=== PATIENT | female | born 1945 | race African-American/Black ===

== ENCOUNTER 2017-05-07 10:12 | Inpatient (IN) | payer OTHER, BC ==
--- NOTE | 2017-05-07 10:25 | PDOC ---
History of Present Illness - General History Source: Patient Exam Limitations: No Limitations - History of Present Illness Initial Comments: 05/07/17 12:23 72 y/o F with a PMHx of diabetes, ESRD (on dialysis T--), HTN, hypercholesterolemia, BKA of RLE, left toe amputation, left foot wounds, presents to the ED with generalized weakness, nausea, vomiting x1 since last night. She also reports diarrhea since Saturday. She complains of hotness on urination, but denies dysuria. Patient recently moved here from [place]. She was receiving dialysis and wound care in [place]. She recently saw her PCP who told her she needs to be dialyzed.She denies chest pain, SOB. Denies headache, dizziness. Denies fever, chills. PCP: Dr. Deep Melgoza Vascular Surgeon: Dr. Michi Metz Automatic Clipper And Stripper: Dr. Patricia Mcfarlane <Sharmin Michelle - Last Filed: 05/07/17 12:23> <Sravani Ventura - Last Filed: 05/07/17 13:12> - General Stated Complaint: NAUSEA Time Seen by Provider: 05/07/17 10:24 Past History <Sharmin Michelle - Last Filed: 05/07/17 12:23> - Past Medical History Diabetes: Yes Dialysis: Yes HTN: Yes Hypercholesterolemia: Yes - Surgical History Cholecystectomy: Yes - Suicide/Smoking/Psychosocial Hx Smoking Status: No Smoking History: Former smoker Years of Tobacco Use: 30 Have you smoked in the past 12 months: No Number of Cigarettes Smoked Daily: 0 If you are a former smoker, when did you quit?: 30 yrs ago Hx Alcohol Use: No Drug/Substance Use Hx: No <Sraavni Ventura - Last Filed: 05/07/17 13:12> - Past Medical History Allergies/Adverse Reactions: Allergies Allergy/AdvReac Type Severity Reaction Status Date / Time adhesive tape Allergy Intermediate Itching Verified 05/07/17 10:36 levofloxacin [From Levaquin] Allergy Unknown Verified 05/07/17 10:36 Home Medications: Ambulatory Orders Amino Acids/Protein Hydrolys [Prostat Sugar-Free Packet -] 30 ml PO TID #0 packet 08/26/12 Atorvastatin Ca [Lipitor] 10 mg PO HS #0 tablet 08/26/12 Furosemide [Lasix -] 40 mg PO BID #0 tablet 08/26/12 Insulin (Novolog) [Novolog Flexpen -] 0 units SQ ACHS #0 pen 08/26/12 Lactulose (Oral Use) [Cephulac -] 20 gm PO DAILY #0 ud 08/26/12 Multivitamins Ther W-Minerals [Theragran-M -] 1 each PO DAILY #0 tablet Sevelamer Carbonate [Renvela -] 1,600 mg PO TIDCM #0 tab 08/26/12 Valsartan [Diovan] 80 mg PO DAILY #0 tablet 08/26/12 Aspirin [ASA -] 81 mg PO DAILY #0 tab.chew 03/27/13 Bactrim DS - 1 tab PO BID 12/08/13 Lantus Solostar PEN - 20 units SCJ 0700 12/08/13 Carvedilol [Coreg -] 6.25 mg PO BID 05/07/17 Hydralazine HCl [Apresoline -] 25 mg PO QID 05/07/17 Isosorbide Mononitrate [Ismo -] 10 mg PO TID 05/07/17 Review of Systems - Review of Systems Able to Perform ROS?: Yes Comments:: 05/07/17 12:23 GENERAL/CONSTITUTIONAL: (+) weakness. No fever or chills. HEAD, EYES, EARS, NOSE AND THROAT: No change in vision. No ear pain or discharge. No sore throat. CARDIOVASCULAR: No chest pain or shortness of breath. RESPIRATORY: No cough, wheezing, or hemoptysis. GASTROINTESTINAL: (+) nausea, vomiting, diarrhea. No constipation. GENITOURINARY: (+) hotness on urination. No dysuria, frequency. MUSCULOSKELETAL: No joint or muscle swelling or pain. No neck or back pain. SKIN: No rash NEUROLOGIC: No headache, vertigo, loss of consciousness, or change in strength/ sensation. ENDOCRINE: No increased thirst. No abnormal weight change. HEMATOLOGIC/LYMPHATIC: No anemia, easy bleeding, or history of blood clots. ALLERGIC/IMMUNOLOGIC: No hives or skin allergy. <Sharmin Michelle - Last Filed: 05/07/17 12:23> *Physical Exam - Vital Signs Last Vital Signs Temp Pulse Resp BP Pulse Ox 97.9 F 79 18 174/81 100 09/26/17 10:31 05/07/17 10:31 05/07/17 10:31 05/07/17 10:31 05/07/17 10:31 - Physical Exam Comments: 05/07/17 12:24 GENERAL: Awake, alert, and fully oriented, in no acute distress HEAD: No signs of trauma EYES: PERRLA, EOMI, sclera anicteric, conjunctiva clear ENT: Auricles normal inspection, hearing grossly normal, nares patent, oropharynx clear without exudates. Moist mucosa NECK: Normal ROM, supple, no lymphadenopathy, JVD, or masses LUNGS: Breath sounds equal, clear to auscultation bilaterally. No wheezes, and no crackles HEART: Regular rate and rhythm, normal S1 and S2, no murmurs, rubs or gallops ABDOMEN: Soft, nontender, normoactive bowel sounds. No guarding, no rebound. No masses EXTREMITIES: RUE fistula with bruits and thrill. BKA with prosthetic of right leg. Left foot brace, left toe amputation. Normal range of motion, no edema. No clubbing or cyanosis. No cords, erythema, or tenderness NEUROLOGICAL: Cranial nerves II through XII grossly intact. Normal speech, normal gait SKIN: Warm, Dry, normal turgor, no rashes or lesions noted. <Sharmin Michelle - Last Filed: 05/07/17 12:23> ED Treatment Course - LABORATORY CBC & Chemistry Diagram: 05/07/17 11:18 05/07/17 11:18 - ADDITIONAL ORDERS Additional order review: Laboratory Results 05/07/17 05/07/17 05/07/17 11:18 11:18 11:15 PT with INR 11.40 INR 1.04 PTT (Actin FS) 32.1 VBG pH 7.34 POC VBG pCO2 38.7 POC VBG pO2 74.9 H Mixed VBG HCO3 20.4 05/07/17 11:18 RBC 3.56 L MCV 87.3 MCHC 31.7 L RDW 15.5 D MPV 9.1 Neutrophils % 61.6 Lymphocytes % 23.8 Monocytes % 9.2 Eosinophils % 4.4 Basophils % 1.0 - Medications Given in the ED: ED Medications Discontinued Medications Generic Name Dose Route Start Last Admin Trade Name Freq PRN Reason Stop Dose Admin Ondansetron HCl 4 mg 05/07/17 10:38 05/07/17 11:17 Zofran Injection IVPUSH 05/07/17 10:39 4 mg ONCE ONE Administration <Sharmin Michelle - Last Filed: 05/07/17 12:23> - LABORATORY CBC & Chemistry Diagram: 05/07/17 11:18 05/07/17 11:18 <Sravani Ventura - Last Filed: 05/07/17 13:12> Medical Decision Making - Critical Care Time Total Critical Care Time (minutes): 30 Critical Care Statement: The care of this patient involved high complexity decision making to prevent further life threatening deterioration of the patient 's condition and/or to evaluate & treat vital organ system(s) failure or risk of failure. - Medical Decision Making 05/07/17 12:57 a/p: 72yo female with missed dialysis since returning from [place]. now with n/v -labs -potassium -Cr -monitor -ekg -cxr -will need hd today 05/07/17 12:[address] Mcfarlane who will do HD today. 05/07/17 13:08 case discussed with SASKIA Gilliland for Dr. Snow. Accepts pt to service <Sravani Ventura - Last Filed: 05/07/17 13:12> *DC/Admit/Observation/Transfer - Attestations Scribe Attestion: 05/07/17 12:25 Documentation prepared by Sharmin Michelle, acting as nuclear medicine medical director for Sravani Ventura DO. <Sharmin Michelle - Last Filed: 05/07/17 12:23> - Discharge Dispostion Admit: Yes - Attestations Physician Attestion: 05/07/17 13:09 I, Dr. Sravani Ventura DO, attest that this document has been prepared under my direction and personally reviewed by me in its entirety. I further attest, that it accurately reflects all work, treatment, procedures and medical decision -making performed by me. <Sravani Ventura - Last Filed: 05/07/17 13:12> Diagnosis at time of Disposition: Hyperkalemia, ESRD (end stage renal disease) on dialysis - Discharge Dispostion Condition at time of disposition: Guarded
[2017-05-07] MEDS ORDERED: ONDANSETRON 4 MG/2 ML VIAL IVPUSH ONE (10:38)
[2017-05-07] MEDS ORDERED: ONDANSETRON 4 MG/2 ML VIAL ONE (10:42)
--- NOTE | 2017-05-07 11:18 | EKG ---
Test Reason : Blood Pressure : / mmHG Vent. Rate : 076 BPM Atrial Rate : 076 BPM P-R Int : 160 ms QRS Dur : 078 ms QT Int : 402 ms P-R-T Axes : 053 -27 029 degrees QTc Int : 452 ms NORMAL SINUS RHYTHM CANNOT RULE OUT ANTEROSEPTAL INFARCT , AGE UNDETERMINED ABNORMAL ECG WHEN COMPARED WITH ECG OF 24-MAR-2013 01:26, MINIMAL CRITERIA FOR ANTEROSEPTAL INFARCT ARE NOW PRESENT QUESTIONABLE CHANGE IN INITIAL FORCES OF LATERAL LEADS NONSPECIFIC T WAVE ABNORMALITY NO LONGER EVIDENT IN LATERAL LEADS CLINICAL CORRELATION IS RECOMMENDED Confirmed by MARGO CASTRO MD ([id number]) on 05/07/2017 11:18:01 AM Referred By: Confirmed By:MARGO CASTRO MD
[2017-05-07 11:23] LABS: EOSINOPHIL 4.4 % (0-4.5); MCH 27.7 pg (25.7-33.7); MCHC 31.7 g/dl (32.0-36.0); MEAN CELL VOLUME 87.3 fl (80-96); MEAN PLT VOLUME 9.1 fl (7.5-11.1); NEUTROPHILS 61.6 % (42.8-82.8); PLATELET COUNT 170 K/MM3 (134-434); RDW 15.5 % (11.6-15.6); WHITE BLOOD COUNT 7.4 K/mm3 (4.0-10.0)
[2017-05-07 11:39] LABS: INR 1.04 (0.82-1.09); PROTHROMBIN TIME (PATIENT) 11.4 SEC (9.98-11.88)
[2017-05-07 11:40] LABS: VENOUS BLOOD GAS HCO3 20.4 meq/L (19-25)
[2017-05-07 11:41] LABS: VENOUS PH 7.34 (7.32-7.42)
[2017-05-07 12:36] LABS: ANION GAP 14 (8-16); CALCIUM 8.6 mg/dL (8.5-10.1); CO2 21 mmol/L (21-32); GLUCOSE,RANDOM 142 mg/dL (74-106); MAGNESIUM 2.4 mg/dL (1.8-2.4); SGOT/AST 12 U/L (15-37)
[2017-05-07 12:44] LABS: ALK PHOS 361 U/L (45-117); BILIRUBIN,TOTAL 0.6 mg/dL (0.2-1.0); CPK 67 IU/L (26-192); SGPT/ALT 19 U/L (12-78); TOT PROT 6.6 g/dl (6.4-8.2); TROPONIN I < 0.01 ng/ml (0.00-0.05)
[2017-05-07 12:46] LABS: CREATININE 13.7 mg/dL (0.55-1.02)
[2017-05-07] MEDS ORDERED: FAMOTIDINE 20 MG/50 ML IVPB 50 ML IVPB ONE ×2 (12:54→13:06)
[2017-05-07] MEDS ORDERED: hydrALAZINE HCL 25 MG TABLET (FP) PO SCH (14:00)
[2017-05-07] MEDS ORDERED: ISOSORBIDE MONONITRATE 10 MG TABLET PO SCH (14:00)
[2017-05-07] MEDS ORDERED: AMINO ACIDS PO SCH (14:00)
[2017-05-07] MEDS ORDERED: PROTEIN HYDROLYS PO SCH (14:00)
[2017-05-07] MEDS ORDERED: [UNRECOGNIZED DRUG - OTHER] PO SCH (14:00)
[2017-05-07 16:38] VITALS: BMI 29.0
--- NOTE | 2017-05-07 17:00 | CON.NEP ---
Consult Consult Specialty:: Nephrology Reason for Consultation:: ESRD - History of Present Illness Chief Complaint: MOVED TO CT AFTER 3 YEARS HAS NO HD UNIT - History Source History Provided By: Patient - Past Medical History APPLICATION INTERNSHIP: Yes: Peripheral Neuropathy Renal/: Yes: Hemodialysis - Past Surgical History Past Surgical History: Yes: AV Fistula/Graft (RT RT BKA AND LEFT TMA) - Alcohol/Substance Use Hx Alcohol Use: No - Smoking History Smoking history: Former smoker Have you smoked in the past 12 months: No Aproximately how many cigarettes per day: 0 If you are a former smoker, when did you quit?: 30 yrs ago - Social History Usual Living Arrangement: Other (WILL LIVE NOW IN [place] WITH SON) Home Medications - Allergies Allergies/Adverse Reactions: Allergies Allergy/AdvReac Type Severity Reaction Status Date / Time adhesive tape Allergy Intermediate Itching Verified 05/07/17 10:36 levofloxacin [From Levaquin] Allergy Unknown Verified 05/07/17 10:36 - Home Medications Home Medications: Ambulatory Orders Atorvastatin Ca [Lipitor] 10 mg PO HS #0 tablet 08/26/12 Furosemide [Lasix -] 40 mg PO BID #0 tablet 08/26/12 Insulin (Novolog) [Novolog Flexpen -] 0 units SQ ACHS #0 pen 08/26/12 Multivitamins Ther W-Minerals [Theragran-M -] 1 each PO DAILY #0 tablet Aspirin [ASA -] 81 mg PO DAILY #0 tab.chew 03/27/13 Acetaminophen [Tylenol] 325 mg PO ASDIR 05/07/17 Amlodipine Besylate [Norvasc -] 5 mg PO DAILY 05/07/17 Carvedilol [Coreg -] 6.25 mg PO BID 05/07/17 Docusate Sodium [Dulcolax Stool Softener] 100 mg PO ASDIR 05/07/17 Hydralazine HCl [Apresoline -] 25 mg PO QID 05/07/17 Insulin Glargine,Hum.rec.anlog [Lantus Solostar PEN (NF)] 5 units SQ HS Isosorbide Mononitrate [Ismo -] 10 mg PO TID 05/07/17 Ondansetron HCl [Zofran] 8 mg PO ASDIR 05/07/17 Pantoprazole Sodium [Protonix] 40 mg PO BID 05/07/17 Sevelamer Carbonate [Renvela] 2,400 mg PO CM 05/07/17 Family Disease History - Family Disease History Family Disease History: Diabetes: Mother Review of Systems Unable to obtain ROS, reason: FEELS OK Nephrology Consult - Height Height: 5 ft 3 in - Weight Weight: 164 lb - BMI Body Mass Index (BMI): 29.0 - Lab Results Anion Gap: Anion Gap Anion Gap 14 (8-16) 05/07/17 11:18 - Imaging Chest X-ray: Report Reviewed - Physical Examination Vital Signs: Vital Signs Temperature 97.9 F 05/07/17 10:31 Pulse Rate 68 05/07/17 15:50 Respiratory Rate 18 05/07/17 15:50 Blood Pressure 131/64 05/07/17 15:50 O2 Sat by Pulse Oximetry (%) 98 05/07/17 14:10 Constitutional: Yes: No Distress Cardiovascular: Yes: Regular Rate and Rhythm Gastrointestinal: Yes: Normal Bowel Sounds Access for Hemodialysis: AV Fistula Extremities: Yes: Amputation (RT AND LEFT TMA) Edema: No Assessment/Plan 72 YEAR OLD WITH LONG STANDING DM ESRD ON HD FOR OVER 3 YEARS PVD POST RT BKA IN [place] AND LEFT TMA NOW BACK IN [place] NEEDS PT EVAL NEED TO DECIDE ABOUT STR VS HOME OUT PT ARRANGEMENTS SHOULD BE AT [facility] [id number] OR IF NEEDS REHAB WITH INHOUSE HD THEN [facility] IN [place] FOR HTN LEAVE ON COREG AND DIOVAN STOP HYDRALAZINE AND ISOSORBIDE LASIX PO4 KEEP ON RENVELA 2 TID WITH MEALS SEEN AT HD HIPS 20 NR 3.15 K2 [employer] 2 KG EPO 10K REPEAT HD SENDY PLEASE CALL ME FOR QUESTIONS [phone]
[2017-05-07] MEDS ORDERED: EPOETIN ALFA 10,000 UNIT/1 ML VIAL IVPUSH ONE (17:45)
[2017-05-07] MEDS ORDERED: ISOSORBIDE DINITRATE 10 MG TABLET (FP) PO SCH (18:00)
[2017-05-07] MEDS: SEVELAMER CARBONATE 800 MG TAB (FP) PO SCH (19:46)
[2017-05-07] MEDS: INSULIN SLIDING SCALE (NOVOLOG) 1 VIAL SQ SCH ×2 (19:47→22:43)
[2017-05-07] MEDS: VALSARTAN 80 MG TABLET (UD) PO SCH (22:16)
[2017-05-07] MEDS: CARVEDILOL 12.5 MG TABLET (FP) PO SCH (22:16)
[2017-05-07] MEDS: ATORVASTATIN CA 10 MG TABLET (FP) PO SCH (22:16)
[2017-05-07] MEDS: HEPARIN NA (PORCINE) 5,000 UNITS/ML 1ML VIAL SQ SCH (22:17)
[2017-05-07] MEDS: BANATROL PLUS POWDER PACKET PO SCH (23:25)
[2017-05-08] MEDS ORDERED: PT OWN MED DRAWER 7, Y5N ONE ×4 (00:38→20:36)
[2017-05-08] MEDS: BANATROL PLUS POWDER PACKET PO SCH ×3 (07:10→21:58)
[2017-05-08] MEDS: INSULIN SLIDING SCALE (NOVOLOG) 1 VIAL SQ SCH ×4 (07:17→22:05)
[2017-05-08 08:41] LABS: BASOPHIL 0.8 % (0-2.0); EOSINOPHIL 4.2 % (0-4.5); MCH 27.6 pg (25.7-33.7); MCHC 31.8 g/dl (32.0-36.0); MEAN CELL VOLUME 86.8 fl (80-96); MEAN PLT VOLUME 8.3 fl (7.5-11.1); PLATELET COUNT 166 K/MM3 (134-434); RDW 15.2 % (11.6-15.6); WHITE BLOOD COUNT 5.3 K/mm3 (4.0-10.0)
[2017-05-08 09:19] LABS: ALBUMIN 2.9 g/dl (3.4-5.0); ANION GAP 9 (8-16); BILIRUBIN,TOTAL 0.4 mg/dL (0.2-1.0); CALCIUM 9.2 mg/dL (8.5-10.1); CO2 31 mmol/L (21-32); CREATININE 7.1 mg/dL (0.55-1.02); GLUCOSE,RANDOM 127 mg/dL (74-106); MAGNESIUM 2.2 mg/dL (1.8-2.4); PHOSPHOROUS 5.5 mg/dL (2.5-4.9); SGOT/AST 10 U/L (15-37); SGPT/ALT 16 U/L (12-78); TOT PROT 6.4 g/dl (6.4-8.2)
[2017-05-08 09:20] LABS: ALK PHOS 353 U/L (45-117)
[2017-05-08] MEDS ORDERED: VALSARTAN 80 MG TABLET (UD) PO SCH (10:00)
[2017-05-08] MEDS ORDERED: LACTULOSE 20 GM/30 ML UDC (FOR ORAL USE ONLY) PO SCH (10:00)
--- NOTE | 2017-05-08 10:58 | CONSULT ---
Consult Consult Specialty:: endocrine Referred by:: darcy payton NP Reason for Consultation:: diabetes mellitus/esrd - History of Present Illness Chief Complaint: diabetic foot infection wound History of Present Illness: 72 y/o F with a PMHx of diabetes, ESRD (on dialysis T--), HTN, hypercholesterolemia, BKA of RLE, left toe amputation, left foot wounds, presents to the ED with generalized weakness, nausea, vomiting x1 since last night. She also reports diarrhea since Saturday. 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: Yes: Peripheral Neuropathy Renal/: Yes: Hemodialysis - Past Surgical History Past Surgical History: Yes: AV Fistula/Graft (RT RT BKA AND LEFT TMA) - Alcohol/Substance Use Hx Alcohol Use: No - Smoking History Smoking history: Former smoker Have you smoked in the past 12 months: No Aproximately how many cigarettes per day: 0 If you are a former smoker, when did you quit?: 30 yrs ago - Social History Usual Living Arrangement: Other (WILL LIVE NOW IN [place] WITH SON) Home Medications - Allergies Allergies/Adverse Reactions: Allergies Allergy/AdvReac Type Severity Reaction Status Date / Time adhesive tape Allergy Intermediate Itching Verified 05/07/17 10:36 levofloxacin [From Levaquin] Allergy Unknown Verified 05/07/17 10:36 - Home Medications Home Medications: Ambulatory Orders Atorvastatin Ca [Lipitor] 10 mg PO HS #0 tablet 08/26/12 Furosemide [Lasix -] 40 mg PO BID #0 tablet 08/26/12 Insulin (Novolog) [Novolog Flexpen -] 0 units SQ ACHS #0 pen 08/26/12 Multivitamins Ther W-Minerals [Theragran-M -] 1 each PO DAILY #0 tablet Aspirin [ASA -] 81 mg PO DAILY #0 tab.chew 03/27/13 Acetaminophen [Tylenol] 325 mg PO ASDIR 05/07/17 Amlodipine Besylate [Norvasc -] 5 mg PO DAILY 05/07/17 Carvedilol [Coreg -] 6.25 mg PO BID 05/07/17 Docusate Sodium [Dulcolax Stool Softener] 100 mg PO ASDIR 05/07/17 Hydralazine HCl [Apresoline -] 25 mg PO QID 05/07/17 Insulin Glargine,Hum.rec.anlog [Lantus Solostar PEN (NF)] 5 units SQ HS Isosorbide Mononitrate [Ismo -] 10 mg PO TID 05/07/17 Ondansetron HCl [Zofran] 8 mg PO ASDIR 05/07/17 Pantoprazole Sodium [Protonix] 40 mg PO BID 05/07/17 Sevelamer Carbonate [Renvela] 2,400 mg PO CM 05/07/17 Family Disease History - Family Disease History Family Disease History: Diabetes: Mother Review of Systems - Review of Systems Constitutional: reports: Lethargy, Weakness Eyes: reports: Blurred Vision HENT: reports: No Symptoms Neck: reports: No Symptoms Cardiovascular: reports: Shortness of Breath Respiratory: reports: Exercise Intolerance, SOB on Exertion Gastrointestinal: reports: Bloating Genitourinary: reports: Burning Breasts: reports: No Symptoms Reported Musculoskeletal: reports: Muscle Pain, Muscle Cramps, Muscle Weakness Neurological: reports: Numbness, Unsteady Gait, Weakness Endocrine: reports: Unexplained Weight Loss Physical Exam Vital Signs: Vital Signs Temperature 98.2 F 05/08/17 08:30 Pulse Rate 73 05/08/17 10:25 Respiratory Rate 18 05/08/17 10:25 Blood Pressure 140/59 05/08/17 10:25 O2 Sat by Pulse Oximetry (%) 98 05/07/17 21:00 Constitutional: Yes: Anxious Eyes: Yes: EOM Intact HENT: Yes: Normocephalic Neck: Yes: Trachea Midline Cardiovascular: Yes: Regular Rate and Rhythm Respiratory: Yes: CTA Bilaterally Gastrointestinal: Yes: Normal Bowel Sounds ...Rectal Exam: Yes: Deferred Breast(s): Yes: WNL Musculoskeletal: Yes: Muscle Weakness Labs: CBC, BMP 05/08/17 07:10 05/08/17 07:10 Problem List - Problems (1) ESRD (end stage renal disease) on dialysis Code(s): N18.6 - END STAGE RENAL DISEASE Z99.2 - DEPENDENCE ON RENAL DIALYSIS (2) Hyperkalemia Code(s): E87.5 - HYPERKALEMIA (3) Type 2 diabetes mellitus with retinopathy without macular edema Code(s): E11.319 - TYPE 2 DIABETES W UNSP DIABETIC RTNOP W/O MACULAR EDEMA Assessment/Plan Current Active Problems ESRD (end stage renal disease) on dialysis (Acute) Hyperkalemia (Acute) iddm esrd htn diabetic foot infection sp amputation rt bka Abnormal Lab Results 05/07/17 05/07/17 05/07/17 11:15 11:18 11:18 RBC 3.56 L Hgb 9.9 L Hct 31.1 L MCHC 31.7 L Monocytes % POC VBG pO2 74.9 H Potassium 5.7 H D BUN 95 H D Creatinine 13.7 H* D Random Glucose 142 H Hemoglobin A1c % Phosphorus Ferritin AST 12 L D Alkaline Phosphatase 361 H D Albumin 3.0 L 05/07/17 05/08/17 05/08/17 11:18 07:10 07:10 RBC Hgb 10.4 L Hct MCHC 31.8 L Monocytes % 11.4 H POC VBG pO2 Potassium BUN 41 H D Creatinine 7.1 H D Random Glucose 127 H Hemoglobin A1c % Phosphorus 6.0 H D 5.5 H Ferritin AST 10 L Alkaline Phosphatase 353 H Albumin 2.9 L 05/08/17 05/08/17 07:10 07:10 RBC Hgb Hct MCHC Monocytes % POC VBG pO2 Potassium BUN Creatinine Random Glucose Hemoglobin A1c % 8.0 H D Phosphorus Ferritin 1310.494 H AST Alkaline Phosphatase Albumin Laboratory Results - last 24 hr 05/07/17 05/07/17 05/07/17 11:15 11:18 11:18 WBC RBC Hgb Hct MCV MCH MCHC RDW Plt Count MPV Neutrophils % Lymphocytes % Monocytes % Eosinophils % Basophils % PT with INR INR PTT (Actin FS) 32.1 VBG pH 7.34 POC VBG pCO2 38.7 POC VBG pO2 74.9 H Mixed VBG HCO3 20.4 Sodium 138 Potassium 5.7 H D Chloride 103 Carbon Dioxide 21 D Anion Gap 14 BUN 95 H D Creatinine 13.7 H* D Creat Clearance w eGFR 2.67 POC Glucometer Random Glucose 142 H Hemoglobin A1c % Calcium 8.6 Phosphorus Magnesium 2.4 D Ferritin Total Bilirubin 0.6 D AST 12 L D ALT 19 D Alkaline Phosphatase 361 H D Creatine Kinase 67 Troponin I < 0.01 Total Protein 6.6 Albumin 3.0 L Lipase 298 05/07/17 05/07/17 05/07/17 11:18 11:18 11:18 WBC 7.4 RBC 3.56 L Hgb 9.9 L Hct 31.1 L MCV 87.3 MCH 27.7 D MCHC 31.7 L RDW 15.5 D Plt Count 170 D MPV 9.1 Neutrophils % 61.6 Lymphocytes % 23.8 Monocytes % 9.2 Eosinophils % 4.4 Basophils % 1.0 PT with INR 11.40 INR 1.04 PTT (Actin FS) VBG pH POC VBG pCO2 POC VBG pO2 Mixed VBG HCO3 Sodium Potassium Chloride Carbon Dioxide Anion Gap BUN Creatinine Creat Clearance w eGFR POC Glucometer Random Glucose Hemoglobin A1c % Calcium Phosphorus 6.0 H D Magnesium Ferritin Total Bilirubin AST ALT Alkaline Phosphatase Creatine Kinase Troponin I Total Protein Albumin Lipase 05/07/17 05/07/17 05/08/17 16:35 22:42 07:10 WBC 5.3 RBC 3.75 Hgb 10.4 L Hct 32.5 MCV 86.8 MCH 27.6 MCHC 31.8 L RDW 15.2 Plt Count 166 MPV 8.3 Neutrophils % 57.0 Lymphocytes % 26.6 Monocytes % 11.4 H Eosinophils % 4.2 Basophils % 0.8 PT with INR INR PTT (Actin FS) VBG pH POC VBG pCO2 POC VBG pO2 Mixed VBG HCO3 Sodium Potassium Chloride Carbon Dioxide Anion Gap BUN Creatinine Creat Clearance w eGFR POC Glucometer 231 129 Random Glucose Hemoglobin A1c % Calcium Phosphorus Magnesium Ferritin Total Bilirubin AST ALT Alkaline Phosphatase Creatine Kinase Troponin I Total Protein Albumin Lipase 05/08/17 05/08/17 05/08/17 07:10 07:10 07:10 WBC RBC Hgb Hct MCV MCH MCHC RDW Plt Count MPV Neutrophils % Lymphocytes % Monocytes % Eosinophils % Basophils % PT with INR INR PTT (Actin FS) VBG pH POC VBG pCO2 POC VBG pO2 Mixed VBG HCO3 Sodium 141 Potassium 4.2 D Chloride 101 Carbon Dioxide 31 D Anion Gap 9 BUN 41 H D Creatinine 7.1 H D Creat Clearance w eGFR 5.71 POC Glucometer Random Glucose 127 H Hemoglobin A1c % 8.0 H D Calcium 9.2 Phosphorus 5.5 H Magnesium 2.2 Ferritin 1310.494 H Total Bilirubin 0.4 D AST 10 L ALT 16 Alkaline Phosphatase 353 H Creatine Kinase Troponin I Total Protein 6.4 Albumin 2.9 L Lipase 05/08/17 07:13 WBC RBC Hgb Hct MCV MCH MCHC RDW Plt Count MPV Neutrophils % Lymphocytes % Monocytes % Eosinophils % Basophils % PT with INR INR PTT (Actin FS) VBG pH POC VBG pCO2 POC VBG pO2 Mixed VBG HCO3 Sodium Potassium Chloride Carbon Dioxide Anion Gap BUN Creatinine Creat Clearance w eGFR POC Glucometer 128 Random Glucose Hemoglobin A1c % Calcium Phosphorus Magnesium Ferritin Total Bilirubin AST ALT Alkaline Phosphatase Creatine Kinase Troponin I Total Protein Albumin Lipase plan: bgm qid novolog scale levemir 15 units am ck hba1c wound care lle hd to start
--- NOTE | 2017-05-08 11:14 | PN ---
Progress Note (short form) - Note Progress Note: Vascular Surgery Pt seen and examined. Doing well. Seen in HD Right lower ext stump clean. No open wounds Left foot -- S/P amputation. Healed. There is callus and dry skin. Moisterize Left foot. That should help to soften up the callus. Gato Feliz DO
[2017-05-08] MEDS: ASPIRIN 81 MG CHEWABLE TABLETS PO SCH (14:02)
[2017-05-08] MEDS: MULTIVITAMINS THER W-MINERALS COMBO TABLET (FP) PO SCH (14:03)
[2017-05-08] MEDS: CARVEDILOL 12.5 MG TABLET (FP) PO SCH ×2 (14:03→22:01)
[2017-05-08] MEDS: SEVELAMER CARBONATE 800 MG TAB (FP) PO SCH ×3 (14:04→17:39)
[2017-05-08] MEDS: HEPARIN NA (PORCINE) 5,000 UNITS/ML 1ML VIAL SQ SCH ×2 (14:05→22:03)
--- NOTE | 2017-05-08 15:09 | HP ---
Admitting History and Physical - Primary Care Physician PCP: Deep Melgoza (Quang Zaldivar) - Admission Chief Complaint: Acute on chronic renal failure History of Present Illness: Ms. Cruz is a pleasant 72 year old female that came in through [facility] after being seen by her primary care provider for acute on chronic renal failure. As per her statement, she went to visit [place] 3 years ago, got an infection of her RLE, had amputation and was at [facility] in [place], [place]. Then she went to her sister's house. While she was doing her PT after RLE amputation, her Left foot got infected and she got all toes amputated, after which she went to [facility] in [place], [place]. She was in [place] for 3 years. She has ESRD was being dialyzed 3 days/week in [place]. She recently moved back to [place] with her son 1 week ago with no prior arrangements for dialysis. 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 Renal/: Yes: Hemodialysis - Past Surgical History Past Surgical History: Yes: AV Fistula/Graft (RT RT BKA AND LEFT TMA) - Smoking History Smoking history: Former smoker Have you smoked in the past 12 months: No Aproximately how many cigarettes per day: 0 If you are a former smoker, when did you quit?: 30 yrs ago - Alcohol/Substance Use Hx Alcohol Use: No Home Medications - Allergies Allergies/Adverse Reactions: Allergies Allergy/AdvReac Type Severity Reaction Status Date / Time adhesive tape Allergy Intermediate Itching Verified 05/07/17 10:36 levofloxacin [From Levaquin] Allergy Unknown Verified 05/07/17 10:36 - Home Medications Home Medications: Ambulatory Orders Atorvastatin Ca [Lipitor] 10 mg PO HS #0 tablet 08/26/12 Furosemide [Lasix -] 40 mg PO BID #0 tablet 08/26/12 Insulin (Novolog) [Novolog Flexpen -] 0 units SQ ACHS #0 pen 08/26/12 Multivitamins Ther W-Minerals [Theragran-M -] 1 each PO DAILY #0 tablet Aspirin [ASA -] 81 mg PO DAILY #0 tab.chew 03/27/13 Acetaminophen [Tylenol] 325 mg PO ASDIR 05/07/17 Amlodipine Besylate [Norvasc -] 5 mg PO DAILY 05/07/17 Carvedilol [Coreg -] 6.25 mg PO BID 05/07/17 Docusate Sodium [Dulcolax Stool Softener] 100 mg PO ASDIR 05/07/17 Hydralazine HCl [Apresoline -] 25 mg PO QID 05/07/17 Insulin Glargine,Hum.rec.anlog [Lantus Solostar PEN (NF)] 5 units SQ HS Isosorbide Mononitrate [Ismo -] 10 mg PO TID 05/07/17 Ondansetron HCl [Zofran] 8 mg PO ASDIR 05/07/17 Pantoprazole Sodium [Protonix] 40 mg PO BID 05/07/17 Sevelamer Carbonate [Renvela] 2,400 mg PO CM 05/07/17 Family Disease History - Family Disease History Family Disease History: Diabetes: Mother Review of Systems - Review of Systems Constitutional: reports: Weakness Eyes: reports: No Symptoms HENT: reports: No Symptoms Neck: reports: No Symptoms Cardiovascular: reports: No Symptoms Respiratory: reports: No Symptoms Gastrointestinal: reports: No Symptoms Genitourinary: reports: No Symptoms Breasts: reports: No Symptoms Reported Musculoskeletal: reports: No Symptoms Integumentary: reports: No Symptoms Neurological: reports: No Symptoms Endocrine: reports: No Symptoms Hematology/Lymphatic: reports: No Symptoms Psychiatric: reports: No Symptoms Pain Intensity: 0 Physical Examination Vital Signs: Vital Signs Temperature 98.2 F 05/08/17 08:30 Pulse Rate 73 05/08/17 12:40 Respiratory Rate 18 05/08/17 12:40 Blood Pressure 141/68 05/08/17 12:40 O2 Sat by Pulse Oximetry (%) 98 05/07/17 21:00 Constitutional: Yes: Well Nourished, No Distress, Calm Cardiovascular: Yes: Regular Rate and Rhythm Respiratory: Yes: Regular Gastrointestinal: Yes: Normal Bowel Sounds Extremities: Yes: Amputation (RLE BKA-stump LLE toes ampution-stump) Edema: No Labs: CBC, BMP 05/08/17 07:10 05/08/17 07:10 Imaging - Results Chest X-ray: Report Reviewed Problem List - Problems (1) ESRD (end stage renal disease) on dialysis Assessment/Plan: -Received dialysis yesterday and today -renal on board -creatinine improved -repeat lab in AM -dialyze as per millinery salesperson instructions Code(s): N18.6 - END STAGE RENAL DISEASE Z99.2 - DEPENDENCE ON RENAL DIALYSIS (2) Hyperkalemia Assessment/Plan: -resolved Code(s): E87.5 - HYPERKALEMIA (3) Type 2 diabetes mellitus with retinopathy without macular edema Assessment/Plan: -uncontrolled, A1C at 8.0 -seen by endocrinology -on insulin sliding scale and long acting Code(s): E11.319 - TYPE 2 DIABETES W UNSP DIABETIC RTNOP W/O MACULAR EDEMA (4) Amputation of both lower extremities Assessment/Plan: RLE BKA LLE toes -Physical therapy for gait training, has her own prosthesis and shoes. Code(s): S88.911A - COMPLETE TRAUMATIC AMPUTATION OF R LOW LEG, LEVEL UNSP, INIT S88.912A - COMPLETE TRAUMATIC AMPUTATION OF L LOW LEG, LEVEL UNSP, INIT Assessment/Plan see problem list
[2017-05-08] MEDS ORDERED: INSULIN (NOVOLOG) ASPART 100 UNITS/ML 10ML VIAL ONE (20:35)
[2017-05-08] MEDS: VALSARTAN 80 MG TABLET (UD) PO SCH (22:03)
[2017-05-08] MEDS: ATORVASTATIN CA 10 MG TABLET (FP) PO SCH (22:05)
[2017-05-09] MEDS: BANATROL PLUS POWDER PACKET PO SCH ×4 (06:00→21:30)
[2017-05-09 06:07] LABS: SERUM IRON 103 ug/dL (27-139); TOTAL IRON BINDING CAPACITY 133 ug/dL (250-450); UIBC 30 ug/dL (118-369)
[2017-05-09] MEDS: INSULIN DETEMIR 100 UNITS/ML MDV SQ SCH (06:27)
[2017-05-09] MEDS: INSULIN SLIDING SCALE (NOVOLOG) 1 VIAL SQ SCH ×4 (06:27→21:35)
[2017-05-09] MEDS ORDERED: INSULIN (NOVOLOG) ASPART 100 UNITS/ML 10ML VIAL ONE ×3 (06:46→20:38)
[2017-05-09] MEDS ORDERED: INSULIN DETEMIR 100 UNITS/ML MDV SQ ONE (06:46)
[2017-05-09] MEDS: SEVELAMER CARBONATE 800 MG TAB (FP) PO SCH ×3 (08:25→17:34)
[2017-05-09] MEDS: MULTIVITAMINS THER W-MINERALS COMBO TABLET (FP) PO SCH (10:09)
[2017-05-09] MEDS: HEPARIN NA (PORCINE) 5,000 UNITS/ML 1ML VIAL SQ SCH ×2 (10:09→21:33)
[2017-05-09] MEDS: ASPIRIN 81 MG CHEWABLE TABLETS PO SCH (10:09)
[2017-05-09] MEDS: CARVEDILOL 12.5 MG TABLET (FP) PO SCH ×2 (10:09→21:31)
--- NOTE | 2017-05-09 10:33 | PN ---
Progress Note, Physician Chief Complaint: awake alert today no complaints - Current Medication List Current Medications: Active Medications Aspirin (Asa -) 81 mg PO DAILY [facility] Last Admin: 05/09/17 10:09 Dose: 81 mg Atorvastatin Calcium (Lipitor -) 10 mg PO HS [facility] Last Admin: 05/08/17 22:05 Dose: 10 mg Carvedilol (Coreg -) 6.25 mg PO BID [facility] Last Admin: 05/09/17 10:09 Dose: 6.25 mg Heparin Sodium (Porcine) (Heparin -) 5,000 unit SQ BID [facility] Last Admin: 05/09/17 10:09 Dose: 5,000 unit Insulin Aspart (Novolog Vial Sliding Scale -) 1 vial SQ ACHS [facility] PRN Reason: Protocol Last Admin: 05/09/17 06:27 Dose: Not Given Insulin Detemir (Levemir Vial) 15 units SQ AM [facility] Last Admin: 05/09/17 06:27 Dose: 15 units Multivitamins/Minerals (Theragran-M) 1 each PO DAILY [facility] Last Admin: 05/09/17 10:09 Dose: 1 each Sevelamer Carbonate (Renvela -) 1,600 mg PO TIDCM [facility] Last Admin: 05/09/17 08:25 Dose: 1,600 mg Valsartan (Diovan -) 80 mg PO HS [facility] Last Admin: 05/08/17 22:03 Dose: 80 mg - Objective Vital Signs: Vital Signs Temperature 98.0 F 05/09/17 05:54 Pulse Rate 68 05/09/17 05:54 Respiratory Rate 18 05/09/17 05:54 Blood Pressure 134/47 05/09/17 05:54 O2 Sat by Pulse Oximetry (%) 97 05/08/17 21:00 Constitutional: Yes: Calm Neck: Yes: Trachea Midline Cardiovascular: Yes: Regular Rate and Rhythm, S1, S2 Respiratory: Yes: CTA Bilaterally Gastrointestinal: Yes: Normal Bowel Sounds, Soft Extremities: Yes: Other (R BKA left TMA) Neurological: Yes: Alert, Oriented Labs: CBC, BMP 05/08/17 07:10 05/08/17 07:10 INR, PTT INR 1.04 (0.82-1.09) 05/07/17 11:18 Problem List - Problems (1) Amputation of both lower extremities Assessment/Plan: PT eval Code(s): S88.911A - COMPLETE TRAUMATIC AMPUTATION OF R LOW LEG, LEVEL UNSP, INIT S88.912A - COMPLETE TRAUMATIC AMPUTATION OF L LOW LEG, LEVEL UNSP, INIT (2) ESRD (end stage renal disease) on dialysis Assessment/Plan: HD per renal on renvela on procrit Code(s): N18.6 - END STAGE RENAL DISEASE Z99.2 - DEPENDENCE ON RENAL DIALYSIS (3) Hyperkalemia Assessment/Plan: improved Code(s): E87.5 - HYPERKALEMIA (4) HTN (hypertension) Assessment/Plan: coreg stop hydralazine,isosorbide nad lasix Code(s): I10 - ESSENTIAL (PRIMARY) HYPERTENSION (5) Type 2 diabetes mellitus with retinopathy without macular edema Assessment/Plan: uncontrolled levemir 15 units in AM Code(s): E11.319 - TYPE 2 DIABETES W UNSP DIABETIC RTNOP W/O MACULAR EDEMA Assessment/Plan to arrange for possible STR and then HD at the facility
--- NOTE | 2017-05-09 14:27 | PN ---
Progress Note (short form) - Note Progress Note: RENAL DIALYZED YESTERDAY FEELS OK SOME ABD PAIN FEELS SHE CAN STAND UP WITH HELP SON WITH HER WANTS TO GO HOME AND GET HOME THERAPY BP GOOD BG GOOD A1C 8 CHEST CLEAR CVS S1 S2 ABD SOFT RT ARM AVF EXT RT BKA LEFT TMA HEALED LABS NOTED 72 WITH ESRD HTN DM PVD NEEDS PT HD IN AM OUT PT ARRANGEMENTS TO BE MADE CASE D/W RESEARCH STUDY ASSISTANT
[2017-05-09] MEDS ORDERED: PT OWN MED DRAWER 7, Y5N ONE ×2 (15:42→20:39)
[2017-05-09] MEDS: VALSARTAN 80 MG TABLET (UD) PO SCH (21:33)
[2017-05-09] MEDS: ATORVASTATIN CA 10 MG TABLET (FP) PO SCH (21:34)
[2017-05-09 22:37] LABS: URINE APPEARANCE TURBID; URINE BILIRUBIN NEGATIVE (NEGATIVE); URINE BLOOD 1+ (NEGATIVE); URINE COLOR AMBER; URINE GLUCOSE (UA) NEGATIVE (NEGATIVE); URINE KETONE NEGATIVE (NEGATIVE); URINE LEUK ESTERASE 3+ (NEGATIVE); URINE NITRITE NEGATIVE (NEGATIVE); URINE PROTEIN 3+ (NEGATIVE); URINE UROBILINOGEN NEGATIVE mg/dL (0.2-1.0)
[2017-05-09 22:41] LABS: URINE BACTERIA MANY /hpf (NONE SEEN); URINE RBC 11 /hpf (0-3); URINE WBC 426 /hpf (3-5)
[2017-05-10 00:07] LABS: HEP B SURFACE AB Reactive (.)
[2017-05-10] MEDS: BANATROL PLUS POWDER PACKET PO SCH ×2 (06:15→13:09)
[2017-05-10] MEDS: INSULIN DETEMIR 100 UNITS/ML MDV SQ SCH (06:23)
[2017-05-10] MEDS: INSULIN SLIDING SCALE (NOVOLOG) 1 VIAL SQ SCH ×3 (06:28→16:29)
[2017-05-10] MEDS ORDERED: INSULIN (NOVOLOG) ASPART 100 UNITS/ML 10ML VIAL ONE (06:43)
[2017-05-10] MEDS ORDERED: INSULIN DETEMIR 100 UNITS/ML MDV SQ ONE (06:43)
[2017-05-10] MEDS ORDERED: PT OWN MED DRAWER 7, Y5N ONE (06:44)
[2017-05-10] MEDS: SEVELAMER CARBONATE 800 MG TAB (FP) PO SCH ×2 (09:13→12:59)
--- NOTE | 2017-05-10 10:05 | PN ---
Progress Note, Physician Chief Complaint: patient seen in HD today History of Present Illness: has not had BM in a few days - Current Medication List Current Medications: Active Medications Aspirin (Asa -) 81 mg PO DAILY [facility] Last Admin: 05/09/17 10:09 Dose: 81 mg Atorvastatin Calcium (Lipitor -) 10 mg PO HS [facility] Last Admin: 05/09/17 21:34 Dose: 10 mg Carvedilol (Coreg -) 6.25 mg PO BID [facility] Last Admin: 05/09/17 21:31 Dose: 6.25 mg Epoetin Willis (Epogen -) 10,000 units IVPUSH ONCE ONE Stop: 05/10/17 14:30 Heparin Sodium (Porcine) (Heparin -) 5,000 unit SQ BID [facility] Last Admin: 05/09/17 21:33 Dose: 5,000 unit Insulin Aspart (Novolog Vial Sliding Scale -) 1 vial SQ ACHS [facility] PRN Reason: Protocol Last Admin: 05/10/17 06:28 Dose: Not Given Insulin Detemir (Levemir Vial) 15 units SQ AM [facility] Last Admin: 05/10/17 06:23 Dose: 15 units Multivitamins/Minerals (Theragran-M) 1 each PO DAILY [facility] Last Admin: 05/09/17 10:09 Dose: 1 each Sevelamer Carbonate (Renvela -) 1,600 mg PO TIDCM [facility] Last Admin: 05/10/17 09:13 Dose: 1,600 mg Valsartan (Diovan -) 80 mg PO HS [facility] Last Admin: 05/09/17 21:33 Dose: 80 mg - Objective Vital Signs: Vital Signs Temperature 98.4 F 05/10/17 06:00 Pulse Rate 71 05/10/17 06:00 Respiratory Rate 18 05/10/17 06:00 Blood Pressure 146/63 05/10/17 06:00 O2 Sat by Pulse Oximetry (%) 98 05/09/17 21:00 Constitutional: Yes: Calm Neck: Yes: Trachea Midline Cardiovascular: Yes: Regular Rate and Rhythm, S1, S2 Respiratory: Yes: CTA Bilaterally Gastrointestinal: Yes: Normal Bowel Sounds, Soft Extremities: Yes: Other (R bka L TMA RUE AVF) Edema: No Neurological: Yes: Alert, Oriented Labs: CBC, BMP 05/08/17 07:10 05/08/17 07:10 INR, PTT INR 1.04 (0.82-1.09) 05/07/17 11:18 Problem List - Problems (1) ESRD (end stage renal disease) on dialysis Assessment/Plan: HD per renal on renvela on procrit Code(s): N18.6 - END STAGE RENAL DISEASE Z99.2 - DEPENDENCE ON RENAL DIALYSIS (2) Amputation of both lower extremities Assessment/Plan: Patient wants home service will try to talk to her about going to STR Code(s): S88.911A - COMPLETE TRAUMATIC AMPUTATION OF R LOW LEG, LEVEL UNSP, INIT S88.912A - COMPLETE TRAUMATIC AMPUTATION OF L LOW LEG, LEVEL UNSP, INIT (3) Hyperkalemia Assessment/Plan: improved Code(s): E87.5 - HYPERKALEMIA (4) HTN (hypertension) Assessment/Plan: coreg stop hydralazine,isosorbide nad lasix Code(s): I10 - ESSENTIAL (PRIMARY) HYPERTENSION (5) Type 2 diabetes mellitus with retinopathy without macular edema Assessment/Plan: hga1c 8 seen by matthew rosa 15 units in AM Code(s): E11.319 - TYPE 2 DIABETES W UNSP DIABETIC RTNOP W/O MACULAR EDEMA Assessment/Plan family wants her to go to STR patient agreeing to STR with HD center next to it SW aware to d/w daughter as well dc today once bed available after HD
[2017-05-10] MEDS: CARVEDILOL 12.5 MG TABLET (FP) PO SCH (10:08)
[2017-05-10] MEDS: HEPARIN NA (PORCINE) 5,000 UNITS/ML 1ML VIAL SQ SCH (10:09)
[2017-05-10] MEDS ORDERED: EPOETIN ALFA 10,000 UNIT/1 ML VIAL IVPUSH ONE (11:00)
[2017-05-10] MEDS ORDERED: BISACODYL 5 MG TABLET.DR (FP) PO ONE (11:15)
[2017-05-10] MEDS ORDERED: POLYETHYLENE GLYCOL 3350 119 GM BTL PO ONE (11:15)
[2017-05-10] MEDS: ASPIRIN 81 MG CHEWABLE TABLETS PO SCH (12:59)
[2017-05-10] MEDS: MULTIVITAMINS THER W-MINERALS COMBO TABLET (FP) PO SCH (12:59)
[2017-05-10 15:14] VITALS: BP 143/70; PULSE 72; TEMP 97.9
[2017-05-10] MEDS ORDERED: CARVEDILOL 6.25 MG TABLET (FP) PO SCH (15:56)
--- NOTE | 2017-05-10 16:31 | PN ---
Progress Note (short form) - Note Progress Note: RENAL 72 WITH ESRD HTN DM PVD SEEN AT THE END OF HD HIPS20 3 HR K2 CA2.5 [facility] 2 KG BP STABLE GOING HOME TODAY OUT PT SPOT AT [facility] WILL NEED TO TRANSFER OUT PT TO [facility]
== END 2017-05-10 17:09 | disposition home or self-care (01) | DRG 640 ==
LOC: JER 10:12 → JERBED 13:09 → J5S 15:40
PROVIDERS: ADMIT Family Medicine; ATTEND Family Medicine
PROC: 5A1D60Z (ICD-10-PCS; principal; 2017-05-10)
DX: E87.5 Hyperkalemia (principal); N18.6 End stage renal disease; I12.0 Hypertensive chronic kidney disease with stage 5 chronic kidney disease or end stage renal disease; Z99.2 Dependence on renal dialysis; E11.22 Type 2 diabetes mellitus with diabetic chronic kidney disease; E11.65 Type 2 diabetes mellitus with hyperglycemia; Z79.4 Long term (current) use of insulin; E11.319 Type 2 diabetes mellitus with unspecified diabetic retinopathy without macular edema; Z87.891 Personal history of nicotine dependence
CPT/HCPCS: 36415; 71010-TC; 80053; 81003; 81015; 82728; 82803; 83036; 83540; 83550; 83690; 83735; 84100; 84484; 85025; 85610; 85730; 86704; 86706; 86708; 86803; 87340; 93005; 93010; 97116-GP; 97161-GP; 99282-25; J0885; J1644

== ENCOUNTER 2017-05-29 12:53 | Observation (INO) | payer OTHER, BC ==
[2017-05-29 13:16] VITALS: BMI 28.3
[2017-05-29 15:25] LABS: EOSINOPHIL 2.7 % (0-4.5); MCH 28.7 pg (25.7-33.7); MCHC 32.2 g/dl (32.0-36.0); MEAN CELL VOLUME 89.1 fl (80-96); MEAN PLT VOLUME 9.2 fl (7.5-11.1); NEUTROPHILS 60.2 % (42.8-82.8); PLATELET COUNT 250 K/MM3 (134-434); RDW 17.5 % (11.6-15.6); WHITE BLOOD COUNT 7.1 K/mm3 (4.0-10.0)
[2017-05-29 15:48] LABS: ALBUMIN 3.2 g/dl (3.4-5.0); ANION GAP 10 (8-16); CALCIUM 8.7 mg/dL (8.5-10.1); CO2 26 mmol/L (21-32); GLUCOSE,RANDOM 115 mg/dL (74-106); SGPT/ALT 26 U/L (12-78)
[2017-05-29 15:53] LABS: INR 1.04 (0.82-1.09); PROTHROMBIN TIME (PATIENT) 11.7 SEC (9.98-11.88)
--- NOTE | 2017-05-29 15:53 | PDOC ---
History of Present Illness - History of Present Illness Initial Comments: 05/29/17 15:51 "The patient is a 72 year old female, with a significant past medical history of ESRD(on dialysis ,,S), diabetes, hypertension, hyperlipidemia, BKA of right lower extremity, left toe amputations, who presents to the emergency department sent by Dr. Weldon, for evaluation of clot in right arm fistula. Pt states that she was unable to get HD on Saturday due to difficulty accessing her AVF. Pt was told by Dr. Weldon that she may have a partial occlusion in the shunt in her right arm. The patient reports her last dialysis was 05/25/17. She denies any chest pain, shortness of breath, diaphoresis, palpitations, numbness, or tingling. She denies any recent fever or chills. She denies any abdominal pain, nausea, or vomiting. Allergies: Levofloxacin Past Surgical History: Right arm fistula, BKA RLE Social History: Former smoker PCP: Dr. Melgoza Vascular Surgeon: Dr. Weldon Corrugated Fastener Driver: Dr. Patricia Mcfarlane " <Bradly Sofia - Last Filed: 05/29/17 17:59> <Lucien Longoria - Last Filed: 05/29/17 18:14> - General Chief Complaint: Dialysis Shunt Problem Stated Complaint: STENT MALFUNCTION Time Seen by Provider: 05/29/17 13:59 Past History - Past Medical History Diabetes: Yes Dialysis: Yes ( SAT) HTN: Yes Hypercholesterolemia: Yes - Surgical History Cholecystectomy: Yes - Suicide/Smoking/Psychosocial Hx Smoking Status: No Smoking History: Never smoked Years of Tobacco Use: 30 Have you smoked in the past 12 months: No Number of Cigarettes Smoked Daily: 0 If you are a former smoker, when did you quit?: 30 yrs ago Hx Alcohol Use: No Drug/Substance Use Hx: No Substance Use Type: None <Bradly Sofia - Last Filed: 05/29/17 17:59> <Lucien Longoria - Last Filed: 05/29/17 18:14> - Past Medical History Allergies/Adverse Reactions: Allergies Allergy/AdvReac Type Severity Reaction Status Date / Time adhesive tape Allergy Intermediate Itching Verified 05/29/17 17:41 levofloxacin [From Levaquin] Allergy Unknown Verified 05/29/17 17:41 Home Medications: Ambulatory Orders Atorvastatin Ca [Lipitor] 10 mg PO HS #0 tablet 08/26/12 Multivitamins Ther W-Minerals [Theragran-M -] 1 each PO DAILY #0 tablet Aspirin [ASA -] 81 mg PO DAILY #0 tab.chew 03/27/13 Acetaminophen [Tylenol] 325 mg PO ASDIR 05/07/17 Amlodipine Besylate [Norvasc -] 5 mg PO DAILY 05/07/17 Carvedilol [Coreg -] 6.25 mg PO BID 05/07/17 Docusate Sodium [Dulcolax Stool Softener] 100 mg PO ASDIR 05/07/17 Ondansetron HCl [Zofran] 8 mg PO ASDIR 05/07/17 Pantoprazole Sodium [Protonix] 40 mg PO BID 05/07/17 Sevelamer Carbonate [Renvela] 2,400 mg PO CM 05/07/17 Insulin (Levemir) [Levemir Vial] 15 units SQ AM #100 ml MDD 1 05/10/17 Review of Systems - Review of Systems Comments:: 05/29/17 15:53 "GENERAL/CONSTITUTIONAL: No fever or chills. No weakness. HEAD, EYES, EARS, NOSE AND THROAT: No change in vision. No ear pain or discharge. No sore throat. CARDIOVASCULAR: No chest pain or shortness of breath. RESPIRATORY: No cough, wheezing, or hemoptysis. GASTROINTESTINAL: No nausea, vomiting, diarrhea or constipation. GENITOURINARY: No dysuria, frequency, or change in urination. MUSCULOSKELETAL: No joint or muscle swelling or pain. No neck or back pain. SKIN: No rash NEUROLOGIC: No headache, vertigo, loss of consciousness, or change in strength/ sensation. ENDOCRINE: No increased thirst. No abnormal weight change. HEMATOLOGIC/LYMPHATIC: Yes clotted right arm fistula. No anemia, easy bleeding. ALLERGIC/IMMUNOLOGIC: No hives or skin allergy. " <Bradly Sofia - Last Filed: 05/29/17 17:59> *Physical Exam - Vital Signs Last Vital Signs Temp Pulse Resp BP Pulse Ox 98.5 F 77 20 182/83 99 05/29/17 13:12 05/29/17 13:12 05/29/17 13:12 05/29/17 13:12 05/29/17 13:12 - Physical Exam Comments: 05/29/17 15:53 "GENERAL: Awake, alert, and fully oriented, in no acute distress HEAD: No signs of trauma EYES: PERRLA, EOMI, sclera anicteric, conjunctiva clear ENT: Auricles normal inspection, hearing grossly normal, nares patent, oropharynx clear without exudates. Moist mucosa NECK: Nontender, no stepoffs, Normal ROM, supple, no lymphadenopathy, JVD, or masses LUNGS: Breath sounds equal, clear to auscultation bilaterally. No wheezes, and no crackles HEART: Regular rate and rhythm, normal S1 and S2, no murmurs, rubs or gallops ABDOMEN: Soft, nontender, normoactive bowel sounds. No guarding, no rebound. No masses EXTREMITIES: R AVF with palpable thrill, distal pulses intact, Normal range of motion, no edema. No clubbing or cyanosis. No cords, erythema, or tenderness NEUROLOGICAL: Cranial nerves II through XII intact. 5/5 strength and sensation in all extremities, Normal speech, normal gait SKIN: Warm, Dry, normal turgor, no rashes or lesions noted. " <Ou,Bradly - Last Filed: 05/29/17 17:59> - Vital Signs Last Vital Signs Temp Pulse Resp BP Pulse Ox 98.5 F 77 20 182/83 99 05/29/17 13:12 05/29/17 13:12 05/29/17 13:12 05/29/17 13:12 05/29/17 13:12 <Lucien Longoria - Last Filed: 05/29/17 18:14> Heart Score/ECG Review - ECG Impressions Comment:: 05/29/17 15:58 NSR, no PORSCHE/STDS, no TWIs, no peaked T waves, intervals wnl, axis wnl <Ou,Bradly - Last Filed: 05/29/17 17:59> ED Treatment Course - LABORATORY CBC & Chemistry Diagram: 05/29/17 15:03 05/29/17 15:03 - RADIOLOGY Radiology Studies Ordered: Category Date Time Status CHEST X-RAY PORTABLE* [RAD] Stat Radiology 05/29/17 14:25 Taken DUPLEX ART. UPPER COMPL US [US] Stat Ultrasound 05/29/17 15:15 Ordered <Ou,Bradly - Last Filed: 05/29/17 17:59> - LABORATORY CBC & Chemistry Diagram: 05/29/17 15:03 05/29/17 15:03 - ADDITIONAL ORDERS Additional order review: Laboratory Results 05/29/17 05/29/17 15:03 15:03 PT with INR 11.70 INR 1.04 PTT (Actin FS) 22.2 L D Sodium 139 Potassium 5.6 H D Chloride 103 Carbon Dioxide 26 Anion Gap 10 BUN 79 H D Creatinine 10.3 H* D Creat Clearance w eGFR 3.72 Random Glucose 115 H Calcium 8.7 Total Bilirubin 0.4 AST 32 D ALT 26 D Alkaline Phosphatase 401 H Total Protein 7.2 Albumin 3.2 L 05/29/17 15:03 RBC 3.72 MCV 89.1 MCHC 32.2 RDW 17.5 H D MPV 9.2 D Neutrophils % 60.2 Lymphocytes % 28.1 Monocytes % 8.0 Eosinophils % 2.7 Basophils % 1.0 - RADIOLOGY Radiograph Interpretation: 05/29/17 18:11 EXAM: RUE arterial doppler US INTERPRETED BY: Dr. Alvares REVIEWED BY: Dr. Sofia IMPRESSION: Occluded outflow vein distally. <Lucien Longoria - Last Filed: 05/29/17 18:14> Medical Decision Making - Medical Decision Making 05/29/17 15:58 72 F with ESRD on HD T// presenting with possible AVF malfunction. Pt with no acute complaints. - Labs - US of AVF - Vascular consult 05/29/17 16:48 Surgical team at bedside prepping for Shiley catheter. Spoke with Dr. 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 Pt to be admitted to hospitalist. 05/29/17 17:59 Case discussed in detail with admitting physician including history, physical exam and ancillary studies. Admitting physician has assumed care for the patient and will follow all pending diagnostics and complete the evaluation and treatment. <Bradly Sofia - Last Filed: 05/29/17 17:59> - Medical Decision Making 05/29/17 16:09 First call placed to Dr. Weldon at 16:09. Awaiting call back. First call placed to Dr. Mcfarlane at 16:40. Case discussed with Dr. Jameson at this time. <Lucien Longoria - Last Filed: 05/29/17 18:14> *DC/Admit/Observation/Transfer - Discharge Dispostion Admit: Yes - Attestations Physician Attestion: 05/29/17 18:00 I, Dr. Bradly Sofia MD, attest that this document has been prepared under my direction and personally reviewed by me in its entirety. I further attest, that it accurately reflects all work, treatment, procedures and medical decision -making performed by me. <Bradly Sofia - Last Filed: 05/29/17 17:59> <Lucien Longoria - Last Filed: 05/29/17 18:14> Diagnosis at time of Disposition: AV fistula thrombosis - Referrals Referrals: Deep Melgoza MD [Primary Care Provider] -
[2017-05-29 15:54] LABS: ALK PHOS 401 U/L (45-117); BILIRUBIN,TOTAL 0.4 mg/dL (0.2-1.0); TOT PROT 7.2 g/dl (6.4-8.2)
[2017-05-29 15:55] LABS: ACTIVATED PTT 22.2 SECONDS (26.9-34.4)
[2017-05-29 15:56] LABS: SGOT/AST 32 U/L (15-37)
[2017-05-29 15:57] LABS: CREATININE 10.3 mg/dL (0.55-1.02)
[2017-05-29] MEDS ORDERED: LIDOCAINE HCL 1%, 10 MG/ML (20ML VIAL) ONE (17:37)
--- NOTE | 2017-05-29 19:15 | PN ---
Progress Note (short form) - Note Progress Note: vascular surgery: attempted b/l groin femoral catheter placement, unable to pass dilators. Used US guided for left, good blood flow and wire passing but unable to dilate vessels. S/w with Elsa Merritt and the medical team. Kayexeate as needed. Pt comfortable without SOB. Will attempt cath placement in IR or by Dr. Weldon in the am.
--- NOTE | 2017-05-29 19:17 | HP ---
CHIEF COMPLAINT: "My shunt is clogged." PCP: Abad HISTORY OF PRESENT ILLNESS: This is a 72yo woman with PMH HTN, DM, ESRD on HD, choleycystectomy, R BKA and L TMA who was sent to ED by her vascular surgeon for clogged AV fistula. She denies any fevers, chills, nausea, chest pain, SOB, dizziness. Pt reports ocasional diarrhea over past 2 days. ER course was notable for: (1) Cr- 10.3 (2) K-5.6 Recent Travel: denies PAST MEDICAL HISTORY: see HPI PAST SURGICAL HISTORY: see HPI Social History: Smoking: denies Alcohol: denies Drugs: denies Family History: Allergies adhesive tape Allergy (Intermediate, Verified 05/29/17 17:41) Itching levofloxacin [From Levaquin] Allergy (Unknown, Verified 05/29/17 17:41) HOME MEDICATIONS: Home Medications Medication Instructions Recorded Atorvastatin Ca [Lipitor] 10 mg PO HS #0 tablet 08/26/12 Multivitamins Ther W-Minerals 1 each PO DAILY #0 tablet 08/26/12 [Theragran-M -] Aspirin [ASA -] 81 mg PO DAILY #0 tab.chew 03/27/13 Acetaminophen [Tylenol] 325 mg PO ASDIR 05/07/17 Amlodipine Besylate [Norvasc -] 5 mg PO DAILY 05/07/17 Carvedilol [Coreg -] 6.25 mg PO BID 05/07/17 Docusate Sodium [Dulcolax Stool 100 mg PO ASDIR 05/07/17 Softener] Ondansetron HCl [Zofran] 8 mg PO ASDIR 05/07/17 Pantoprazole Sodium [Protonix] 40 mg PO BID 05/07/17 Sevelamer Carbonate [Renvela] 2,400 mg PO CM 05/07/17 Insulin (Levemir) [Levemir Vial] 15 units SQ AM #100 ml MDD 1 05/10/17 REVIEW OF SYSTEMS CONSTITUTIONAL: Absent: fever, chills, diaphoresis, generalized weakness, malaise, loss of appetite, weight change HEENT: Absent: rhinorrhea, nasal congestion, throat pain, throat swelling, difficulty swallowing, mouth swelling, ear pain, eye pain, visual changes CARDIOVASCULAR: Absent: chest pain, syncope, palpitations, irregular heart rate, lightheadedness , peripheral edema RESPIRATORY: Absent: cough, shortness of breath, dyspnea with exertion, orthopnea, wheezing, stridor, hemoptysis GASTROINTESTINAL: Present- diarrhea Absent: abdominal pain, abdominal distension, nausea, vomiting, constipation, melena, hematochezia GENITOURINARY: Absent: dysuria, frequency, urgency, hesitancy, hematuria, flank pain, genital pain MUSCULOSKELETAL: Absent: myalgia, arthralgia, joint swelling, back pain, neck pain SKIN: Absent: rash, itching, pallor HEMATOLOGIC/IMMUNOLOGIC: Absent: easy bleeding, easy bruising, lymphadenopathy, frequent infections ENDOCRINE: Absent: unexplained weight gain, unexplained weight loss, heat intolerance, cold intolerance NEUROLOGIC: Absent: headache, focal weakness or paresthesias, dizziness, unsteady gait, seizure, mental status changes, bladder or bowel incontinence PSYCHIATRIC: Absent: anxiety, depression, suicidal or homicidal ideation, hallucinations. PHYSICAL EXAMINATION GENERAL: Awake, alert, and fully oriented, in no acute distress. HEAD: Normal with no signs of trauma. EYES: Pupils equal, round and reactive to light, extraocular movements intact, sclera anicteric, conjunctiva clear. No lid lag. EARS, NOSE, THROAT: Ears normal, nares patent, oropharynx clear without exudates. Moist mucous membranes. NECK: Normal range of motion, supple without lymphadenopathy, JVD, or masses. LUNGS: Breath sounds equal, clear to auscultation bilaterally. No wheezes, and no crackles. No accessory muscle use. HEART: Regular rate and rhythm, normal S1 and S2 without murmur, rub or gallop. ABDOMEN: Soft, nontender, not distended, normoactive bowel sounds, no guarding, no rebound, no masses. No hepatomegaly or splenomegaly. MUSCULOSKELETAL: Normal range of motion at all joints. No bony deformities or tenderness. No CVA tenderness. UPPER EXTREMITIES: 2+ pulses, warm, well-perfused. No cyanosis. No clubbing. No peripheral edema. RUE AV fistula with (+) bruit (+) thrill LOWER EXTREMITIES: 2+ pulses, warm, well-perfused. No calf tenderness. No peripheral edema. R BKA. L TMA. NEUROLOGICAL: Cranial nerves II-XII intact. Normal speech. Normal gait. PSYCHIATRIC: Cooperative. Good eye contact. Appropriate mood and affect. SKIN: Warm, dry, normal turgor, no rashes or lesions noted, normal capillary refill. ASSESSMENT/PLAN: A: 72yo woman with ESRD needs dialysis access and HD treatment. P: ESRD - IR for dialysis access - Renal consult following - Vascular following for AV shunt evaluation HTN - elevated - continue Norvasc - continue coreg DM - FS qACHS - home Levemir F/E/N - renal diet - replete prn PPX - OOB Dispo- requires observation of acute medical conditions Visit type - Emergency Visit Emergency Visit: Yes ED Registration Date: 05/29/17 Care time: The patient presented to the Emergency Department on the above date and was hospitalized for further evaluation of their emergent condition. - New Patient This patient is new to me today: Yes Date on this admission: 05/29/17 - Critical Care Critical Care patient: No
[2017-05-29] MEDS ORDERED: ACETAMINOPHEN 325 MG TABLET (FP) PO SCH (19:30)
[2017-05-29] MEDS ORDERED: ONDANSETRON 8 MG TABLET (FP) PO SCH (19:30)
--- NOTE | 2017-05-29 20:45 | CON.NEP ---
Consult Consult Specialty:: Nephrology Referred by:: Medicine Reason for Consultation:: End stage renal disease - History of Present Illness History of Present Illness: 72 year old female with history ot type 2 diabetes mellitus, hypertension and end stage renal disease admitted with hemodialysis access malfunction Patient denies shortness of breath , chest pain , nausea or vomiting. She received her last dialysis last Saturday. Patient was seen today by vascular surgery . 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: Peripheral Neuropathy Cardio/Vascular: Yes: HTN Renal/: Yes: Renal Failure, Hemodialysis Heme/Onc: Yes: Anemia Endocrine: Yes: Diabetes Mellitus - Past Surgical History Past Surgical History: Yes: AV Fistula/Graft (RT RT BKA AND LEFT TMA) - Alcohol/Substance Use Hx Alcohol Use: No - Smoking History Smoking history: Never smoked Have you smoked in the past 12 months: No Aproximately how many cigarettes per day: 0 If you are a former smoker, when did you quit?: 30 yrs ago - Social History Usual Living Arrangement: Other (WILL LIVE NOW IN [place] WITH SON) Home Medications - Allergies Allergies/Adverse Reactions: Allergies Allergy/AdvReac Type Severity Reaction Status Date / Time adhesive tape Allergy Intermediate Itching Verified 05/29/17 17:41 levofloxacin [From Levaquin] Allergy Unknown Verified 05/29/17 17:41 - Home Medications Home Medications: Ambulatory Orders Atorvastatin Ca [Lipitor] 10 mg PO HS #0 tablet 08/26/12 Multivitamins Ther W-Minerals [Theragran-M -] 1 each PO DAILY #0 tablet Aspirin [ASA -] 81 mg PO DAILY #0 tab.chew 03/27/13 Acetaminophen [Tylenol] 325 mg PO ASDIR 05/07/17 Amlodipine Besylate [Norvasc -] 5 mg PO DAILY 05/07/17 Carvedilol [Coreg -] 6.25 mg PO BID 05/07/17 Docusate Sodium [Dulcolax Stool Softener] 100 mg PO ASDIR 05/07/17 Ondansetron HCl [Zofran] 8 mg PO ASDIR 05/07/17 Pantoprazole Sodium [Protonix] 40 mg PO BID 05/07/17 Sevelamer Carbonate [Renvela] 2,400 mg PO CM 05/07/17 Insulin (Levemir) [Levemir Vial] 15 units SQ AM #100 ml MDD 1 05/10/17 Family Disease History - Family Disease History Family Disease History: Diabetes: Mother Review of Systems - Review of Systems Constitutional: reports: No Symptoms Cardiovascular: reports: No Symptoms Respiratory: reports: No Symptoms Gastrointestinal: reports: No Symptoms Nephrology Consult - Height Height: 5 ft 3 in - Weight Weight: 160 lb - BMI Body Mass Index (BMI): 28.3 - Lab Results CBC,BMP: CBCD WBC 7.1 K/mm3 (4.0-10.0) D 05/29/17 15:03 RBC 3.72 M/mm3 (3.60-5.2) 05/29/17 15:03 Hgb 10.7 GM/dL (10.7-15.3) 05/29/17 15:03 Hct 33.1 % (32.4-45.2) 05/29/17 15:03 MCV 89.1 fl (80-96) 05/29/17 15:03 MCHC 32.2 g/dl (32.0-36.0) 05/29/17 15:03 RDW 17.5 % (11.6-15.6) H D 05/29/17 15:03 Plt Count 250 K/MM3 (134-434) D 05/29/17 15:03 MPV 9.2 fl (7.5-11.1) D 05/29/17 15:03 CMP Sodium 139 mmol/L (136-145) 05/29/17 15:03 Potassium 5.6 mmol/L (3.5-5.1) H D 05/29/17 15:03 Chloride 103 mmol/L (98-107) 05/29/17 15:03 Carbon Dioxide 26 mmol/L (21-32) 05/29/17 15:03 Anion Gap 10 (8-16) 05/29/17 15:03 BUN 79 mg/dL (7-18) H D 05/29/17 15:03 Creatinine 10.3 mg/dL (0.55-1.02) H* D 05/29/17 15:03 Creat Clearance w eGFR 3.72 (>60) 05/29/17 15:03 Calcium 8.7 mg/dL (8.5-10.1) 05/29/17 15:03 Total Bilirubin 0.4 mg/dL (0.2-1.0) 05/29/17 15:03 AST 32 U/L (15-37) D 05/29/17 15:03 ALT 26 U/L (12-78) D 05/29/17 15:03 Alkaline Phosphatase 401 U/L (45-117) H 05/29/17 15:03 Total Protein 7.2 g/dl (6.4-8.2) 05/29/17 15:03 Albumin 3.2 g/dl (3.4-5.0) L 05/29/17 15:03 Anion Gap: Anion Gap Anion Gap 10 (8-16) 05/29/17 15:03 - Physical Examination Vital Signs: Vital Signs Temperature 98.5 F 05/29/17 13:12 Pulse Rate 77 05/29/17 13:12 Respiratory Rate 20 05/29/17 13:12 Blood Pressure 182/83 05/29/17 13:12 O2 Sat by Pulse Oximetry (%) 99 05/29/17 13:12 Constitutional: Yes: Well Nourished, No Distress, Calm Eyes: Yes: WNL HENT: Yes: WNL Neck: Yes: Supple Cardiovascular: Yes: Regular Rate and Rhythm Respiratory: Yes: WNL, CTA Bilaterally Gastrointestinal: Yes: Normal Bowel Sounds, Soft, Abdomen, Obese Access for Hemodialysis: AV Fistula (positive bruit right arm AV fistula) Extremities: Yes: Other (s/p right BKA and left TMA) Neurological: Yes: Alert, Oriented Psychiatric: Yes: WNL, Alert, Oriented Problem List - Problems (1) ESRD (end stage renal disease) on dialysis Assessment/Plan: Elderly female with end stage renal disease presenting with access malfunction. She is tentatively scheduled for hemodialysis in a.m. Vascular surgery follow up in a.m. Probably prudent to attempt using the fistula for dialysis in a.m before resulting to hemocath. Will follow. Code(s): N18.6 - END STAGE RENAL DISEASE Z99.2 - DEPENDENCE ON RENAL DIALYSIS (2) Hyperkalemia Assessment/Plan: Patient is for hemodialysis in a.m. Code(s): E87.5 - HYPERKALEMIA
[2017-05-29] MEDS ORDERED: ACETAMINOPHEN 325 MG TABLET (FP) PO PRN (20:59)
[2017-05-29] MEDS ORDERED: ONDANSETRON 4 MG TABLET PO PRN (20:59)
[2017-05-29] MEDS ORDERED: INSULIN REGULAR HUMAN 100 UNITS/ML *VIAL IVPUSH ONE (21:41)
[2017-05-29] MEDS ORDERED: DEXTROSE 50%-WATER - 25 GM/50 ML VIAL IVPUSH ONE (21:42)
[2017-05-29] MEDS ORDERED: CALCIUM GLUCONATE 10% - 1,000 MG/10 ML VIAL IVPUSH ONE (21:58)
[2017-05-29] MEDS: SEVELAMER CARBONATE 800 MG TAB (FP) PO SCH (21:58)
--- NOTE | 2017-05-29 21:58 | CONSULT ---
Consult - History of Present Illness History of Present Illness: 72 year old woman with ESRD on HD with right arm fistula which has grown aneurysmal. Today she was unable to be dialyzed due to occlusion of the fistula. She has no pain. 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 Cardio/Vascular: Yes: HTN Renal/: Yes: Renal Failure, Hemodialysis Endocrine: Yes: Diabetes Mellitus - Past Surgical History Past Surgical History: Yes: AV Fistula/Graft (RT RT BKA AND LEFT TMA) - Alcohol/Substance Use Hx Alcohol Use: No - Smoking History Smoking history: Never smoked Have you smoked in the past 12 months: No Aproximately how many cigarettes per day: 0 If you are a former smoker, when did you quit?: 30 yrs ago - Social History Usual Living Arrangement: Other (WILL LIVE NOW IN [place] WITH SON) Home Medications - Allergies Allergies/Adverse Reactions: Allergies Allergy/AdvReac Type Severity Reaction Status Date / Time adhesive tape Allergy Intermediate Itching Verified 05/29/17 17:41 levofloxacin [From Levaquin] Allergy Unknown Verified 05/29/17 17:41 - Home Medications Home Medications: Ambulatory Orders RX: Atorvastatin Ca [Lipitor] 10 mg PO HS #0 tablet 08/26/12 RX: Multivitamins Ther W-Minerals [Theragran-M -] 1 each PO DAILY #0 tablet RX: Aspirin [ASA -] 81 mg PO DAILY #0 tab.chew 03/27/13 Acetaminophen [Tylenol] 325 mg PO ASDIR 05/07/17 Ondansetron HCl [Zofran] 8 mg PO ASDIR 05/07/17 RX: Amlodipine Besylate [Norvasc -] 5 mg PO DAILY 05/07/17 RX: Carvedilol [Coreg -] 6.25 mg PO BID 05/07/17 RX: Docusate Sodium [Dulcolax Stool Softener] 100 mg PO ASDIR 05/07/17 RX: Pantoprazole Sodium [Protonix] 40 mg PO BID 05/07/17 Sevelamer Carbonate [Renvela] 2,400 mg PO CM 05/07/17 RX: Insulin (Levemir) [Levemir Vial] 15 units SQ AM #100 ml MDD 1 05/10/17 Family Disease History - Family Disease History Family Disease History: Diabetes: Mother Physical Exam Vital Signs: Vital Signs Temperature 98.5 F 05/29/17 13:12 Pulse Rate 81 05/29/17 20:57 Respiratory Rate 18 05/29/17 20:57 Blood Pressure 186/87 05/29/17 20:57 O2 Sat by Pulse Oximetry (%) 99 05/29/17 20:57 Extremities: Yes: Other (Large firm fistula in right upperarm. Distal pulse in fistula, no thrill.) Imaging - Results Ultrasound: Image Reviewed (Proximal occlusion of cephalic vein fistula. Dilated segments with large amount of thrombus.) Problem List - Problems (1) AV fistula thrombosis Assessment/Plan: Large fistula with large amount of thrombus in vein. Unclear if fistula is salvageable due to dilatation. Patient will need temporary dialysis access before trying to reopen fistula. Code(s): T82.868A - THROMBOSIS DUE TO VASCULAR PROSTH DEV/GRFT, INIT Qualifiers: Encounter type: initial encounter Qualified Code(s): T82.868A - Thrombosis due to vascular prosthetic devices, implants and grafts, initial encounter; T82.868A - Thrombosis due to vascular prosthetic devices, implants and grafts, initial encounter; T82.868A - Thrombosis due to vascular prosthetic devices, implants and grafts, initial encounter
[2017-05-29] MEDS: HEPARIN NA (PORCINE) 5,000 UNITS/ML 1ML VIAL SQ SCH (21:59)
[2017-05-29] MEDS: CARVEDILOL 6.25 MG TABLET (FP) PO SCH (21:59)
[2017-05-29] MEDS: PANTOPRAZOLE 40 MG TABLET (FP) PO SCH (22:00)
[2017-05-29] MEDS: ATORVASTATIN CA 10 MG TABLET (FP) PO SCH (22:00)
--- NOTE | 2017-05-29 22:04 | HOSP ---
Subjective - Review of Symptoms Events since last encounter: Hospitalist Encounter Notified by the RN regarding patient's K 5.6 Ordered Hyperkalemia Protocol- D 50 IV, Regular Insulin IV, Calcium Gluconate IV. EKG reviewed- NSR 76bpm, septal infarct, age undetermined, possible lateral infarct age undetermined. No peaked T waves. Patient is scheduled for HD and repeat am labs. Arrived to bedside to assess the patient, who is AAOx3, reports diarrhea but no other complaints. Will continue to monitor. Physical Examination Vital Signs: Vital Signs Temperature 98.5 F 05/29/17 13:12 Pulse Rate 81 05/29/17 20:57 Respiratory Rate 18 05/29/17 20:57 Blood Pressure 186/87 05/29/17 20:57 O2 Sat by Pulse Oximetry (%) 99 05/29/17 20:57 Constitutional: Yes: Well Nourished, No Distress, Calm Eyes: Yes: WNL, Conjunctiva Clear, PERRL HENT: Yes: WNL, Atraumatic, Normocephalic Neck: Yes: WNL, Supple, Trachea Midline Cardiovascular: Yes: WNL, Regular Rate and Rhythm, S1, S2 Respiratory: Yes: WNL, Regular, CTA Bilaterally Neurological: Yes: WNL, Alert, Oriented, Cran Nerves II-XII Intact Psychiatric: Yes: WNL, Alert, Oriented Labs: Laboratory Results - last 24 hr 05/29/17 05/29/17 05/29/17 14:25 15:03 15:03 WBC 7.1 D RBC 3.72 Hgb 10.7 Hct 33.1 MCV 89.1 MCH 28.7 MCHC 32.2 RDW 17.5 H D Plt Count 250 D MPV 9.2 D Neutrophils % 60.2 Lymphocytes % 28.1 Monocytes % 8.0 Eosinophils % 2.7 Basophils % 1.0 PT with INR 11.70 INR 1.04 PTT (Actin FS) 22.2 L D Sodium Potassium Chloride Carbon Dioxide Anion Gap BUN Creatinine Creat Clearance w eGFR POC Glucometer Random Glucose Calcium Total Bilirubin AST ALT Alkaline Phosphatase Total Protein Albumin Blood Type O POSITIVE Antibody Screen Negative 05/29/17 05/29/17 05/30/17 15:03 22:02 06:42 WBC RBC Hgb Hct MCV MCH MCHC RDW Plt Count MPV Neutrophils % Lymphocytes % Monocytes % Eosinophils % Basophils % PT with INR INR PTT (Actin FS) Sodium 139 Potassium 5.6 H D Chloride 103 Carbon Dioxide 26 Anion Gap 10 BUN 79 H D Creatinine 10.3 H* D Creat Clearance w eGFR 3.72 POC Glucometer 141 115 Random Glucose 115 H Calcium 8.7 Total Bilirubin 0.4 AST 32 D ALT 26 D Alkaline Phosphatase 401 H Total Protein 7.2 Albumin 3.2 L Blood Type Antibody Screen
[2017-05-30] MEDS ORDERED: DEXTROSE 50%-WATER - 25 GM/50 ML VIAL ONE (00:29)
[2017-05-30] MEDS: INSULIN DETEMIR 100 UNITS/ML MDV SQ SCH (06:46)
[2017-05-30 07:37] LABS: BASOPHIL 1.2 % (0-2.0); EOSINOPHIL 3.5 % (0-4.5); MCH 28.2 pg (25.7-33.7); MEAN CELL VOLUME 88.1 fl (80-96); MEAN PLT VOLUME 8.3 fl (7.5-11.1); NEUTROPHILS 52.4 % (42.8-82.8); PLATELET COUNT 223 K/MM3 (134-434); RDW 17.3 % (11.6-15.6); WHITE BLOOD COUNT 6.9 K/mm3 (4.0-10.0)
[2017-05-30] MEDS ORDERED: EPOETIN ALFA 10,000 UNIT/1 ML VIAL IVPUSH ONE (08:00)
[2017-05-30 08:10] LABS: ANION GAP 12 (8-16); CALCIUM 8.4 mg/dL (8.5-10.1); CO2 24 mmol/L (21-32); GLUCOSE,RANDOM 85 mg/dL (74-106); MAGNESIUM 2.7 mg/dL (1.8-2.4); PHOSPHOROUS 5.4 mg/dL (2.5-4.9)
[2017-05-30 08:33] LABS: CREATININE 11.1 mg/dL (0.55-1.02)
[2017-05-30] MEDS: CARVEDILOL 6.25 MG TABLET (FP) PO SCH ×2 (09:29→22:42)
[2017-05-30] MEDS: amLODIPine BESYLATE 5 MG TABLET (FP) PO SCH (09:29)
[2017-05-30] MEDS: HEPARIN NA (PORCINE) 5,000 UNITS/ML 1ML VIAL SQ SCH ×2 (10:00→22:42)
[2017-05-30] MEDS ORDERED: HEPARIN NA (PORCINE) 5,000 UNITS/ML 1ML VIAL IV ONE (11:00)
[2017-05-30] MEDS: SEVELAMER CARBONATE 800 MG TAB (FP) PO SCH ×3 (12:00→19:27)
--- NOTE | 2017-05-30 13:03 | EKG ---
Test Reason : Blood Pressure : / mmHG Vent. Rate : 076 BPM Atrial Rate : 076 BPM P-R Int : 160 ms QRS Dur : 088 ms QT Int : 388 ms P-R-T Axes : 041 -28 019 degrees QTc Int : 436 ms NORMAL SINUS RHYTHM MINIMAL VOLTAGE CRITERIA FOR LVH, MAY BE NORMAL VARIANT SEPTAL INFARCT (CITED ON OR BEFORE 07-MAY-2017) POSSIBLE LATERAL INFARCT (CITED ON OR BEFORE 24-MAR-2013) ABNORMAL ECG WHEN COMPARED WITH ECG OF 07-MAY-2017 10:42, QUESTIONABLE CHANGE IN INITIAL FORCES OF SEPTAL LEADS QUESTIONABLE CHANGE IN INITIAL FORCES OF LATERAL LEADS Confirmed by LYLE WILLIAMSON MD ([id number]) on 05/30/2017 1:03:14 PM Referred By: Confirmed By:LYLE WILLIAMSON MD
[2017-05-30] MEDS: PANTOPRAZOLE 40 MG TABLET (FP) PO SCH ×2 (13:51→22:42)
[2017-05-30] MEDS: MULTIVITAMINS THER W-MINERALS COMBO TABLET (FP) PO SCH (13:51)
[2017-05-30] MEDS: ASPIRIN 81 MG CHEWABLE TABLETS PO SCH (13:51)
--- NOTE | 2017-05-30 17:36 | PN ---
Progress Note (short form) - Note Progress Note: 72 year old female with end stage renal disease admitted with malfunctioning right arm AV fistula secondary to proximal cephalic occlusion. Patient is seen today undergoing hemodialysis via a temporary right IJ hemodialysis catheter. She has no new complaint. Vitals: BP Vital Signs Period Temp Pulse Resp BP Sys/Carrillo Pulse Ox Last 24 Hr 97.1 F-98.9 F 72-82 18-22 114-191/60-89 97-100 Lungs; clear to auscultation Heart: S1 S2 regular Abd: Full, soft, non-tender, BS normal Ext: s/p right BKA and left TMA Neuro: Awake and alert. Labs: CBCD WBC 6.9 K/mm3 (4.0-10.0) 05/30/17 06:50 RBC 3.28 M/mm3 (3.60-5.2) L 05/30/17 06:50 Hgb 9.3 GM/dL (10.7-15.3) L D 05/30/17 06:50 Hct 28.9 % (32.4-45.2) L 05/30/17 06:50 MCV 88.1 fl (80-96) 05/30/17 06:50 MCHC 32.0 g/dl (32.0-36.0) 05/30/17 06:50 RDW 17.3 % (11.6-15.6) H 05/30/17 06:50 Plt Count 223 K/MM3 (134-434) 05/30/17 06:50 MPV 8.3 fl (7.5-11.1) 05/30/17 06:50 CMP Sodium 140 mmol/L (136-145) 05/30/17 06:50 Potassium 5.1 mmol/L (3.5-5.1) 05/30/17 06:50 Chloride 104 mmol/L (98-107) 05/30/17 06:50 Carbon Dioxide 24 mmol/L (21-32) 05/30/17 06:50 Anion Gap 12 (8-16) 05/30/17 06:50 BUN 90 mg/dL (7-18) H 05/30/17 06:50 Creatinine 11.1 mg/dL (0.55-1.02) H* 05/30/17 06:50 Creat Clearance w eGFR 3.72 (>60) 05/29/17 15:03 Calcium 8.4 mg/dL (8.5-10.1) L 05/30/17 06:50 Total Bilirubin 0.4 mg/dL (0.2-1.0) 05/29/17 15:03 AST 32 U/L (15-37) D 05/29/17 15:03 ALT 26 U/L (12-78) D 05/29/17 15:03 Alkaline Phosphatase 401 U/L (45-117) H 05/29/17 15:03 Total Protein 7.2 g/dl (6.4-8.2) 05/29/17 15:03 Albumin 3.2 g/dl (3.4-5.0) L 05/29/17 15:03 A/P: Elderly female with ESRD admitted with av Fistular thrombosis and aneurysm. Patient is tentatively for repair of access in a.m Hemodialysis today as per dialysis orders. Will follow. Problem List - Problems (1) ESRD (end stage renal disease) on dialysis Code(s): N18.6 - END STAGE RENAL DISEASE Z99.2 - DEPENDENCE ON RENAL DIALYSIS (2) Hyperkalemia Code(s): E87.5 - HYPERKALEMIA
--- NOTE | 2017-05-30 17:46 | PN ---
Physical Exam: SUBJECTIVE: Patient seen and examined at the bedside OBJECTIVE: BGMs low at 58, pt reports intermittent nausea Vital Signs Period Temp Pulse Resp BP Sys/Carrillo Pulse Ox Last 24 Hr 97.1 F-98.9 F 72-82 18-22 114-191/60-89 97-100 GENERAL: Awake, alert, and fully oriented, in no acute distress. HEAD: Normal with no signs of trauma. EYES: Pupils equal, round and reactive to light, extraocular movements intact, sclera anicteric, conjunctiva clear. No lid lag. EARS, NOSE, THROAT: Ears normal, nares patent, oropharynx clear without exudates. Moist mucous membranes. NECK: Normal range of motion, supple without lymphadenopathy, JVD, or masses. LUNGS: Breath sounds equal, clear to auscultation bilaterally. No wheezes, and no crackles. No accessory muscle use. HEART: Regular rate and rhythm, normal S1 and S2 without murmur, rub or gallop. ABDOMEN: Soft, nontender, not distended, normoactive bowel sounds, no guarding, no rebound, no masses. No hepatomegaly or splenomegaly. MUSCULOSKELETAL: Normal range of motion at all joints. No bony deformities or tenderness. No CVA tenderness. UPPER EXTREMITIES: 2+ pulses, warm, well-perfused. No cyanosis. No clubbing. No peripheral edema. RUE AV fistula with (+) bruit (+) thrill LOWER EXTREMITIES: 2+ pulses, warm, well-perfused. No calf tenderness. No peripheral edema. R BKA. L TMA. NEUROLOGICAL: Cranial nerves II-XII intact. Normal speech. Normal gait. PSYCHIATRIC: Cooperative. Good eye contact. Appropriate mood and affect. SKIN: Warm, dry, normal turgor, no rashes or lesions noted, normal capillary refill. Laboratory Results - last 24 hr 05/29/17 05/30/17 05/30/17 22:02 06:42 06:50 WBC 6.9 RBC 3.28 L Hgb 9.3 L D Hct 28.9 L MCV 88.1 MCH 28.2 MCHC 32.0 RDW 17.3 H Plt Count 223 MPV 8.3 Neutrophils % 52.4 Lymphocytes % 30.7 Monocytes % 12.2 H Eosinophils % 3.5 Basophils % 1.2 Sodium Potassium Chloride Carbon Dioxide Anion Gap BUN Creatinine POC Glucometer 141 115 Random Glucose Calcium Phosphorus Magnesium 10/19/17 10/19/17 10/19/17 06:50 12:02 13:42 WBC RBC Hgb Hct MCV MCH MCHC RDW Plt Count MPV Neutrophils % Lymphocytes % Monocytes % Eosinophils % Basophils % Sodium 140 Potassium 5.1 Chloride 104 Carbon Dioxide 24 Anion Gap 12 BUN 90 H Creatinine 11.1 H* POC Glucometer 58 102 Random Glucose 85 D Calcium 8.4 L Phosphorus 5.4 H Magnesium 2.7 H D Active Medications Generic Name Dose Route Start Last Admin Trade Name Freq PRN Reason Stop Dose Admin Acetaminophen 325 mg 05/29/17 20:59 Tylenol - PO Q6H PRN PAIN OR FEVER Amlodipine Besylate 5 mg 05/30/17 10:00 05/30/17 09:29 Norvasc - PO 5 mg DAILY BLANCHE Administration Aspirin 81 mg 05/30/17 10:00 05/30/17 13:51 Asa - PO Not Given DAILY [facility] Atorvastatin Calcium 10 mg 05/29/17 22:00 05/29/17 22:00 Lipitor - PO 10 mg HS BLANCHE Administration Carvedilol 6.25 mg 05/29/17 22:00 05/30/17 09:29 Coreg - PO 6.25 mg BID BLANCHE Administration Heparin Sodium (Porcine) 5,000 unit 05/29/17 22:00 05/30/17 10:00 Heparin - SQ Not Given BID [facility] Insulin Detemir 15 units 05/30/17 07:00 05/30/17 06:46 Levemir Vial SQ 15 units AM BLANCHE Administration Multivitamins/Minerals 1 each 05/30/17 10:00 05/30/17 13:51 Theragran-M PO Not Given DAILY [facility] Ondansetron HCl 8 mg 05/29/17 20:59 Zofran - PO Q8H PRN NAUSEA Pantoprazole Sodium 40 mg 05/29/17 22:00 05/30/17 13:51 Protonix - PO Not Given BID [facility] Sevelamer Carbonate 2,400 mg 05/29/17 20:15 05/30/17 12:01 Renvela - PO 2,400 mg TIDCM BLANCHE Administration ASSESSMENT/PLAN: Patient is a 72 year old woman with ESRD on HD through her right arm fistula. She was unable to be dialyzed yesterday due to occlusion of the fistula. She denies any pain. Renal: ESRD on dialysis IR placed temporary right IJ hemodialysis catheter today Renal following For dialysis today Vascular following, notes reviewed Cardiology: Hypertension, chronic On Norvasc and Coreq, monitor BP Endocrine: BGMs, on sliding scale Levemir F.E.N. No IVF, monitor electrolytes, renal diet Prophylaxis heparin Dispo- requires observation of acute medical conditions
[2017-05-30] MEDS: ATORVASTATIN CA 10 MG TABLET (FP) PO SCH (22:42)
[2017-05-31] MEDS ORDERED: LIDOCAINE HCL 1%, 10 MG/ML (50 mL VIAL) IJ ONE
--- NOTE | 2017-05-31 01:48 | CONSULT ---
Consult Consult Specialty:: endocrine Referred by:: alfredo blanton np Reason for Consultation:: diabetes mellitus - History of Present Illness Chief Complaint: clogged fistula History of Present Illness: 72yo woman with PMH HTN, DM, ESRD on HD, choleycystectomy, R BKA and L TMA who was sent to ED by her vascular surgeon for clogged AV fistula. She deniescp fever,cough or chills,denies hypoglycemia,nausea or vomiting. 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: Yes: Peripheral Neuropathy Cardio/Vascular: Yes: HTN Renal/: Yes: Renal Failure, Hemodialysis Endocrine: Yes: Diabetes Mellitus - Past Surgical History Past Surgical History: Yes: AV Fistula/Graft (RT RT BKA AND LEFT TMA) - Alcohol/Substance Use Hx Alcohol Use: No - Smoking History Smoking history: Never smoked Have you smoked in the past 12 months: No Aproximately how many cigarettes per day: 0 If you are a former smoker, when did you quit?: 30 yrs ago - Social History Usual Living Arrangement: Other (WILL LIVE NOW IN [place] WITH SON) Home Medications - Allergies Allergies/Adverse Reactions: Allergies Allergy/AdvReac Type Severity Reaction Status Date / Time adhesive tape Allergy Intermediate Itching Verified 05/29/17 17:41 levofloxacin [From Levaquin] Allergy Unknown Verified 05/29/17 17:41 - Home Medications Home Medications: Ambulatory Orders Atorvastatin Ca [Lipitor] 10 mg PO HS #0 tablet 08/26/12 Multivitamins Ther W-Minerals [Theragran-M -] 1 each PO DAILY #0 tablet Aspirin [ASA -] 81 mg PO DAILY #0 tab.chew 03/27/13 Acetaminophen [Tylenol] 325 mg PO ASDIR 05/07/17 Amlodipine Besylate [Norvasc -] 5 mg PO DAILY 05/07/17 Carvedilol [Coreg -] 6.25 mg PO BID 05/07/17 Docusate Sodium [Dulcolax Stool Softener] 100 mg PO ASDIR 05/07/17 Ondansetron HCl [Zofran] 8 mg PO ASDIR 05/07/17 Pantoprazole Sodium [Protonix] 40 mg PO BID 05/07/17 Sevelamer Carbonate [Renvela] 2,400 mg PO CM 05/07/17 Insulin (Levemir) [Levemir Vial] 15 units SQ AM #100 ml MDD 1 05/10/17 Family Disease History - Family Disease History Family Disease History: Diabetes: Mother Review of Systems - Review of Systems Constitutional: reports: Weakness Eyes: reports: Blurred Vision HENT: reports: No Symptoms Neck: reports: No Symptoms Cardiovascular: reports: No Symptoms Respiratory: reports: Exercise Intolerance, SOB on Exertion Gastrointestinal: reports: Bloating Genitourinary: reports: No Symptoms Musculoskeletal: reports: Extremity Pain, Muscle Pain, Muscle Cramps, Muscle Weakness Integumentary: reports: No Symptoms Neurological: reports: Unsteady Gait, Weakness Endocrine: reports: Increased Hunger Physical Exam Vital Signs: Vital Signs Temperature 98.8 F 05/30/17 14:30 Pulse Rate 78 05/30/17 17:44 Respiratory Rate 18 05/30/17 17:44 Blood Pressure 131/66 05/30/17 17:44 O2 Sat by Pulse Oximetry (%) 97 05/30/17 11:00 Constitutional: Yes: Calm Eyes: Yes: EOM Intact HENT: Yes: Normocephalic Neck: Yes: Trachea Midline Cardiovascular: Yes: Regular Rate and Rhythm Respiratory: Yes: CTA Bilaterally Gastrointestinal: Yes: Normal Bowel Sounds ...Rectal Exam: Yes: Deferred Renal/: Yes: WNL Breast(s): Yes: WNL Musculoskeletal: Yes: WNL Extremities: Yes: Cool, Delayed Capillary Refill Edema: No Neurological: Yes: Alert, Oriented, Weakness Labs: CBC, BMP 05/30/17 06:50 05/30/17 06:50 Problem List - Problems (1) ESRD (end stage renal disease) on dialysis Code(s): N18.6 - END STAGE RENAL DISEASE Z99.2 - DEPENDENCE ON RENAL DIALYSIS (2) HTN (hypertension) Code(s): I10 - ESSENTIAL (PRIMARY) HYPERTENSION (3) Hyperkalemia Code(s): E87.5 - HYPERKALEMIA (4) Type 2 diabetes mellitus with retinopathy without macular edema Code(s): E11.319 - TYPE 2 DIABETES W UNSP DIABETIC RTNOP W/O MACULAR EDEMA Assessment/Plan Current Active Problems AV fistula thrombosis (Acute) dm htn hyperkalemia anemia Abnormal Lab Results 05/30/17 05/30/17 06:50 06:50 RBC 3.28 L Hgb 9.3 L D Hct 28.9 L RDW 17.3 H Monocytes % 12.2 H BUN 90 H Creatinine 11.1 H* Calcium 8.4 L Phosphorus 5.4 H Magnesium 2.7 H D Laboratory Results - last 24 hr 05/30/17 05/30/17 05/30/17 06:42 06:50 06:50 WBC 6.9 RBC 3.28 L Hgb 9.3 L D Hct 28.9 L MCV 88.1 MCH 28.2 MCHC 32.0 RDW 17.3 H Plt Count 223 MPV 8.3 Neutrophils % 52.4 Lymphocytes % 30.7 Monocytes % 12.2 H Eosinophils % 3.5 Basophils % 1.2 Sodium 140 Potassium 5.1 Chloride 104 Carbon Dioxide 24 Anion Gap 12 BUN 90 H Creatinine 11.1 H* POC Glucometer 115 Random Glucose 85 D Calcium 8.4 L Phosphorus 5.4 H Magnesium 2.7 H D 05/30/17 05/30/17 05/30/17 12:02 13:42 18:01 WBC RBC Hgb Hct MCV MCH MCHC RDW Plt Count MPV Neutrophils % Lymphocytes % Monocytes % Eosinophils % Basophils % Sodium Potassium Chloride Carbon Dioxide Anion Gap BUN Creatinine POC Glucometer 58 102 203 Random Glucose Calcium Phosphorus Magnesium 05/30/17 20:21 WBC RBC Hgb Hct MCV MCH MCHC RDW Plt Count MPV Neutrophils % Lymphocytes % Monocytes % Eosinophils % Basophils % Sodium Potassium Chloride Carbon Dioxide Anion Gap BUN Creatinine POC Glucometer 220 Random Glucose Calcium Phosphorus Magnesium plan: bgm qid novolog insulin levemir 15 units am ck hb a1c Laboratory Tests Laboratory Tests 05/09/17 06:45 Hemoglobin A1c % 8.0 H
[2017-05-31] MEDS: INSULIN SLIDING SCALE (NOVOLOG) 1 VIAL SQ SCH ×4 (06:20→22:37)
[2017-05-31] MEDS: INSULIN DETEMIR 100 UNITS/ML MDV SQ SCH (06:20)
[2017-05-31 07:29] LABS: BASOPHIL 0.8 % (0-2.0); EOSINOPHIL 2.8 % (0-4.5); MCH 28.2 pg (25.7-33.7); MCHC 32.2 g/dl (32.0-36.0); MEAN CELL VOLUME 87.5 fl (80-96); MEAN PLT VOLUME 8.1 fl (7.5-11.1); NEUTROPHILS 56.8 % (42.8-82.8); PLATELET COUNT 198 K/MM3 (134-434); RDW 16.9 % (11.6-15.6); WHITE BLOOD COUNT 5.4 K/mm3 (4.0-10.0)
[2017-05-31] MEDS: SEVELAMER CARBONATE 800 MG TAB (FP) PO SCH ×3 (08:11→18:54)
[2017-05-31 08:42] LABS: ALBUMIN 2.7 g/dl (3.4-5.0); CALCIUM 8.8 mg/dL (8.5-10.1)
[2017-05-31 08:48] LABS: ALK PHOS 348 U/L (45-117); ANION GAP 11 (8-16); BILIRUBIN,TOTAL 0.3 mg/dL (0.2-1.0); CO2 27 mmol/L (21-32); CREATININE 6.5 mg/dL (0.55-1.02); GLUCOSE,RANDOM 178 mg/dL (74-106); MAGNESIUM 2.5 mg/dL (1.8-2.4); SGOT/AST 13 U/L (15-37); SGPT/ALT 20 U/L (12-78)
[2017-05-31] MEDS ORDERED: PT OWN MED DRAWER 7, Y5N ONE ×2 (09:44→17:40)
[2017-05-31] MEDS: ASPIRIN 81 MG CHEWABLE TABLETS PO SCH (10:12)
[2017-05-31] MEDS: MULTIVITAMINS THER W-MINERALS COMBO TABLET (FP) PO SCH (10:12)
[2017-05-31] MEDS: HEPARIN NA (PORCINE) 5,000 UNITS/ML 1ML VIAL SQ SCH ×2 (10:12→22:31)
[2017-05-31] MEDS: amLODIPine BESYLATE 5 MG TABLET (FP) PO SCH (10:14)
[2017-05-31] MEDS: CARVEDILOL 6.25 MG TABLET (FP) PO SCH ×2 (10:14→22:31)
[2017-05-31] MEDS: PANTOPRAZOLE 40 MG TABLET (FP) PO SCH ×2 (10:14→22:31)
[2017-05-31] MEDS ORDERED: PROPOFOL 20 ML ONE ×4 (14:40)
[2017-05-31] MEDS ORDERED: MIDAZOLAM HCL 2 MG/2 ML SINGLE DOSE VIAL ONE (14:40)
[2017-05-31] MEDS ORDERED: HEPARIN NA (PORCINE) 5,000 UNITS/ML 1ML VIAL ONE (14:47)
--- NOTE | 2017-05-31 14:47 | PN ---
Physical Exam: SUBJECTIVE: Patient seen and examined at the bedside. She was sitting in the chair, denies any pain or discomfort. OBJECTIVE: Patient received dialysis yesterday from temporary shiley catheter Vital Signs Period Temp Pulse Resp BP Sys/Carrillo Pulse Ox Last 24 Hr 98.0 F-98.6 F 72-86 16-18 114-158/58-80 98-98 GENERAL: Awake, alert, and fully oriented, in no acute distress. HEAD: Normal with no signs of trauma. EYES: Pupils equal, round and reactive to light, extraocular movements intact, sclera anicteric, conjunctiva clear. No lid lag. EARS, NOSE, THROAT: Ears normal, nares patent, oropharynx clear without exudates. Moist mucous membranes. NECK: Normal range of motion, supple without lymphadenopathy, JVD, or masses. LUNGS: Breath sounds equal, clear to auscultation bilaterally. No wheezes, and no crackles. No accessory muscle use. HEART: Regular rate and rhythm, normal S1 and S2 without murmur, rub or gallop. ABDOMEN: Soft, nontender, not distended, normoactive bowel sounds, no guarding, no rebound, no masses. No hepatomegaly or splenomegaly. MUSCULOSKELETAL: Normal range of motion at all joints. No bony deformities or tenderness. No CVA tenderness. UPPER EXTREMITIES: 2+ pulses, warm, well-perfused. No cyanosis. No clubbing. No peripheral edema. RUE AV fistula with (+) bruit (+) thrill LOWER EXTREMITIES: 2+ pulses, warm, well-perfused. No calf tenderness. No peripheral edema. R BKA. L TMA. NEUROLOGICAL: Cranial nerves II-XII intact. Normal speech. Normal gait. PSYCHIATRIC: Cooperative. Good eye contact. Appropriate mood and affect. SKIN: Warm, dry, normal turgor, no rashes or lesions noted, normal capillary refill. Laboratory Results - last 24 hr 05/30/17 05/30/17 05/31/17 18:01 20:21 05:07 WBC RBC Hgb Hct MCV MCH MCHC RDW Plt Count MPV Neutrophils % Lymphocytes % Monocytes % Eosinophils % Basophils % Sodium Potassium Chloride Carbon Dioxide Anion Gap BUN Creatinine Creat Clearance w eGFR POC Glucometer 203 220 162 Random Glucose Calcium Magnesium Total Bilirubin AST ALT Alkaline Phosphatase Total Protein Albumin 05/31/17 05/31/17 05/31/17 06:50 06:50 11:21 WBC 5.4 RBC 3.31 L Hgb 9.3 L Hct 29.0 L MCV 87.5 MCH 28.2 MCHC 32.2 RDW 16.9 H Plt Count 198 MPV 8.1 Neutrophils % 56.8 Lymphocytes % 27.0 Monocytes % 12.6 H Eosinophils % 2.8 Basophils % 0.8 Sodium 141 Potassium 4.1 Chloride 103 Carbon Dioxide 27 Anion Gap 11 BUN 46 H D Creatinine 6.5 H D Creat Clearance w eGFR 6.32 POC Glucometer 127 Random Glucose 178 H D Calcium 8.8 Magnesium 2.5 H Total Bilirubin 0.3 D AST 13 L D ALT 20 D Alkaline Phosphatase 348 H Total Protein 6.0 L Albumin 2.7 L Active Medications Generic Name Dose Route Start Last Admin Trade Name Freq PRN Reason Stop Dose Admin Acetaminophen 325 mg 05/29/17 20:59 Tylenol - PO Q6H PRN PAIN OR FEVER Amlodipine Besylate 5 mg 05/30/17 10:00 05/31/17 10:14 Norvasc - PO 5 mg DAILY [facility] Administration Aspirin 81 mg 05/30/17 10:00 05/31/17 10:12 Asa - PO Not Given DAILY [facility] Atorvastatin Calcium 10 mg 05/29/17 22:00 05/30/17 22:42 Lipitor - PO 10 mg HS [facility] Administration Carvedilol 6.25 mg 05/29/17 22:00 05/31/17 10:14 Coreg - PO 6.25 mg BID [facility] Administration Heparin Sodium (Porcine) 5,000 unit 05/29/17 22:00 05/31/17 10:12 Heparin - SQ Not Given BID [facility] Insulin Aspart 1 vial 05/31/17 07:00 05/31/17 11:23 Novolog Vial Sliding Scale - SQ Not Given ACHS [facility] Protocol Insulin Detemir 15 units 05/30/17 07:00 05/31/17 06:20 Levemir Vial SQ Not Given AM [facility] Multivitamins/Minerals 1 each 05/30/17 10:00 05/31/17 10:12 Theragran-M PO Not Given DAILY [facility] Ondansetron HCl 8 mg 05/29/17 20:59 Zofran - PO Q8H PRN NAUSEA Pantoprazole Sodium 40 mg 05/29/17 22:00 10/20/17 10:14 Protonix - PO 40 mg BID [facility] Administration Sevelamer Carbonate 2,400 mg 05/29/17 20:15 05/31/17 11:23 Renvela - PO Not Given TIDCM [facility] ASSESSMENT/PLAN: Patient is a 72 year old woman with ESRD on HD through her right arm fistula. She was unable to be dialyzed on 05/28/2017 due to occlusion of the fistula. She denies any pain. Renal: ESRD on dialysis IR placed temporary right IJ hemodialysis catheter today, dialysis through shiley cath yesterday Renal following For dialysis tomorrow Vascular following, for AV fistula procedure today Cardiology: Hypertension, chronic On Norvasc and Coreq, monitor BP Endocrine: BGMs, on sliding scale Levemir F.E.N. No IVF, monitor electrolytes, renal diet Prophylaxis heparin BID Dispo- requires observation of acute medical conditions. full code
[2017-05-31] MEDS ORDERED: LIDOCAINE HCL 2% JELLY (5 ML/TUBE) ONE (15:09)
[2017-05-31] MEDS ORDERED: ePHEDrine SULFATE 50 MG/1 ML AMPULE ONE (16:15)
--- NOTE | 2017-05-31 16:33 | OP ---
Operative Note - Note: Operative Date: 05/31/17 Pre-Operative Diagnosis: ESRD. Malfunction of AV access Operation: Venogram right arm AV fistula. Placement Permacath Findings: Patent AV fistula in distal upper arm with occlusion of proximal vein and collateral veins connection to deep veins and axillary vein. No ventral vein stenosis. Implants: 32 cm Permacath Post-Operative Diagnosis: Same as Pre-op Surgeon: Michi Weldon Anesthesiologist/AUTOMOTIVE GENERAL SALES MANAGER: Bob Ziegler Anesthesia: Fractional
[2017-05-31] MEDS ORDERED: ACETAMINOPHEN 325 MG TABLET (FP) PO PRN (17:20)
[2017-05-31] MEDS ORDERED: ONDANSETRON 4 MG TABLET PO PRN (17:20)
--- NOTE | 2017-05-31 17:44 | PN ---
Progress Note (short form) - Note Progress Note: RENAL 72 year old with malfunctioning AVF Perm cath just placed HD in am prior to DC orders in place
[2017-05-31] MEDS ORDERED: INSULIN (NOVOLOG) ASPART 100 UNITS/ML 10ML VIAL ONE (20:38)
[2017-05-31] MEDS ORDERED: ATORVASTATIN CA 10 MG TABLET (FP) PO SCH (22:00)
[2017-06-01] MEDS: INSULIN SLIDING SCALE (NOVOLOG) 1 VIAL SQ SCH ×2 (06:32→12:06)
[2017-06-01] MEDS ORDERED: INSULIN DETEMIR 100 UNITS/ML MDV SQ SCH (07:00)
[2017-06-01] MEDS: SEVELAMER CARBONATE 800 MG TAB (FP) PO SCH ×2 (08:30→11:55)
[2017-06-01 08:57] LABS: BASOPHIL 0.8 % (0-2.0); EOSINOPHIL 4.4 % (0-4.5); MCH 28.1 pg (25.7-33.7); MCHC 31.7 g/dl (32.0-36.0); MEAN CELL VOLUME 88.9 fl (80-96); MEAN PLT VOLUME 8.7 fl (7.5-11.1); NEUTROPHILS 60.3 % (42.8-82.8); PLATELET COUNT 197 K/MM3 (134-434); RDW 17.8 % (11.6-15.6); WHITE BLOOD COUNT 7.3 K/mm3 (4.0-10.0)
[2017-06-01] MEDS ORDERED: EPOETIN ALFA 10,000 UNIT/1 ML VIAL IVPUSH ONE (09:00)
[2017-06-01 09:32] LABS: ALBUMIN 2.7 g/dl (3.4-5.0); ALK PHOS 314 U/L (45-117); ANION GAP 11 (8-16); BILIRUBIN,TOTAL 0.4 mg/dL (0.2-1.0); CALCIUM 8.9 mg/dL (8.5-10.1); CO2 27 mmol/L (21-32); GLUCOSE,RANDOM 158 mg/dL (74-106); SGOT/AST 17 U/L (15-37); SGPT/ALT 23 U/L (12-78); TOT PROT 6.5 g/dl (6.4-8.2)
[2017-06-01] MEDS ORDERED: ASPIRIN 81 MG CHEWABLE TABLETS PO SCH (10:00)
[2017-06-01] MEDS ORDERED: MULTIVITAMINS THER W-MINERALS COMBO TABLET (FP) PO SCH (10:00)
[2017-06-01] MEDS ORDERED: amLODIPine BESYLATE 5 MG TABLET (FP) PO SCH (10:00)
[2017-06-01 11:44] LABS: CREATININE 2.8 mg/dL (0.55-1.02)
[2017-06-01] MEDS: PANTOPRAZOLE 40 MG TABLET (FP) PO SCH (11:45)
[2017-06-01] MEDS: CARVEDILOL 6.25 MG TABLET (FP) PO SCH (11:45)
[2017-06-01] MEDS: HEPARIN NA (PORCINE) 5,000 UNITS/ML 1ML VIAL SQ SCH (11:48)
--- NOTE | 2017-06-01 11:54 | DS ---
Physical Exam: SUBJECTIVE: Patient seen and examined at the bedside. She denies any pain or shortness of breath. Tolerated HD well. OBJECTIVE: I spoke to Dr. Weldon, who confirmed he will perform revision of the AV fistula as an outpatient Patient tolerate HD through new permacath catheter Vital Signs Period Temp Pulse Resp BP Sys/Carrillo Pulse Ox Last 24 Hr 97.2 F-98.7 F 66-82 12-20 115-170/56-87 98-100 PHYSICAL EXAM GENERAL: Awake, alert, and fully oriented, in no acute distress. HEAD: Normal with no signs of trauma. EYES: Pupils equal, round and reactive to light, extraocular movements intact, sclera anicteric, conjunctiva clear. No lid lag. EARS, NOSE, THROAT: Ears normal, nares patent, oropharynx clear without exudates. Moist mucous membranes. NECK: Normal range of motion, supple without lymphadenopathy, JVD, or masses. LUNGS: Breath sounds equal, clear to auscultation bilaterally. No wheezes, and no crackles. No accessory muscle use. HEART: Regular rate and rhythm, normal S1 and S2 without murmur, rub or gallop. ABDOMEN: Soft, nontender, not distended, normoactive bowel sounds, no guarding, no rebound, no masses. No hepatomegaly or splenomegaly. MUSCULOSKELETAL: Normal range of motion at all joints. No bony deformities or tenderness. No CVA tenderness. UPPER EXTREMITIES: 2+ pulses, warm, well-perfused. No cyanosis. No clubbing. No peripheral edema. RUE AV fistula with (+) bruit (+) thrill LOWER EXTREMITIES: 2+ pulses, warm, well-perfused. No calf tenderness. No peripheral edema. R BKA. L TMA. NEUROLOGICAL: Cranial nerves II-XII intact. Normal speech. Normal gait. PSYCHIATRIC: Cooperative. Good eye contact. Appropriate mood and affect. SKIN: Warm, dry, normal turgor, no rashes or lesions noted, normal capillary refill. LABS Laboratory Results - last 24 hr 05/31/17 05/31/17 06/01/17 17:42 22:36 06:31 WBC RBC Hgb Hct MCV MCH MCHC RDW Plt Count MPV Neutrophils % Lymphocytes % Monocytes % Eosinophils % Basophils % Sodium Potassium Chloride Carbon Dioxide Anion Gap BUN Creatinine Creat Clearance w eGFR POC Glucometer 99 199 141 Random Glucose Calcium Total Bilirubin AST ALT Alkaline Phosphatase Total Protein Albumin 06/01/17 06/01/17 06/01/17 08:00 08:00 10:50 WBC 7.3 D RBC 3.27 L Hgb 9.2 L Hct 29.0 L MCV 88.9 MCH 28.1 MCHC 31.7 L RDW 17.8 H Plt Count 197 MPV 8.7 Neutrophils % 60.3 Lymphocytes % 25.0 Monocytes % 9.5 Eosinophils % 4.4 Basophils % 0.8 Sodium 140 Potassium 4.2 Chloride 102 Carbon Dioxide 27 Anion Gap 11 BUN 64 H D 22 H D Creatinine 8.0 H* D 2.8 H D Creat Clearance w eGFR 4.97 POC Glucometer Random Glucose 158 H Calcium 8.9 Total Bilirubin 0.4 D AST 17 D ALT 23 Alkaline Phosphatase 314 H Total Protein 6.5 Albumin 2.7 L HOSPITAL COURSE: Date of Admission:05/29/17 Date of Discharge: 06/01/17 ASSESSMENT/PLAN: Patient is a 72 year old woman with ESRD on HD through her right arm fistula. She was unable to be dialyzed on 05/28/2017 due to occlusion of the fistula. She denies any pain. Renal: ESRD on dialysis, chronic On 05/31/17 a 32cm permacath was implanted for malfunction of the AV access on right arm Renal following, notes reviewed Patient was dialyzed today via new permacath, tolerated procedure well Next diaysis to resume Saturday at patient home dialysis center Revision of the AV fistula as an outpatient Cardiology: Hypertension, controlled On Norvasc and Coreq Endocrine: BGMs, resume home insulin medications F.E.N. No IVF, monitor electrolytes, renal diet Dispo- full code, discharge home today. Minutes to complete discharge: 60 Discharge Summary Reason For Visit: THROMBOSIS OF ARTERIOUS FISTULA Current Active Problems AV fistula thrombosis (Acute) Condition: Improved - Instructions Diet, Activity, Other Instructions: Mrs. Cruz: Please follow your dialysis as scheduled. Please follow up with Dr. Metz for revision of your AV fistula. Resume all your home medications. Please call me with any questions that you may have. Camila Cruz ROUTER OPERATOR PIN [phone] [facility] Referrals: Deep Melgoza MD [Primary Care Provider] - Michi Weldon MD [Staff Physician] - - Home Medications Comprehensive Discharge Medication List: Ambulatory Orders Atorvastatin Ca [Lipitor] 10 mg PO HS #0 tablet 08/26/12 Multivitamins Ther W-Minerals [Theragran-M -] 1 each PO DAILY #0 tablet Aspirin [ASA -] 81 mg PO DAILY #0 tab.chew 03/27/13 Acetaminophen [Tylenol] 325 mg PO ASDIR 05/07/17 Amlodipine Besylate [Norvasc -] 5 mg PO DAILY 05/07/17 Carvedilol [Coreg -] 6.25 mg PO BID 05/07/17 Docusate Sodium [Dulcolax Stool Softener] 100 mg PO ASDIR 05/07/17 Ondansetron HCl [Zofran] 8 mg PO ASDIR 05/07/17 Pantoprazole Sodium [Protonix] 40 mg PO BID 05/07/17 Sevelamer Carbonate [Renvela] 2,400 mg PO CM 05/07/17 Insulin (Levemir) [Levemir Vial] 15 units SQ AM #100 ml MDD 1 05/10/17 This patient is new to me today: No Emergency Visit: Yes ED Registration Date: 05/29/17 Care time: The patient presented to the Emergency Department on the above date and was hospitalized for further evaluation of their emergent condition. Critical Care patient: No - Discharge Referral Referred to [facility] No
[2017-06-01] MEDS ORDERED: INSULIN (NOVOLOG) ASPART 100 UNITS/ML 10ML VIAL ONE (12:02)
--- NOTE | 2017-06-01 12:48 | PN ---
Progress Note (short form) - Note Progress Note: RENAL pt seen during dialysis which was performed through a permcath in left chest she denied complaints Last Vital Signs Temp Pulse Resp BP Pulse Ox 98.2 F 72 18 167/73 98 06/01/17 09:11 06/01/17 11:05 06/01/17 11:05 06/01/17 11:05 06/01/17 05:16 lungs clear cvs 1s2 rr abd soft ext no edema, has some amputations CBC, BMP 06/01/17 08:00 06/01/17 10:50 Current Medications Generic Name Dose Route Start Last Admin Trade Name Freq PRN Reason Stop Dose Admin Acetaminophen 325 mg 05/31/17 17:20 Tylenol - PO Q6H PRN PAIN OR FEVER Amlodipine Besylate 5 mg 06/01/17 10:00 06/01/17 11:46 Norvasc - PO 5 mg DAILY [facility] Administration Aspirin 81 mg 06/01/17 10:00 06/01/17 11:45 Asa - PO 81 mg DAILY [facility] Administration Atorvastatin Calcium 10 mg 05/31/17 22:00 05/31/17 22:31 Lipitor - PO 10 mg HS [facility] Administration Carvedilol 6.25 mg 05/31/17 22:00 06/01/17 11:45 Coreg - PO 6.25 mg BID [facility] Administration Heparin Sodium (Porcine) 5,000 unit 05/31/17 22:00 06/01/17 11:48 Heparin - SQ 5,000 unit BID [facility] Administration Insulin Aspart 1 vial 05/31/17 22:00 06/01/17 12:06 Novolog Vial Sliding Scale - SQ 4 units ACHS [facility] Administration Protocol Insulin Detemir 15 units 06/01/17 07:00 06/01/17 06:34 Levemir Vial SQ 15 units AM [facility] Administration Multivitamins/Minerals 1 each 06/01/17 10:00 06/01/17 11:46 Theragran-M PO 1 each DAILY [facility] Administration Ondansetron HCl 8 mg 05/31/17 17:20 Zofran - PO Q8H PRN NAUSEA Pantoprazole Sodium 40 mg 05/31/17 22:00 06/01/17 11:45 Protonix - PO 40 mg BID [facility] Administration Sevelamer Carbonate 2,400 mg 05/31/17 17:30 06/01/17 11:55 Renvela - PO 2,400 mg TIDCM [facility] Administration IMPRESSION nonfunctioning avf s/p PC insertion which is working PLAN stable for discharge from renal perspective Dr Mcfarlane to follow up as outpatient MV
--- NOTE | 2017-06-01 12:58 | OP ---
DATE OF OPERATION: 05/31/2017 PROCEDURE: Venogram right arm AV fistula and placement of PermCath right internal jugular vein with ultrasound guidance. PREOPERATIVE DIAGNOSIS: Malfunctioning fistula right upper extremity, endstage renal disease with hemodialysis. POSTOPERATIVE DIAGNOSIS: Malfunctioning fistula right upper extremity, endstage renal disease with hemodialysis. ANESTHESIA: Fractional. ANESTHESIOLOGIST: Dr. Ziegler. OPERATIVE FINDINGS: Venography of the right upper arm fistula revealed a patent brachiocephalic fistula in the distal right upper extremity which occluded in the mid portion of the upper arm with no reconstitution of the cephalic vein. There were multiple collaterals extending down to the deep venous systems of the arm with patent axillary subclavian and superior vena cava. GUT SNATCHER: PROCEDURE IN DETAIL: Following routine patient identification with site and side verification, intravenous sedation was established. The right arm was prepped with ChloraPrep. A timeout was performed. Xylocaine 1% was infiltrated in the skin over the distal aspect of the AV fistula at the elbow and the vein was cannulated with a micropuncture needle. A wire was passed proximally and the needle was exchanged for a 5-Namibian catheter. A short 6-Namibian sheath was then exchanged over the wire into the vein. Venography was then performed with dilute contrast with the above-noted findings. A stiff angled glidewire and catheter were then advanced to the point of occlusion and attempts made to advanced into the occluded segment of the vein which were unsuccessful. The sheath was then removed and bleeding controlled with a mattress suture of 3-0 nylon. Attention was then turned to the left neck and chest which were prepped with ChloraPrep. Under real-time duplex imaging, the left external jugular vein was identified. This was large and no internal jugular was seen. Lidocaine was infiltrated laterally in the neck over the vein and the vein was then cannulated with a micropuncture needle under ultrasound guidance. A wire was passed proximally into the superior vena cava and right atrium. The needle was exchanged for a 5-Namibian catheter. Venography was performed through the catheter to confirm venous placement. A J-tipped wire was then advanced toward the heart, through the right atrium and into the inferior vena cava. Additional Xylocaine was then infiltrate on the chest wall a stab wound made. A 32-cm length PermCath was passed with a tunneler from chest to neck. The cup was positioned in the subcutaneous tissues. The tract around the wire was then dilated and the introducer placed over the wire. The dilator and the wire were removed and the tip of the PermCath was advanced through the introducer into the right atrium. The introducer was peeled away. Each lumen of the catheter was aspirated for blood and flushed with saline and then heparin solution. The neck wound was closed with 3-0 Vicryl subcuticular and the catheter was sutured to the skin at the exit site with 3-0 nylon. Sterile dressings were applied and the patient was taken to the recovery room for a chest x-ray. SANDRA BOURGEOIS M.D. [id number]
[2017-06-01 15:28] VITALS: BP 159/73; PULSE 75; TEMP 98.5
== END 2017-06-01 16:49 | disposition home or self-care (01) ==
LOC: JER 12:53 → JERBED 18:00 → J5S 21:25
PROVIDERS: ADMIT Internal Medicine; ATTEND Nurse Practitioner Family
PROC: 05HM33Z Insertion of Infusion Device into Right Internal Jugular Vein, Percutaneous Approach (ICD-10-PCS; principal; 2017-05-29)
PROC: B543ZZA Ultrasonography of Right Jugular Veins, Guidance (ICD-10-PCS; 2017-05-29)
PROC: 5A1D70Z Performance of Urinary Filtration, Intermittent, Less than 6 Hours Per Day (ICD-10-PCS; 2017-05-29)
PROC: B51W1ZZ Fluoroscopy of Dialysis Shunt/Fistula using Low Osmolar Contrast (ICD-10-PCS; 2017-05-29)
PROC: 3E033VG Introduction of Insulin into Peripheral Vein, Percutaneous Approach (ICD-10-PCS; 2017-05-29)
PROC: 3E033GC Introduction of Other Therapeutic Substance into Peripheral Vein, Percutaneous Approach (ICD-10-PCS; 2017-05-29)
PROC: 3E013VG Introduction of Insulin into Subcutaneous Tissue, Percutaneous Approach (ICD-10-PCS; 2017-05-29)
PROC: 3E013GC Introduction of Other Therapeutic Substance into Subcutaneous Tissue, Percutaneous Approach (ICD-10-PCS; 2017-05-29)
PROC: 5A1D70Z Performance of Urinary Filtration, Intermittent, Less than 6 Hours Per Day (ICD-10-PCS; 2017-05-29)
DX: T82.868A Thrombosis due to vascular prosthetic devices, implants and grafts, initial encounter (principal); I12.0 Hypertensive chronic kidney disease with stage 5 chronic kidney disease or end stage renal disease; E11.22 Type 2 diabetes mellitus with diabetic chronic kidney disease; E11.319 Type 2 diabetes mellitus with unspecified diabetic retinopathy without macular edema; N18.6 End stage renal disease; E78.5 Hyperlipidemia, unspecified; Z99.2 Dependence on renal dialysis; Z79.4 Long term (current) use of insulin; Z87.891 Personal history of nicotine dependence; Z89.511 Acquired absence of right leg below knee; Z89.422 Acquired absence of other left toe(s); Z79.82 Long term (current) use of aspirin; Z88.1 Allergy status to other antibiotic agents; Y83.2 Surgical operation with anastomosis, bypass or graft as the cause of abnormal reaction of the patient, or of later complication, without mention of misadventure at the time of the procedure; Y92.9 Unspecified place or not applicable; G62.9 Polyneuropathy, unspecified; D64.9 Anemia, unspecified; E87.5 Hyperkalemia
CPT/HCPCS: 36558; 36901; 76937; 96372; 96374; 96375; 96376; G0257; 36415; 36556; 71010-TC; 76000-TC; 77001-TC; 80048; 80053; 82565; 83735; 84100; 84520; 85025; 85610; 85730; 86850; 86900; 86901; 93005; 93010; 93930; 94760; 99283-25; C1751; G0378; J0885; J1644

== ENCOUNTER 2017-06-12 06:22 | Day surgery (SDC) | payer OTHER, BC ==
[2017-06-11 11:17] VITALS: BMI 28.8
[2017-06-12] MEDS ORDERED: LIDOCAINE HCL 1%, 10 MG/ML (20ML VIAL) ONE (07:22)
[2017-06-12] MEDS ORDERED: HEPARIN NA (PORCINE) 5,000 UNITS/ML 1ML VIAL ONE (07:22)
[2017-06-12] MEDS ORDERED: POVIDONE-IODINE OINTMENT 10% - 28.4 GM TUBE ONE (07:22)
[2017-06-12] MEDS ORDERED: SUCCINYLCHOLINE CHLORIDE 200 MG/10 ML VIAL ONE (07:36)
[2017-06-12] MEDS ORDERED: MIDAZOLAM HCL 2 MG/2 ML SINGLE DOSE VIAL ONE (07:36)
[2017-06-12] MEDS ORDERED: ePHEDrine SULFATE 50 MG/1 ML AMPULE ONE (07:36)
[2017-06-12] MEDS ORDERED: PHENYLEPHRINE HCL 10 MG/1 ML SINGLE DOSE VIAL ONE (07:36)
[2017-06-12] MEDS ORDERED: PROPOFOL 20 ML ONE ×4 (07:36)
--- NOTE | 2017-06-12 08:29 | HP ---
Satellite [facility] - Chief Complaint History of Present Illness: 72 year old woman with ESRD on HD. Right arm fistula is partially occluded. 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: Peripheral Neuropathy Cardiovascular: Yes: HTN Renal/: Yes: Renal Failure, Hemodialysis Heme/Onc: Yes: Anemia Endocrine: Yes: Diabetes Mellitus - Current Medications Current Medications: Home Medications Medication Instructions Recorded Atorvastatin Ca [Lipitor] 10 mg PO HS #0 tablet 08/26/12 Acetaminophen [Tylenol] 325 mg PO ASDIR PRN 05/07/17 Amlodipine Besylate [Norvasc -] 5 mg PO DAILY 05/07/17 Carvedilol [Coreg -] 6.25 mg PO BID 05/07/17 Docusate Sodium [Dulcolax Stool 100 mg PO ASDIR 05/07/17 Softener] Sevelamer Carbonate [Renvela -] 2,400 mg PO CM 05/07/17 Insulin (Levemir) [Levemir Vial] 15 units SQ AM #100 ml MDD 1 05/10/17 Atorvastatin Ca [Lipitor] 10 mg PO HS #30 tablet 06/01/17 Ferrous Sulfate 325 mg PO DAILY 06/11/17 Folic Acid/Vit Bcomp,C [Renal-Marga 0.8 mg PO DAILY 06/11/17 Tablet] Furosemide [Lasix -] 40 mg PO BID 06/11/17 Hydrochlorothiazide [Hctz -] 12.5 mg PO DAILY 06/12/17 Satellite Physical Exam - Physical Examination Vital Signs: Vital Signs Period Temp Pulse Resp BP Sys/Carrillo Pulse Ox Last 24 Hr 98.7 F 76 18 131/63 98 General Appearance: Alert & Oriented x3 ENT: Clear Lung: Clear to auscultation Heart: Regular rate & rhythm Abdomen: Soft Extremities: Other (Right upper arm fistula with distal pulse) Neurological: Alert Satellite Impression/Plan - Impression/Plan Impression: Occlusion of AV fistula right arm. ESRD on HD Operative Procedure: Revision of AV fistula with graft Date to be Performed: 06/12/17
[2017-06-12] MEDS ORDERED: ceFAZolin SODIUM 1 GM VIAL ONE (08:33)
[2017-06-12] MEDS ORDERED: LIDOCAINE HCL 1%, 10 MG/ML (20ML VIAL) INF ONE ×2 (08:45)
[2017-06-12] MEDS ORDERED: POVIDONE-IODINE OINTMENT 10% - 28.4 GM TUBE TP ONE (10:00)
[2017-06-12] MEDS ORDERED: oxyCODONE HCL 5 MG TABLET PO PRN (10:18)
[2017-06-12] MEDS ORDERED: ONDANSETRON 4 MG/2 ML VIAL IVPUSH PRN (10:18)
--- NOTE | 2017-06-12 10:18 | OP ---
Operative Note - Note: Operative Date: 06/12/17 Pre-Operative Diagnosis: Partial occlusion of AV fistula Operation: Revsion AV fistula with graft Findings: Occlusion proximal right arm fistula Implants: 7 mm PTFE graft Post-Operative Diagnosis: Same as Pre-op Surgeon: Michi Weldon Fitter Machinist: Shaun Gomes Anesthesiologist/TECHNICAL SUPPORT REPRESENTATIVE: Bob Ziegler Anesthesia: Fractional Estimated Blood Loss (mls): 30 Operative Report Dictated: Yes
--- NOTE | 2017-06-12 10:38 | SURG ---
Surgery Manager Environmental Health Note Manager Environmental Health: Shaun Gomes PA-C Date of Service: 06/12/17 Diagnosis: Partially occluded RUE avf Procedure: Revsion RUE AV fistula with graft I was present for the entirety of the operative procedure. For further detail, please refer to operative report. Visit type - Case Type Case Type: Scheduled Admission - New patient This patient is new to me today: Yes Date on this admission: 06/12/17
--- NOTE | 2017-06-12 11:21 | OP ---
DATE OF OPERATION: 06/12/2017 SURGEON: Michi Weldon MD PRIZE FIGHTER: OLI Wilcox PROCEDURE: Revision of right arm arteriovenous fistula with interposition graft. PREOPERATIVE DIAGNOSIS: Partially thrombosed arteriovenous fistula. POSTOPERATIVE DIAGNOSIS: Partially thrombosed arteriovenous fistula. ANESTHESIA: Fractional. ANESTHESIOLOGIST: Bob Ziegler MD OPERATIVE FINDINGS: The right brachiocephalic fistula was patent distally but occluded proximally with outflow via collateral veins to the deep system. The axillary vein was patent and normal caliber. OPERATIVE PROCEDURE: Following routine patient identification with site and side verification, intravenous sedation was established. The right arm and axilla were prepped with ChloraPrep. Timeout was performed. Lidocaine 1% was infiltrated in the right axilla and a longitudinal incision made. The subcutaneous tissues were divided using cautery for hemostasis. The axillary vein was identified and was mobilized from the surrounding tissues with sharp dissection. It was encircled with a vessel loop. A 2nd incision was made in the mid upper arm over the AV fistula at the point of thrombosis. Sharp dissection was used to separate the fistula from the surrounding tissues, but there was too much scar tissue to allow safe dissection. Therefore, another incision was made a little more distally in the arm over a softer area where the vein could be easily dissected. The vein was mobilized and secured with a vessel loop. The axillary vein was then occluded with bulldog clamps and opened in a longitudinal venotomy measuring approximately 15 mm. A 7-mm PTFE Propaten graft was then beveled and anastomosed to the side of the vein with running suture of 6-0 Prolene. Prior to completion of the suture line, the graft was clamped and the vein was allowed to backbleed and flushed with heparinized solution. The suture line was completed and clamps were removed from the vein. Bleeding from the suture line was controlled with Surgicel. The curved metal tunneler was then used to bridge the 2 incisions on the anterior outer aspect of the arm. The graft was passed through the tunneler with care not to twist it. It was trimmed for length. The proximal fistula was then occluded with a vascular clamp and the distal portion clamped with a Lawanda. The vein was transected and the distal end oversewn with a running suture of 5-0 Prolene. An end-to-end anastomosis between graft and vein was then created using running sutures of 6-0 Prolene. Prior to completion of the suture line, the graft was allowed to backbleed and the vein was allowed to flush. The suture line was completed and all vessels were released. There was good flow through the anastomoses with a strong pulse in the graft. Bleeding from suture lines was controlled with Surgicel. When hemostasis was achieved, the wounds were closed with interrupted suture of 3-0 Vicryl in the subcutaneous tissues and skin morelia. Sterile dressings were applied and the patient was taken to the recovery room in stable condition. Leighton [id number]
[2017-06-12 13:41] VITALS: TEMP 98.9
[2017-06-12 14:32] VITALS: BP 125/61
[2017-06-12 14:38] VITALS: PULSE 81
== END 2017-06-12 14:40 | disposition home or self-care (01) ==
LOC: JASU-SURG 06:22
PROVIDERS: ATTEND Surgery
PROC: 05WY0JZ Revision of Synthetic Substitute in Upper Vein, Open Approach (ICD-10-PCS; principal; 2017-06-12 08:00)
DX: I12.0 Hypertensive chronic kidney disease with stage 5 chronic kidney disease or end stage renal disease (principal); N18.6 End stage renal disease; Z99.2 Dependence on renal dialysis
CPT/HCPCS: 36415; 84132; J1644

== ENCOUNTER 2017-07-22 17:52 | Emergency (ER) | payer OTHER, BC ==
[2017-07-22 18:03] VITALS: BP 191/95; PULSE 79; TEMP 97.3; BMI 28.0
--- NOTE | 2017-07-22 18:03 | PDOC ---
Rapid Medical Evaluation Time Seen by Provider: 07/22/17 17:57 Medical Evaluation: Allergies Allergy/AdvReac Type Severity Reaction Status Date / Time adhesive tape Allergy Intermediate Itching Verified 07/22/17 17:56 levofloxacin [From Levaquin] Allergy Unknown Verified 07/22/17 17:56 07/22/17 17:58 The patient presents with a chief complaint of: HX CAD, DM, Renal failure on dialysis with back pain since Saturday. Took Tylenol for pain with no pain. Pain worse on the right. Dialysis pt., last session on Saturday I have performed a brief in-person evaluation of this patient; Pertinent physical exam findings BP 191/95. No TTP of the back I have ordered the following: CBC, CMP, EKG, Cardiac Profile, PT/INR, CXR The patient will proceed to the ED for further evaluation.
[2017-07-22 18:21] LABS: BASOPHIL 0.8 % (0-2.0); EOSINOPHIL 4.2 % (0-4.5); MCH 27.9 pg (25.7-33.7); MEAN CELL VOLUME 87.3 fl (80-96); MEAN PLT VOLUME 7.5 fl (7.5-11.1); NEUTROPHILS 49.9 % (42.8-82.8); PLATELET COUNT 195 K/MM3 (134-434); RDW 18.5 % (11.6-15.6); WHITE BLOOD COUNT 6.4 K/mm3 (4.0-10.0)
[2017-07-22 18:37] LABS: INR 1.03 (0.82-1.09); PROTHROMBIN TIME (PATIENT) 11.6 SEC (9.98-11.88)
[2017-07-22 19:29] LABS: ALBUMIN 3.6 g/dl (3.4-5.0); ANION GAP 6 (8-16); BILIRUBIN,TOTAL 0.3 mg/dL (0.2-1.0); CALCIUM 9.1 mg/dL (8.5-10.1); CO2 29 mmol/L (21-32); CREATININE 6.5 mg/dL (0.55-1.02); GLUCOSE,RANDOM 88 mg/dL (74-106); SGOT/AST 16 U/L (15-37); SGPT/ALT 23 U/L (12-78); TOT PROT 7.4 g/dl (6.4-8.2)
[2017-07-22 19:30] LABS: ALK PHOS 390 U/L (45-117)
[2017-07-22 19:32] LABS: CPK 47 IU/L (26-192); TROPONIN I < 0.02 ng/ml (0.00-0.05)
--- NOTE | 2017-07-22 19:38 | PDOC ---
History of Present Illness - History of Present Illness Initial Comments: 07/22/17 19:49 The patient is a 72 year old female, with a significant past medical history of ESRD(on dialysis T,Th,S), diabetes, hypertension, hyperlipidemia, BKA of right lower extremity, left toe amputations, who presents to the emergency department for evaluation of progressive right sided back pain for 3 days. The patient denies any falls or traumas. The patient reports her pain has been gradually increasing since onset of pain on Saturday night. She reports the pain to her right mid to lower back and came for concern about my kidney. She states she has not been able to get a good nights sleep secondary to pain. She denies pain relief after taking Tylenol earlier today. The patient states she is wheelchair dependent at baseline. Allergies: Levofloxacin Past Surgical History: Right arm fistula, BKA RLE Social History: Former smoker PCP: Dr. Melgoza Vascular Surgeon: Dr. Weldon Molding Line Operator: Dr. Patricia Mcfarlane <Alix Potts - Last Filed: 07/22/17 19:59> <Kayleigh Chisholm - Last Filed: 07/22/17 22:02> - General Chief Complaint: Back Pain Stated Complaint: BACK PAIN Time Seen by Provider: 07/22/17 17:57 Past History <Alix Potts - Last Filed: 07/22/17 19:59> - Past Medical History Anemia: Yes Asthma: No Cancer: No Cardiac Disorders: No CVA: Yes (no residual deficit) COPD: No CHF: No DVT: No Dementia: No Diabetes: Yes Dialysis: Yes (hd t,t,sat, rt arm fistula, rt chest cath) GI Disorders: Yes (reflux) Disorders: No HTN: Yes Hypercholesterolemia: Yes Liver Disease: No Seizures: No Thyroid Disease: No - Surgical History Cholecystectomy: Yes Orthopedic Surgery: Yes (Right Leg BKA, Leg TMA) - Suicide/Smoking/Psychosocial Hx Smoking Status: No Smoking History: Never smoked Years of Tobacco Use: 30 Have you smoked in the past 12 months: No Number of Cigarettes Smoked Daily: 0 If you are a former smoker, when did you quit?: 1981 Information on smoking cessation initiated: No Hx Alcohol Use: No Drug/Substance Use Hx: No Substance Use Type: None Hx Substance Use Treatment: No <Kayleigh Chisholm - Last Filed: 07/22/17 22:02> - Past Medical History Allergies/Adverse Reactions: Allergies Allergy/AdvReac Type Severity Reaction Status Date / Time adhesive tape Allergy Intermediate Itching Verified 07/22/17 17:56 levofloxacin [From Levaquin] Allergy Unknown Verified 07/22/17 17:56 Home Medications: Ambulatory Orders Atorvastatin Ca [Lipitor] 10 mg PO HS #0 tablet 08/26/12 Acetaminophen [Tylenol] 325 mg PO ASDIR PRN 05/07/17 Amlodipine Besylate [Norvasc -] 5 mg PO DAILY 05/07/17 Carvedilol [Coreg -] 6.25 mg PO BID 05/07/17 Docusate Sodium [Dulcolax Stool Softener] 100 mg PO ASDIR 05/07/17 Sevelamer Carbonate [Renvela -] 2,400 mg PO CM 05/07/17 Insulin (Levemir) [Levemir Vial] 15 units SQ AM #100 ml MDD 1 05/10/17 Atorvastatin Ca [Lipitor] 10 mg PO HS #30 tablet 06/01/17 Ferrous Sulfate 325 mg PO DAILY 06/11/17 Folic Acid/Vit Bcomp,C [Renal-Marga Tablet] 0.8 mg PO DAILY 06/11/17 Furosemide [Lasix -] 40 mg PO BID 06/11/17 Hydrochlorothiazide [Hctz -] 12.5 mg PO DAILY 06/12/17 Oxycodone HCl [Roxicodone -] 5 mg PO Q6H PRN #20 tablet MDD 4 06/12/17 Oxycodone HCl 5 mg PO QID PRN #8 capsule MDD 4 07/22/17 Review of Systems - Review of Systems Able to Perform ROS?: Yes Comments:: 07/22/17 19:49 CONSTITUTIONAL: Absent: fever, chills, diaphoresis, generalized weakness, malaise, loss of appetite HEENT: Absent: rhinorrhea, nasal congestion, throat pain, throat swelling, difficulty swallowing, mouth swelling, ear pain, eye pain, visual Changes CARDIOVASCULAR: Absent: chest pain, syncope, palpitations, irregular heart rate, lightheadedness , peripheral edema RESPIRATORY: Absent: cough, shortness of breath, dyspnea with exertion, orthopnea, wheezing, stridor, hemoptysis GASTROINTESTINAL: Absent: abdominal pain, abdominal distension, nausea, vomiting, diarrhea, constipation, melena, hematochezia GENITOURINARY: Absent: dysuria, frequency, urgency, hesitancy, hematuria, flank pain, genital pain MUSCULOSKELETAL: (+) right sided back pain. Absent: arthralgia, joint swelling SKIN: Absent: rash, itching, pallor HEMATOLOGIC/IMMUNOLOGIC: Absent: easy bleeding, easy bruising, lymphadenopathy, frequent infections ENDOCRINE: Absent: unexplained weight gain, unexplained weight loss, heat intolerance, cold intolerance NEUROLOGIC: Absent: headache, focal weakness or paresthesias, dizziness, unsteady gait, seizure, mental status changes, bladder or bowel incontinence PSYCHIATRIC: Absent: anxiety, depression, suicidal or homicidal ideation, hallucinations. <Alix Potts - Last Filed: 07/22/17 19:59> *Physical Exam - Vital Signs Last Vital Signs Temp Pulse Resp BP Pulse Ox 97.3 F L 79 18 191/95 100 07/22/17 17:58 07/22/17 17:58 07/22/17 17:58 07/22/17 17:58 07/22/17 17:58 - Physical Exam Comments: 07/22/17 19:49 GENERAL: Well developed, well nourished. Awake and alert. No acute distress. HEENT: Normocephalic, atraumatic. PERRLA, EOMI. No conjunctival pallor. Sclera are non- icteric. Moist mucous membranes. Oropharynx is clear. NECK: (+) left dialysis access port clean/dry/intact, Supple. Full ROM. No JVD. Carotid pulses 2+ and symmetric, without bruits. No thyromegaly. No lymphadenopathy. CARDIOVASCULAR: (+) murmur. Regular rate and rhythm. No rubs, or gallops. Distal pulses are 2+ and symmetric. PULMONARY: No evidence of respiratory distress. Lungs clear to auscultation bilaterally. No wheezing, rales or rhonchi. ABDOMINAL: Soft. Non-tender. Non-distended. No rebound or guarding. No organomegaly. Normoactive bowel sounds. MUSCULOSKELETAL Normal range of motion at all joints. No bony deformities or tenderness. No CVA tenderness. EXTREMITIES: (+) right upper extremity fistula with palpable thrill. right BKA. Amputations of left lower extremity digits. No wounds, erythema, or tenderness. No cyanosis. No clubbing. No edema. No calf tenderness. SKIN: Warm and dry. Normal capillary refill. No rashes. No jaundice. NEUROLOGICAL: Alert, awake, appropriate. Cranial nerves 2-12 intact. Normoreflexic in the upper and lower extremities. Normal speech. Toes are down-going bilaterally. PSYCHIATRIC: Cooperative. Good eye contact. Appropriate mood and affect. <Alix Potts - Last Filed: 07/22/17 19:59> - Vital Signs Last Vital Signs Temp Pulse Resp BP Pulse Ox 97.3 F L 79 18 191/95 100 07/22/17 17:58 07/22/17 17:58 07/22/17 17:58 07/22/17 17:58 07/22/17 17:58 <Kayleigh Chisholm - Last Filed: 07/22/17 22:02> ED Treatment Course - LABORATORY CBC & Chemistry Diagram: 07/22/17 18:10 07/22/17 18:10 - ADDITIONAL ORDERS Additional order review: Laboratory Results 07/22/17 07/22/17 07/22/17 18:10 18:10 18:10 PT with INR 11.60 INR 1.03 Sodium 140 Potassium 4.5 D Chloride 105 Carbon Dioxide 29 Anion Gap 6 L BUN 38 H D Creatinine 6.5 H D Creat Clearance w eGFR 6.32 Random Glucose 88 D Calcium 9.1 Total Bilirubin 0.3 D AST 16 ALT 23 Alkaline Phosphatase 390 H D Creatine Kinase 47 Troponin I < 0.02 Total Protein 7.4 Albumin 3.6 D 07/22/17 18:10 RBC 3.57 L MCV 87.3 MCHC 32.0 RDW 18.5 H MPV 7.5 D Neutrophils % 49.9 Lymphocytes % 35.1 D Monocytes % 10.0 Eosinophils % 4.2 Basophils % 0.8 - RADIOLOGY Radiograph Interpretation: EXAM#: TYPE/EXAM: RESULT: [id number] RAD/CHEST PA LAT HISTORY PROVIDED: Chest pain PA and lateral projections of the chest are submitted. The heart size is enlarged. A left-sided permacath is present. The lung robbins are free of pulmonary infiltrates or pleural effusions. There is tortuosity and calcification of the thoracic aorta and degenerative arthritis of the thoracic spine. IMPRESSION: Cardiomegaly, no acute disease. Reported By: David Felix MD 07/22/171950 <Alix Potts - Last Filed: 07/22/17 19:59> - LABORATORY CBC & Chemistry Diagram: 07/22/17 18:10 07/22/17 18:10 - ADDITIONAL ORDERS Additional order review: Laboratory Results 07/22/17 07/22/17 07/22/17 18:10 18:10 18:10 PT with INR 11.60 INR 1.03 Sodium 140 Potassium 4.5 D Chloride 105 Carbon Dioxide 29 Anion Gap 6 L BUN 38 H D Creatinine 6.5 H D Creat Clearance w eGFR 6.32 Random Glucose 88 D Calcium 9.1 Total Bilirubin 0.3 D AST 16 ALT 23 Alkaline Phosphatase 390 H D Creatine Kinase 47 Troponin I < 0.02 Total Protein 7.4 Albumin 3.6 D 07/22/17 18:10 RBC 3.57 L MCV 87.3 MCHC 32.0 RDW 18.5 H MPV 7.5 D Neutrophils % 49.9 Lymphocytes % 35.1 D Monocytes % 10.0 Eosinophils % 4.2 Basophils % 0.8 <Kayleigh Chisholm - Last Filed: 07/22/17 22:02> *DC/Admit/Observation/Transfer - Attestations Scribe Attestion: 07/22/17 19:53 Documentation prepared by Alix Potts, acting as manager medical device for Kayleigh Chisholm MD <Alix Potts - Last Filed: 07/22/17 19:59> <Kayleigh Chisholm - Last Filed: 07/22/17 22:02> Diagnosis at time of Disposition: ESRD (end stage renal disease) on dialysis UTI (urinary tract infection) Qualifiers: Urinary tract infection type: site unspecified Hematuria presence: without hematuria Qualified Code(s): N39.0 - Urinary tract infection, site not specified - Discharge Dispostion Disposition: HOME Condition at time of disposition: Stable - Prescriptions Prescriptions: Oxycodone HCl 5 mg PO QID PRN #8 capsule MDD 4 PRN Reason: Back Pain - Referrals Referrals: Deep Melgoza MD [Primary Care Provider] - - Patient Instructions Printed Discharge Instructions: DI for Low Back Pain, DI for Urinary Tract Infection (UTI) Additional Instructions: please keep your dialysis appointment
[2017-07-22 20:40] LABS: URINE APPEARANCE CLOUDY; URINE BILIRUBIN NEGATIVE (NEGATIVE); URINE BLOOD 1+ (NEGATIVE); URINE COLOR DKYELLOW; URINE GLUCOSE (UA) NEGATIVE (NEGATIVE); URINE KETONE NEGATIVE (NEGATIVE); URINE LEUK ESTERASE 3+ (NEGATIVE); URINE NITRITE NEGATIVE (NEGATIVE); URINE PROTEIN 2+ (NEGATIVE); URINE UROBILINOGEN NEGATIVE mg/dL (0.2-1.0)
[2017-07-22 20:43] LABS: URINE BACTERIA RARE /hpf (NONE SEEN); URINE HYALINE CAST 7 /lpf; URINE MUCUS RARE; URINE RBC 10 /hpf (0-3); URINE WBC 209 /hpf (3-5)
[2017-07-22] MEDS ORDERED: CEPHALEXIN MONOHYDRATE 500 MG CAPSULE (UD) PO STA (21:43)
[2017-07-22] MEDS ORDERED: CEPHALEXIN MONOHYDRATE 250 MG CAPSULE (FP) ONE (21:52)
[2017-07-22 23:06] LABS: URINE LEUK ESTERASE 2+ (NEGATIVE)
--- NOTE | 2017-07-23 14:42 | EKG ---
Test Reason : Blood Pressure : / mmHG Vent. Rate : 078 BPM Atrial Rate : 078 BPM P-R Int : 162 ms QRS Dur : 086 ms QT Int : 402 ms P-R-T Axes : 058 -26 038 degrees QTc Int : 458 ms NORMAL SINUS RHYTHM MINIMAL VOLTAGE CRITERIA FOR LVH, MAY BE NORMAL VARIANT BORDERLINE ECG WHEN COMPARED WITH ECG OF 29-MAY-2017 13:53, CRITERIA FOR SEPTAL INFARCT ARE NO LONGER PRESENT BORDERLINE CRITERIA FOR LATERAL INFARCT ARE NO LONGER PRESENT Confirmed by DEEP GILBERT MD ([id number]) on 07/23/2017 2:42:06 PM Referred By: Confirmed By:DEEP GILBERT MD
== END 2017-07-22 22:15 | disposition home or self-care (01) ==
LOC: JER 17:52
DX: N39.0 Urinary tract infection, site not specified (principal); E11.22 Type 2 diabetes mellitus with diabetic chronic kidney disease; I12.0 Hypertensive chronic kidney disease with stage 5 chronic kidney disease or end stage renal disease; N18.6 End stage renal disease; Z99.2 Dependence on renal dialysis; Z79.4 Long term (current) use of insulin; Z87.891 Personal history of nicotine dependence
CPT/HCPCS: 36415; 71020-TC; 80053; 81003; 81015; 82550; 84484; 85025; 85610; 87086; 87186; 93005; 93010; 99282-25

== ENCOUNTER 2018-07-21 00:41 | Inpatient (IN) | payer OTHER, BC ==
--- NOTE | 2018-07-21 00:51 | PDOC ---
Attending Attestation - HPI HPI: The patient is a 73 year old female, with a significant past medical history of ESRD(on dialysis M, W, F), diabetes, hypertension, hyperlipidemia, R BKA, L TMA , who presents to the emergency department for LLE pain and L foot (great toe ) bleeding. Patient states that yesterday she felt pain that radiated from her left foot and traveled up her leg. She noticed today that her left distal metatarsal began oozing some blood. She states that she does not remember trauma to the foot. She states that she normally ambulates with a wheelchair but did two laps with the walker around her apartment on with the physical therapist. She also notes that last week she was at [facility] and was told she had inflammation in her Pancreas. She states she is not currently on any antibiotics. The patient denies any falls or traumas. She denies any fever, chills, abdominal pain, diarrhea, nausea, vomiting. She denies any new numbness or tingling. Allergies: Levofloxacin Past Surgical History: RUE AV graft, BKA RLE Social History: Former smoker 45 year ago. PCP: Dr. Melgoza Vascular Surgeon: Dr. Weldon Registration Coordinator: Dr. Patricia Mcfarlane 07/21/18 01:31 - Physicial Exam PE: GENERAL: Awake, alert, and fully oriented, in no acute distress HEAD: No signs of trauma EYES: PERRLA, EOMI, sclera anicteric, conjunctiva clear ENT: Auricles normal inspection, hearing grossly normal, nares patent, oropharynx clear without exudates. Moist mucosa NECK: Normal ROM, supple, no lymphadenopathy, JVD, or masses LUNGS: Breath sounds equal, clear to auscultation bilaterally. No wheezes, and no crackles HEART: Regular rate and rhythm, normal S1 and S2, no murmurs, rubs or gallops ABDOMEN: Soft, nontender, normoactive bowel sounds. No guarding, no rebound. No masses EXTREMITIES: Right BKA. Left TMA. Left 1st distal metatarsal sloughed skin with minimal blood, no warmth, swelling or pain. Tenderness along left leg. NEUROLOGICAL: Cranial nerves II through XII grossly intact. Normal speech. SKIN: Left 1st distal metatarsal sloughed skin with minimal blood. Warm, Dry, normal turgor, no rashes or lesions noted. 07/21/18 01:31 <Tiny Ledesma - Last Filed: 07/21/18 01:31> - Resident Resident Name: Luis Eduardo Mcdonnell - ED Attending Attestation I have performed the following: I have examined & evaluated the patient, The case was reviewed & discussed with the resident, I agree w/resident's findings & plan - Medical Decision Making 07/21/18 01:15 Pt seems to have injured her foot when she walked down the hallway in their building 2 laps. Pt injured the left dostal metatarsal. 07/21/18 02:53 CBC is normal Sed rate and CRP are pending 07/21/18 03:09 Pt's CRP is high at 2.0 07/21/18 03:20 Pt's sed rate is elevated. She will be admitted for IV abx 07/21/18 03:27 We are paging the hospitalists 07/21/18 03:28 BUN/Cr elevated -pt has known ESRD, she is on HD on M,W,F <Ashleigh Goff - Last Filed: 07/21/18 03:43> Heart Score/ECG Review - ECG Intrepretation Rhythm: Regular Rhythm - [place]: Normal - P and CT Prominent R with upright T in V1 (true posterior WI): No Delta Wave(s) Present: No WPW: No - QRS Poor R Wave Progression: No Q Wave Present: No - ST and T Early Repolarization: Yes Non Specific ST-T Wave changes: No Flattened T Waves: No Prolonged Q-T Interval: No <Ashleigh Goff - Last Filed: 07/21/18 03:43>
[2018-07-21] MEDS ORDERED: CEFAZOLIN 1 GM in DEXTROSE 5%-WATER - 50 ML IVPB ONE (01:16)
[2018-07-21] MEDS ORDERED: ACETAMINOPHEN 325 MG TABLET (FP) PO ONE (01:16)
[2018-07-21] MEDS ORDERED: KETOROLAC TROMETHAMINE 30 MG/1 ML VIAL IVPUSH ONE (01:16)
--- NOTE | 2018-07-21 01:21 | PDOC ---
History of Present Illness <Ashleigh Goff - Last Filed: 07/21/18 03:28> - History of Present Illness Initial Comments: 07/21/18 01:15 73 yo F with h/o HTN, IDDM, HLD, ESRD ( Dialysis M/W/F), BKA RLE, Left toe amputations, osteomyelitis, who p/w left distal metatarsal lesion. Patient son at bedside to assist in report. Notes that patient with complaint of left big toe pain, and left vee pain today, when on wheelchair. Patient son states that patient had undergone physical therapy with walker yesterday, and typically is wheelchair bound at baseline. Patient now with sharp, pain at first metatrsal, with clear drainage. Patient reports applying topical Bacitracin. Patient does not produce urine. Last dialysis this pat Saturday (07/19/18). Patient denies N/V, palpitations, orthopnea, PND, F/C, cough, wheezing, leg swelling, CP, SOB, urinary complaints, abdominal pain, diarrhea, constipation, lightheadedness, weakness, sensory changes. PMHx: as noted above ROS: as noted SHx: Distant tobacco use x 40 years. Denies Etoh, IVDA Allergies: Levofloxacin PCP: Dr. Melgoza Vascular Surgeon: Fatemeh Sprayer Leather: Dr. Patricia Mcfarlane <Luis Eduardo Mcdonnell - Last Filed: 07/21/18 04:25> - General Stated Complaint: LEFT LEG OPEN WOUND/PAIN Time Seen by Provider: 07/21/18 00:50 Past History <Ashleigh Goff - Last Filed: 07/21/18 03:28> - Past Medical History Anemia: Yes Asthma: No Cancer: No Cardiac Disorders: No CVA: Yes (no residual deficit) COPD: No CHF: No DVT: No Dementia: No Diabetes: Yes Dialysis: Yes (hd t,t,sat, rt arm fistula, rt chest cath) GI Disorders: Yes (reflux) Disorders: No HTN: Yes Hypercholesterolemia: Yes Liver Disease: No Seizures: No Thyroid Disease: No - Surgical History Cholecystectomy: Yes Orthopedic Surgery: Yes (Right Leg BKA, Leg TMA) - Suicide/Smoking/Psychosocial Hx Smoking Status: No Smoking History: Never smoked Years of Tobacco Use: 30 Have you smoked in the past 12 months: No Number of Cigarettes Smoked Daily: 0 If you are a former smoker, when did you quit?: 1981 Information on smoking cessation initiated: No Hx Alcohol Use: No Drug/Substance Use Hx: No Substance Use Type: None Hx Substance Use Treatment: No <Luis Eduardo Mcdonnell - Last Filed: 07/21/18 04:25> - Past Medical History Allergies/Adverse Reactions: Allergies Allergy/AdvReac Type Severity Reaction Status Date / Time adhesive tape Allergy Intermediate Itching Verified 07/21/18 01:05 levofloxacin [From Levaquin] Allergy Unknown Verified 07/21/18 01:05 Home Medications: Ambulatory Orders Atorvastatin Ca [Lipitor] 10 mg PO HS #0 tablet 08/26/12 Acetaminophen [Tylenol] 325 mg PO ASDIR PRN 05/07/17 Amlodipine Besylate [Norvasc -] 5 mg PO DAILY 05/07/17 Carvedilol [Coreg -] 6.25 mg PO BID 05/07/17 Docusate Sodium [Dulcoease] 100 mg PO ASDIR 05/07/17 Sevelamer Carbonate [Renvela -] 2,400 mg PO CM 05/07/17 Insulin (Levemir) [Levemir Vial] 15 units SQ AM #100 ml MDD 1 05/10/17 Atorvastatin Ca [Lipitor] 10 mg PO HS #30 tablet 06/01/17 Ferrous Sulfate 325 mg PO DAILY 06/11/17 Folic Acid/Vit B Complex and C [Renal-Marga Tablet] 0.8 mg PO DAILY 06/11/17 Furosemide [Lasix -] 40 mg PO BID 06/11/17 Hydrochlorothiazide [Hctz -] 12.5 mg PO DAILY 06/12/17 oxyCODONE HCL [Roxicodone -] 5 mg PO Q6H PRN #20 tablet MDD 4 06/12/17 Oxycodone HCl 5 mg PO QID PRN #8 capsule MDD 4 07/22/17 Cephalexin Monohydrate [Keflex -] 500 mg PO Q8H #21 capsule 07/23/17 Nitrofurantoin Monohyd/M-Cryst [Macrobid -] 100 mg PO BID #14 capsule 07/26/17 Nitrofurantoin Macrocrystal [Nitrofurantoin] 100 mg PO BID #14 capsule 08/12/17 Review of Systems - Review of Systems Comments:: 07/21/18 01:33 GENERAL/CONSTITUTIONAL: No fever or chills. No weakness. HEAD, EYES, EARS, NOSE AND THROAT: No change in vision. No ear pain or discharge. No sore throat. CARDIOVASCULAR: No chest pain or shortness of breath RESPIRATORY: No cough, wheezing, or hemoptysis. GASTROINTESTINAL: No nausea, vomiting, diarrhea or constipation. GENITOURINARY: No dysuria, frequency, or change in urination. MUSCULOSKELETAL: + LLE Wound at first distal metatarsal. No joint or muscle swelling or pain. No neck or back pain. SKIN: No rash NEUROLOGIC: No headache, vertigo, loss of consciousness, or change in strength/ sensation. ENDOCRINE: No increased thirst. No abnormal weight change HEMATOLOGIC/LYMPHATIC: No anemia, easy bleeding, or history of blood clots. ALLERGIC/IMMUNOLOGIC: No hives or skin allergy. <Luis Eduardo Mcdonnell - Last Filed: 07/21/18 04:25> *Physical Exam - Vital Signs Last Vital Signs Temp Pulse Resp BP Pulse Ox 98.9 F 80 18 146/87 100 07/21/18 01:06 07/21/18 01:06 07/21/18 01:06 07/21/18 01:06 07/21/18 01:06 <Ashleigh Goff - Last Filed: 07/21/18 03:28> - Vital Signs Last Vital Signs Temp Pulse Resp BP Pulse Ox 98.9 F 80 18 146/87 100 07/21/18 01:06 07/21/18 01:06 07/21/18 01:06 07/21/18 01:06 07/21/18 01:06 - Physical Exam Comments: 07/21/18 01:26 GENERAL: Awake, alert, and fully oriented, in no acute distress HEAD: No signs of trauma, normocephalic, atraumatic EYES: PERRLA, EOMI, sclera anicteric, conjunctiva clear ENT: Hearing grossly normal, nares patent, oropharynx clear without exudates. Moist mucosa NECK: Normal ROM, supple, no lymphadenopathy, JVD, or masses LUNGS: No distress, speaks full sentences, clear to auscultation bilaterally HEART: Regular rate and rhythm, normal S1 and S2, no murmurs, rubs or gallops, peripheral pulses normal and equal bilaterally. ABDOMEN: Soft, nontender, normoactive bowel sounds. No guarding, no rebound. No masses EXTREMITIES : + RUE AV fistula , + RLE BTA, with prosthesis in place. + Left lower extremity with multiple phalanx amputations. + horizontal, 2 cm, partial thickness, abrasion at distal left 1st metatarsal, with serous discharge/ drainage. + L ant. distal tibial ttp, with absent overlying skin change, crepitus, bony deformity, bullae, streaking. No bony visualization. Normal range of motion, no edema. No clubbing or cyanosis. Able to palpate right sided PT pulse. Normal ROM LLE SKIN: Warm, Dry, normal turgor, no rashes or lesions noted <Luis Eduardo Mcdonnell - Last Filed: 07/21/18 04:25> Moderate Sedation - Procedure Monitoring Vital Signs: Procedure Monitoring Vital Signs Temperature 98.9 F 07/21/18 01:06 Pulse Rate 80 07/21/18 01:06 Respiratory Rate 18 07/21/18 01:06 Blood Pressure 146/87 07/21/18 01:06 O2 Sat by Pulse Oximetry (%) 100 07/21/18 01:06 <Ashleigh Goff - Last Filed: 07/21/18 03:28> - Procedure Monitoring Vital Signs: Procedure Monitoring Vital Signs Temperature 98.9 F 07/21/18 01:06 Pulse Rate 80 07/21/18 01:06 Respiratory Rate 18 07/21/18 01:06 Blood Pressure 146/87 07/21/18 01:06 O2 Sat by Pulse Oximetry (%) 100 07/21/18 01:06 <Luis Eduardo Mcdonnell - Last Filed: 07/21/18 04:25> ED Treatment Course - LABORATORY CBC & Chemistry Diagram: 07/21/18 01:50 07/21/18 01:50 - ADDITIONAL ORDERS Additional order review: Laboratory Results 07/21/18 07/21/18 07/21/18 01:50 01:50 01:50 PT with INR 12.10 INR 1.03 Sodium 137 Potassium 4.9 Chloride 98 Carbon Dioxide 30 Anion Gap 9 BUN 50 H Creatinine 7.6 H* Creat Clearance w eGFR 5.26 Random Glucose 146 H Calcium 9.4 Total Bilirubin 0.4 AST 21 ALT 38 Alkaline Phosphatase 336 H C-Reactive Protein 2.0 H Total Protein 7.2 Albumin 3.3 L 07/21/18 01:50 RBC 3.40 L MCV 86.1 MCHC 33.7 RDW 15.2 D MPV 10.0 D Neutrophils % 66.2 D Lymphocytes % 21.8 D Monocytes % 8.6 Eosinophils % 2.5 Basophils % 0.9 <Ashleigh Goff - Last Filed: 07/21/18 03:28> - LABORATORY CBC & Chemistry Diagram: 07/21/18 01:50 07/21/18 01:50 <Luis Eduardo Mcdonnell - Last Filed: 07/21/18 04:25> Medical Decision Making - Medical Decision Making 07/21/18 01:26 73 yo F with h/o HTN, IDDM, HLD, ESRD ( Dialysis M/W/F), BKA RLE, Left toe amputations, osteomyelitis, who p/w left distal metatarsal lesion. VSS, AF, A& Ox3. + horizontal, 2 cm, partial thickness, abrasion at distal left 1st metatarsal, with serous discharge/drainage. + L ant. distal tibial ttp, with absent overlying skin change, crepitus, bony deformity. LLE neurovasculalry intact. Will evaluate for osteomyelitis, nec. fasc, lymphangitis, cellulitis. Patient with known h/o osteo, multiple extremity amputations, poorly controlled diabetes. Although, no evidence of systemic infection, SIRS criteria, will admit for IV antibiotics, and pain control d/t high risk amputation, vasculopath. ED Course: CBC,CMP, ESR, CRP, BCx, UCx NS left foot RAD Ancef, NS, Tylenol 07/21/18 03:29 BUN/CR: 50/7.6 07/21/18 03:29 ESR: 62 CRP: 2.0 07/21/18 03:30 Plan to admit to med/surg inpt. osteomyleitis 07/21/18 03:42 Patient endorsed to Kayleigh Villagran. Admit to med/surg Ifudu <Luis Eduardo Mcdonnell - Last Filed: 07/21/18 04:25> *DC/Admit/Observation/Transfer <Ashleigh Goff - Last Filed: 07/21/18 03:28> - Discharge Dispostion Decision to Admit order: Yes - Attestations Physician Attestion: 07/21/18 03:32 I attest to the information provided in this note. <Luis Eduardo Mcdonnell - Last Filed: 07/21/18 04:25> Diagnosis at time of Disposition: ESRD (end stage renal disease) on dialysis Diabetic foot ulcer Qualifiers: Diabetic foot ulcer location: toe Diabetes mellitus type: type 2 Laterality: left Non-pressure ulcer stage: unspecified non-pressure ulcer stage Qualified Code(s): E11.621 - Type 2 diabetes mellitus with foot ulcer - Discharge Dispostion Condition at time of disposition: Stable
[2018-07-21 02:21] LABS: BASO % 0.9 % (0-2.0); EOS % 2.5 % (0-4.5); HEMATOCRIT 29.3 % (32.4-45.2); HEMOGLOBIN 9.9 GM/dL (10.7-15.3); LYMPH % 21.8 % (8-40); MCHC 33.7 g/dl (32.0-36.0); MEAN CELL VOLUME 86.1 fl (80-96); MONO % 8.6 % (3.8-10.2); NEUT % 66.2 % (42.8-82.8); PLATELET COUNT 248 K/MM3 (134-434); RDW 15.2 % (11.6-15.6); WHITE BLOOD COUNT 8.9 K/mm3 (4.0-10.0)
[2018-07-21 02:34] LABS: INR 1.03 (0.83-1.09); PROTHROMBIN TIME (PATIENT) 12.1 SEC (9.7-13.0)
[2018-07-21 02:59] LABS: ALBUMIN 3.3 g/dl (3.4-5.0); ALK PHOS 336 U/L (45-117); ANION GAP 9 MMOL/L (8-16); BILIRUBIN,TOTAL 0.4 mg/dL (0.2-1); BLOOD UREA NITROGEN 50 mg/dL (7-18); CALCIUM 9.4 mg/dL (8.5-10.1); CHLORIDE 98 mmol/L (98-107); CO2 30 mmol/L (21-32); GLUCOSE,RANDOM 146 mg/dL (74-106); POTASSIUM 4.9 mmol/L (3.5-5.1); SGOT/AST 21 U/L (15-37); SGPT/ALT 38 U/L (13-61); SODIUM 137 mmol/L (136-145); TOT PROT 7.2 g/dl (6.4-8.2)
[2018-07-21 03:01] LABS: CREATININE 7.6 mg/dL (0.55-1.3)
--- NOTE | 2018-07-21 03:47 | HP ---
Admitting History and Physical - Primary Care Physician PCP: Deep Melgoza - Admission Chief Complaint: Foot Pain, Diabetic Foot Ulcer History of Present Illness: This is a 73 y/o woman with a PMHx of ESRD (HD- Mo, We, Fr), Poorly Controlled DM, Chronic Foot Ulcer,Multiple Toe Amputations, Osteomyelitis. Who presents to the ED with left foot pain with serous drainage from the ulcer. Patient was unable to provide detailed HPI. Patient's son provided HPI to the ED: Patient son at bedside to assist in report. Notes that patient with complaint of left big toe pain, and left vee pain today, when on wheelchair. Patient son states that patient had undergone physical therapy with walker yesterday, and typically is wheelchair bound at baseline. Patient now with sharp, pain at first metatrsal, with clear drainage. Patient reports applying topical Bacitracin. Patient does not produce urine. Last dialysis this pat Saturday (07/19). Patient denies N/V, palpitations, orthopnea, PND, F/C, cough, wheezing, leg swelling, CP, SOB, urinary complaints, abdominal pain, diarrhea, constipation, lightheadedness, weakness, sensory changes. 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 Cardiovascular: Yes: HTN Renal/: Yes: Renal Failure, Hemodialysis Heme/Onc: Yes: Anemia Endocrine: Yes: Diabetes Mellitus - Past Surgical History Past Surgical History: Yes: AV Fistula/Graft (RT RT BKA AND LEFT TMA) - Smoking History Smoking history: Never smoked Have you smoked in the past 12 months: No Aproximately how many cigarettes per day: 0 If you are a former smoker, when did you quit?: 1981 - Alcohol/Substance Use Hx Alcohol Use: No History of Substance Use: reports: None - Social History Usual Living Arrangement: Yes: With Child ADL: Family Assistance History of Recent Travel: No Home Medications - Allergies Allergies/Adverse Reactions: Allergies Allergy/AdvReac Type Severity Reaction Status Date / Time adhesive tape Allergy Intermediate Itching Verified 07/21/18 01:05 levofloxacin [From Levaquin] Allergy Unknown Verified 07/21/18 01:05 - Home Medications Home Medications: Ambulatory Orders Atorvastatin Ca [Lipitor] 10 mg PO HS #0 tablet 08/26/12 Acetaminophen [Tylenol] 325 mg PO ASDIR PRN 05/07/17 Amlodipine Besylate [Norvasc -] 5 mg PO DAILY 05/07/17 Carvedilol [Coreg -] 6.25 mg PO BID 05/07/17 Docusate Sodium [Dulcoease] 100 mg PO ASDIR 05/07/17 Sevelamer Carbonate [Renvela -] 2,400 mg PO CM 05/07/17 Atorvastatin Ca [Lipitor] 10 mg PO HS #30 tablet 06/01/17 Ferrous Sulfate 325 mg PO DAILY 06/11/17 Folic Acid/Vit B Complex and C [Renal-Marga Tablet] 0.8 mg PO DAILY 06/11/17 Hydrochlorothiazide [Hctz -] 12.5 mg PO DAILY 06/12/17 oxyCODONE HCL [Roxicodone -] 5 mg PO Q6H PRN #20 tablet MDD 4 06/12/17 Family Disease History - Family Disease History Family Disease History: Diabetes: Mother Review of Systems - Review of Systems Constitutional: reports: No Symptoms Eyes: reports: No Symptoms HENT: reports: No Symptoms Neck: reports: No Symptoms Cardiovascular: reports: No Symptoms Respiratory: reports: No Symptoms Gastrointestinal: reports: No Symptoms Genitourinary: reports: No Symptoms Breasts: reports: No Symptoms Reported Musculoskeletal: reports: Extremity Pain (left foot pain) Neurological: reports: No Symptoms Endocrine: reports: No Symptoms Hematology/Lymphatic: reports: No Symptoms Psychiatric: reports: No Symptoms Physical Examination Vital Signs: Vital Signs Temperature 98.9 F 07/21/18 01:06 Pulse Rate 80 07/21/18 01:06 Respiratory Rate 18 07/21/18 01:06 Blood Pressure 146/87 07/21/18 01:06 O2 Sat by Pulse Oximetry (%) 100 07/21/18 01:06 Constitutional: Yes: No Distress, Calm, Obese Eyes: Yes: WNL, Conjunctiva Clear, EOM Intact, PERRL HENT: Yes: WNL, Atraumatic, Normocephalic Neck: Yes: WNL, Supple, Trachea Midline Cardiovascular: Yes: WNL, Regular Rate and Rhythm, S1, S2 Respiratory: Yes: WNL, Regular, CTA Bilaterally Gastrointestinal: Yes: WNL, Normal Bowel Sounds, Soft Breast(s): Yes: WNL Extremities: Yes: Other (R-BKA) Edema: No Peripheral Pulses: Left Doralis Pedis: 2+ Integumentary: Yes: Other (R-BKA L- Toes amputation) Wound/Incision: Yes: Other (+ horizontal, 2 cm, partial thickness, abrasion at distal left 1st metatarsal, with serous discharge/drainage. + L ant. distal tibial ttp, with absent overlying skin change, crepitus, bony deformity, bullae , streaking.) Neurological: Yes: Confusion, Cran Nerves II-XII Intact ...Motor Strength: LUE, LLE, RUE Psychiatric: Yes: Alert Labs: CBC, BMP 07/21/18 01:50 07/21/18 01:50 Laboratory Results - last 24 hr 07/21/18 07/21/18 07/21/18 01:50 01:50 01:50 WBC 8.9 RBC 3.40 L Hgb 9.9 L Hct 29.3 L MCV 86.1 MCH 29.0 MCHC 33.7 RDW 15.2 D Plt Count 248 D MPV 10.0 D Absolute Neuts (auto) 5.9 Neutrophils % 66.2 D Lymphocytes % 21.8 D Monocytes % 8.6 Eosinophils % 2.5 Basophils % 0.9 Nucleated RBC % 0 ESR PT with INR 12.10 INR 1.03 Sodium 137 Potassium 4.9 Chloride 98 Carbon Dioxide 30 Anion Gap 9 BUN 50 H Creatinine 7.6 H* Creat Clearance w eGFR 5.26 Random Glucose 146 H Calcium 9.4 Total Bilirubin 0.4 AST 21 ALT 38 Alkaline Phosphatase 336 H C-Reactive Protein Total Protein 7.2 Albumin 3.3 L 07/21/18 07/21/18 01:50 01:50 WBC RBC Hgb Hct MCV MCH MCHC RDW Plt Count MPV Absolute Neuts (auto) Neutrophils % Lymphocytes % Monocytes % Eosinophils % Basophils % Nucleated RBC % ESR 62 H PT with INR INR Sodium Potassium Chloride Carbon Dioxide Anion Gap BUN Creatinine Creat Clearance w eGFR Random Glucose Calcium Total Bilirubin AST ALT Alkaline Phosphatase C-Reactive Protein 2.0 H Total Protein Albumin Current Medications Generic Name Dose Route Start Last Admin Trade Name Freq PRN Reason Stop Dose Admin Amlodipine Besylate 5 mg 07/21/18 10:00 Norvasc - PO DAILY BLANCHE Atorvastatin Calcium 10 mg 07/21/18 22:00 Lipitor - PO HS [facility] Carvedilol 6.25 mg 07/21/18 10:00 Coreg - PO BID BLANCHE Docusate Sodium 100 mg 07/21/18 07:00 Colace - PO ASDIR BLANCHE Ferrous Sulfate 325 mg 07/21/18 10:00 Feosol - PO DAILY BLANCHE Piperacillin Sod/Tazobactam 50 mls @ 100 mls/hr 07/21/18 22:00 Sod 2.25 gm/ Dextrose IVPB BID BLANCHE Protocol Piperacillin Sod/Tazobactam 50 mls @ 100 mls/hr 07/21/18 10:00 Sod 2.25 gm/ Dextrose IVPB 07/21/18 10:29 ONCE ONE Protocol Multivit/Ca Carb/B Cmplx/FA/Prenat 1 tablet 07/21/18 10:00 Nephro-Marga - PO DAILY BLANCHE Sevelamer Carbonate 2,400 mg 07/21/18 08:00 Renvela - PO TIDCM BLANCHE Imaging - Results X-ray: Pending EKG: Image Reviewed (NSR 76 bpm, left axis deviation QT/QTc 384/432) Problem List - Problems (1) Diabetic foot ulcer Assessment/Plan: Hx Osteomyelitis Blood Cultures-pending Appreciate Vascular consult Appreciate ID consult Ancef given in ED Hx Klebseilla Oxytoca, Enterobacter Cloacae in foot wound, resistant to Ancef, sensitive to Zosyn Will start Zosyn renal dosing for broader coverage, until official report Xray L- foot r/o osteomyelitis-pending Consider MRI of L-foot Monitor CBC Monitor vitals Tylenol prn Code(s): E11.621 - TYPE 2 DIABETES MELLITUS WITH FOOT ULCER; L97.509 - NON- PRESSURE CHRONIC ULCER OTH PRT UNSP FOOT W UNSP SEVERITY Qualifiers: Diabetic foot ulcer location: toe Diabetes mellitus type: type 2 Laterality: left Non-pressure ulcer stage: unspecified non-pressure ulcer stage Qualified Code(s): E11.621 - Type 2 diabetes mellitus with foot ulcer; L97.529 - Non-pressure chronic ulcer of other part of left foot with unspecified severity (2) ESRD (end stage renal disease) on dialysis Assessment/Plan: HD (M,W,F) Appreciate Nephrology consult for HD management Renal Diet Avoid Nephrotoxic agents Code(s): N18.6 - END STAGE RENAL DISEASE; Z99.2 - DEPENDENCE ON RENAL DIALYSIS (3) Amputation of both lower extremities Assessment/Plan: secondary to poorly controlled DM Code(s): S88.911A - COMPLETE TRAUMATIC AMPUTATION OF R LOW LEG, LEVEL UNSP, INIT ; S88.912A - COMPLETE TRAUMATIC AMPUTATION OF L LOW LEG, LEVEL UNSP, INIT (4) HTN (hypertension) Assessment/Plan: Controlled Monitor BP Continue home meds Code(s): I10 - ESSENTIAL (PRIMARY) HYPERTENSION (5) Type 2 diabetes mellitus with retinopathy without macular edema Code(s): E11.319 - TYPE 2 DIABETES W UNSP DIABETIC RTNOP W/O MACULAR EDEMA Assessment/Plan This is a 73 y/o woman with a PMHx of ESRD (HD- M,W,F), Poorly Controlled DM, s/ p Amputations of L- Toes, Diabetic Foot Ulcer, Osteomyelitis, HTN. Admitted for Diabetic Foot Ulcer r/o Osteomyelitis for further evaluation of their emergent condition. Plan: FEN Fluid Restriction 1L Replete lytes prn Renal, Low Na, Diabetic Diet DVT ppx OOB SCDs Heparin SQ Dispo: Requires Inpatient Care Visit type - Emergency Visit Emergency Visit: Yes ED Registration Date: 07/21/18 Care time: The patient presented to the Emergency Department on the above date and was hospitalized for further evaluation of their emergent condition. - New Patient This patient is new to me today: Yes Date on this admission: 07/21/18 - Critical Care Critical Care patient: No
[2018-07-21] MEDS ORDERED: ACETAMINOPHEN 325 MG TABLET (FP) ONE (04:09)
[2018-07-21] MEDS ORDERED: CEFAZOLIN 1 GM/D5W 1 GM/50 ML BAG ONE (04:32)
[2018-07-21] MEDS ORDERED: morphine CARPU-JECT 2 MG/1 ML DISP.SYRIN IVPUSH ONE (06:35)
[2018-07-21] MEDS ORDERED: MORPHINE SULFATE 2 MG/ML VIAL ONE (06:39)
[2018-07-21] MEDS ORDERED: DOCUSATE SODIUM 100 MG CAPSULE (FP) PO SCH (07:00)
[2018-07-21] MEDS: SEVELAMER CARBONATE 800 MG TAB (FP) PO SCH ×3 (08:00→17:41)
--- NOTE | 2018-07-21 09:08 | CON.ID ---
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 she has no memory of the event as well she was recently seen in the ED at [facility]- she doesnot know why - History Source History Provided By: Medical Record Limitations to Obtaining History: Clinical Condition - Past Medical History 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 Cardio/Vascular: Yes: HTN Renal/: Yes: Renal Failure, Hemodialysis Endocrine: Yes: Diabetes Mellitus - Past Surgical History Past Surgical History: Yes: Amputation (right BKA, left TMA), AV Fistula/Graft ( RT RT BKA AND LEFT TMA) - Alcohol/Substance Use Hx Alcohol Use: No History of Substance Use: reports: None - Smoking History Smoking history: Never smoked Have you smoked in the past 12 months: No Aproximately how many cigarettes per day: 0 If you are a former smoker, when did you quit?: 1981 - Social History Usual Living Arrangement: Other (WILL LIVE NOW IN [place] WITH SON) ADL: Family Assistance History of Recent Travel: No Home Medications - Allergies Allergies/Adverse Reactions: Allergies Allergy/AdvReac Type Severity Reaction Status Date / Time adhesive tape Allergy Intermediate Itching Verified 07/21/18 01:05 levofloxacin [From Levaquin] Allergy Unknown Verified 07/21/18 01:05 - Home Medications Home Medications: Ambulatory Orders Atorvastatin Ca [Lipitor] 10 mg PO HS #0 tablet 08/26/12 Acetaminophen [Tylenol] 325 mg PO ASDIR PRN 05/07/17 Amlodipine Besylate [Norvasc -] 5 mg PO DAILY 05/07/17 Carvedilol [Coreg -] 6.25 mg PO BID 05/07/17 Docusate Sodium [Dulcoease] 100 mg PO ASDIR 05/07/17 Sevelamer Carbonate [Renvela -] 2,400 mg PO CM 05/07/17 Atorvastatin Ca [Lipitor] 10 mg PO HS #30 tablet 06/01/17 Ferrous Sulfate 325 mg PO DAILY 06/11/17 Folic Acid/Vit B Complex and C [Renal-Marga Tablet] 0.8 mg PO DAILY 06/11/17 Hydrochlorothiazide [Hctz -] 12.5 mg PO DAILY 06/12/17 oxyCODONE HCL [Roxicodone -] 5 mg PO Q6H PRN #20 tablet MDD 4 06/12/17 Family Disease History - Family Disease History Family Disease History: Diabetes: Mother Review of Systems - Review of Systems Constitutional: reports: No Symptoms. denies: Chills, Fever Eyes: reports: No Symptoms HENT: reports: No Symptoms Neck: reports: No Symptoms Cardiovascular: reports: No Symptoms Respiratory: reports: No Symptoms Gastrointestinal: reports: No Symptoms Genitourinary: reports: Other (anuric) Physical Exam Vital Signs: Vital Signs Temperature 98 F 07/21/18 07:25 Pulse Rate 74 07/21/18 07:25 Respiratory Rate 16 07/21/18 07:25 Blood Pressure 112/57 L 07/21/18 07:25 O2 Sat by Pulse Oximetry (%) 98 07/21/18 07:25 Constitutional: Yes: Well Nourished, No Distress, Calm Eyes: Yes: Conjunctiva Clear, EOM Intact HENT: Yes: Atraumatic, Normocephalic. No: Thrush Neck: Yes: Supple Cardiovascular: Yes: Regular Rate and Rhythm Respiratory: Yes: Regular, CTA Bilaterally Gastrointestinal: Yes: Normal Bowel Sounds Extremities: Yes: Other (right avf/graft, no erythema, right bka well healed + skin tear on tip of left TMA, no drainage, no erythema, shallow tear) Psychiatric: Yes: Alert Labs: CBC, BMP 07/21/18 01:50 07/21/18 01:50 Imaging - Results X-ray: Report Reviewed (no acute changes, no air, no swelling) Problem List - Problems (1) Skin tear of left lower leg without complication Code(s): S81.812A - LACERATION WITHOUT FOREIGN BODY, LEFT LOWER LEG, INIT ENCNTR (2) ESRD (end stage renal disease) on dialysis Code(s): N18.6 - END STAGE RENAL DISEASE; Z99.2 - DEPENDENCE ON RENAL DIALYSIS (3) Diabetes Code(s): E11.9 - TYPE 2 DIABETES MELLITUS WITHOUT COMPLICATIONS Assessment/Plan received cefazolin in ED clinically no signs of infections appears to have a skin tear would await surgery to see for reccommendaions for local wound care got cefazolin in ED this am no need for further antiibotics
[2018-07-21] MEDS: CARVEDILOL 6.25 MG TABLET (FP) PO SCH ×2 (09:52→22:33)
[2018-07-21] MEDS: FERROUS SO4 325 MG TABLET (FP) PO SCH (09:53)
[2018-07-21] MEDS: VITAMIN B COMP W-C 1 EA TABLET PO SCH (09:53)
[2018-07-21] MEDS: amLODIPine BESYLATE 5 MG TABLET (FP) PO SCH (09:53)
[2018-07-21] MEDS ORDERED: PIPERACILLIN/TAZOB 2.25 GM 2.25 GM in DEXTROSE 5%-WATER - 50 ML IVPB ONE (10:00)
--- NOTE | 2018-07-21 13:09 | CONSULT ---
<Kurt Langston - Last Filed: 07/21/18 15:39> - Consultation REQUESTING PROVIDER: CONSULT REQUEST: We have been asked to surgically evaluate this patient for ( ulcer at L tma site). PCP:Quang Snow HISTORY OF PRESENT ILLNESS: 73 y/o F w/ PMHx of ESRD (HD- Mo, We, Fr), Poorly Controlled DM, PVD s/p R BKA due to DM infection (2002), s/p L TMA with subsequent debridements x2( 2002;date ? EMR with foot xrays to 2011 with toes present), now presents to ED with left foot pain and new ulcer. Pt states her son noted and ulcer on her L foot yesterday morning while helping her dress. Came to ED for further evaluation. Is unsure how or when the ulcer began, however states she did not notice it on Saturday or Saturday. Reports starting PT recently to help her learn to walk with her prosthesis, is for the most part wheelchair bound. Denies fever/chills, n/v/d, cp/sob. Reports serous drainage from ulcer, no purulent drainage. Son has been applying Bacitracin ointment to the wound. At baseline, pt lives home with her son who is her primary caregiver. Requires assistance with ADLS. Follows in the office with Dr Weldon who she reports did a LE angiogram on her recently during an admission to [facility] for a CVA last month. Is a poor historian and is unable to provide further information regarding her recent admission to [facility]. PMHx: as stated above PSHx: RUE AVF revision/AVG placement for nonfunctioning AVF (Dr Weldon, 06/2017), x 2, Cholecystectomy (unsure of date) Home Medications Medication Instructions Recorded Atorvastatin Ca [Lipitor] 10 mg PO HS #0 tablet 08/26/12 Acetaminophen [Tylenol] 325 mg PO ASDIR PRN 05/07/17 Amlodipine Besylate [Norvasc -] 5 mg PO DAILY 05/07/17 Carvedilol [Coreg -] 6.25 mg PO BID 05/07/17 Docusate Sodium [Dulcoease] 100 mg PO ASDIR 05/07/17 Sevelamer Carbonate [Renvela -] 2,400 mg PO CM 05/07/17 Atorvastatin Ca [Lipitor] 10 mg PO HS #30 tablet 06/01/17 Ferrous Sulfate 325 mg PO DAILY 06/11/17 Folic Acid/Vit B Complex and C 0.8 mg PO DAILY 06/11/17 [Renal-Marga Tablet] Hydrochlorothiazide [Hctz -] 12.5 mg PO DAILY 06/12/17 oxyCODONE HCL [Roxicodone -] 5 mg PO Q6H PRN #20 tablet MDD 4 06/12/17 Allergies Allergy/AdvReac Type Severity Reaction Status Date / Time adhesive tape Allergy Intermediate Itching Verified 07/21/18 01:05 levofloxacin [From Levaquin] Allergy Unknown Verified 07/21/18 01:05 REVIEW OF SYSTEMS: CONSTITUTIONAL: Absent: fever, chills, diaphoresis CARDIOVASCULAR: Absent: chest pain, syncope RESPIRATORY: Absent: cough, shortness of breath GASTROINTESTINAL: Absent: abdominal pain PHYSICAL EXAM: GENERAL: Awake, alert, in no acute distress. HEAD: Normal with no signs of trauma. LUNGS: Clear to auscultation bilat anteriorly. No wheezes, and no crackles. No accessory muscle use. HEART: Regular rate and rhythm. Groin: b/l groins soft, no hematoma palpated LOWER EXTREMITIES: R BKA well healed with no ulcerations present. L TMA with approximately 2x2cm circular area of denuded skin overlying 1st metatarsal stump site. Wound clean based with no purulent drainage or foul odor. Small blister beneath this ulcer with serous drainage (not denuded). No edema. Vasc: Palpable femoral pulses b/l. Faint doppler signal at MARILYN, MANUFACTURING ENGINEER signal appreciated via doppler. Vital Signs Temperature 97.8 F 07/21/18 09:50 Pulse Rate 79 07/21/18 09:50 Respiratory Rate 16 07/21/18 09:50 Blood Pressure 131/59 L 07/21/18 09:50 O2 Sat by Pulse Oximetry (%) 98 07/21/18 09:50 Lab Results WBC 8.9 K/mm3 (4.0-10.0) 07/21/18 01:50 RBC 3.40 M/mm3 (3.60-5.2) L 07/21/18 01:50 Hgb 9.9 GM/dL (10.7-15.3) L 07/21/18 01:50 Hct 29.3 % (32.4-45.2) L 07/21/18 01:50 MCV 86.1 fl (80-96) 07/21/18 01:50 MCHC 33.7 g/dl (32.0-36.0) 07/21/18 01:50 RDW 15.2 % (11.6-15.6) D 07/21/18 01:50 Plt Count 248 K/MM3 (134-434) D 07/21/18 01:50 Sodium 137 mmol/L (136-145) 07/21/18 01:50 Potassium 4.9 mmol/L (3.5-5.1) 07/21/18 01:50 Chloride 98 mmol/L (98-107) 07/21/18 01:50 Carbon Dioxide 30 mmol/L (21-32) 07/21/18 01:50 Anion Gap 9 MMOL/L (8-16) 07/21/18 01:50 BUN 50 mg/dL (7-18) H 07/21/18 01:50 Creatinine 7.6 mg/dL (0.55-1.3) H* 07/21/18 01:50 Random Glucose 146 mg/dL (74-106) H 07/21/18 01:50 Calcium 9.4 mg/dL (8.5-10.1) 07/21/18 01:50 INR 1.03 (0.83-1.09) 07/21/18 01:50 A/P: 73 y/o F w/ PMHx of ESRD (HD- Mo, We, Fr), Poorly Controlled DM, PVD s/p R BKA due to DM infection, s/p L TMA with subsequent debridements x2 in the past, now presents to ED with left foot pain and new ulcer. Xray without any suspicion of osteomyelitis. Clinically no signs of infection. -Recommend Bacitracin ointment to L foot ulcer, cover with 4x4 and kerlix ( change daily) -No abx per ID -Pt should follow up with Dr Weldon in the office later this week d/w attending, Dr Weldon <Michi Weldon - Last Filed: 07/24/18 18:26> - Consultation REQUESTING PROVIDER: CONSULT REQUEST: We have been asked to surgically evaluate this patient for ( specify). PCP:Quang Snow HISTORY OF PRESENT ILLNESS: PMHx: PSHx: Home Medications Medication Instructions Recorded Acetaminophen [Tylenol] 325 mg PO ASDIR PRN 05/07/17 Amlodipine Besylate [Norvasc -] 5 mg PO DAILY 05/07/17 Carvedilol [Coreg -] 6.25 mg PO BID 05/07/17 Docusate Sodium [Dulcoease] 100 mg PO ASDIR 05/07/17 Sevelamer Carbonate [Renvela -] 2,400 mg PO CM 05/07/17 Atorvastatin Ca [Lipitor] 10 mg PO HS #30 tablet 06/01/17 Ferrous Sulfate 325 mg PO DAILY 06/11/17 Folic Acid/Vit B Complex and C 0.8 mg PO DAILY 06/11/17 [Renal-Marga Tablet] Hydrochlorothiazide [Hctz -] 12.5 mg PO DAILY 06/12/17 oxyCODONE HCL [Roxicodone -] 5 mg PO Q6H PRN #20 tablet MDD 4 06/12/17 Acetaminophen [Tylenol 500 mg PO Q6H PRN tablet 07/23/18 .Extra-Strength -] Bacitracin - [Bacitracin Topical 1 applic TP DAILY tube 07/23/18 Ointment -] Gabapentin [Neurontin -] 100 mg PO BID capsule 07/23/18 Allergies Allergy/AdvReac Type Severity Reaction Status Date / Time adhesive tape Allergy Intermediate Itching Verified 07/21/18 01:05 levofloxacin [From Levaquin] Allergy Unknown Verified 07/21/18 01:05 REVIEW OF SYSTEMS: CONSTITUTIONAL: Absent: fever, chills, diaphoresis, generalized weakness, malaise, loss of appetite, weight change CARDIOVASCULAR: Absent: chest pain, syncope, palpitations, irregular heart rate, lightheadedness , peripheral edema RESPIRATORY: Absent: cough, shortness of breath, dyspnea with exertion, wheezing, stridor, hemoptysis GASTROINTESTINAL: Absent: abdominal pain, abdominal distension, nausea, vomiting, diarrhea, constipation, melena, hematochezia GENITOURINARY: Absent: dysuria, frequency, urgency, hesitancy, hematuria, flank pain, genital pain MUSCULOSKELETAL: Absent: myalgia, arthralgia, joint swelling, back pain, neck pain SKIN: Absent: rash, itching, pallor HEMATOLOGIC/IMMUNOLOGIC: Absent: easy bleeding, easy bruising, lymphadenopathy NEUROLOGIC: Absent: headache, focal weakness, paresthesias, dizziness, unsteady gait, seizure, mental status changes, bladder or bowel incontinence PSYCHIATRIC: Absent: anxiety, depression, suicidal or homicidal ideation, hallucinations. PHYSICAL EXAM: GENERAL: Awake, alert, and fully oriented, in no acute distress. HEAD: Normal with no signs of trauma. EYES: PERRL, sclera anicteric, conjunctiva clear. NECK: Normal ROM, supple without lymphadenopathy, JVD, or masses. LUNGS: Clear to auscultation bilat anteriorly. No wheezes, and no crackles. No accessory muscle use. HEART: Regular rate and rhythm. No murmurs ABDOMEN: Soft, nontender, not distended, normoactive bowel sounds, no guarding, no rebound, no masses. No organomegaly. MUSCULOSKELETAL: Normal ROM at all joints. No bony deformities or tenderness. No CVA tenderness. UPPER EXTREMITIES: 2+ pulses, warm, well-perfused. No cyanosis. Cap refill <2 seconds. No peripheral edema. LOWER EXTREMITIES: 2+ pulses, warm, well-perfused. No calf tenderness. No peripheral edema. NEUROLOGICAL: Normal speech, gait not observed. PSYCH: Cooperative. Good eye contact. Appropriate mood and affect. SKIN: Warm, dry, normal turgor, no rashes or lesions noted. Vital Signs Temperature 98.2 F 07/24/18 14:43 Pulse Rate 70 07/24/18 14:43 Respiratory Rate 18 07/24/18 14:43 Blood Pressure 126/53 L 07/24/18 14:43 O2 Sat by Pulse Oximetry (%) 94 L 07/24/18 09:00 Lab Results WBC 8.6 K/mm3 (4.0-10.0) 07/23/18 09:40 RBC 3.08 M/mm3 (3.60-5.2) L 07/23/18 09:40 Hgb 9.1 GM/dL (10.7-15.3) L 07/23/18 09:40 Hct 26.9 % (32.4-45.2) L 07/23/18 09:40 MCV 87.2 fl (80-96) 07/23/18 09:40 MCHC 33.7 g/dl (32.0-36.0) 07/23/18 09:40 RDW 15.2 % (11.6-15.6) 07/23/18 09:40 Plt Count 237 K/MM3 (134-434) 07/23/18 09:40 Sodium 141 mmol/L (136-145) 07/23/18 09:40 Potassium 4.7 mmol/L (3.5-5.1) 07/23/18 09:40 Chloride 101 mmol/L (98-107) 07/23/18 09:40 Carbon Dioxide 30 mmol/L (21-32) 07/23/18 09:40 Anion Gap 10 MMOL/L (8-16) 07/23/18 09:40 BUN 45 mg/dL (7-18) H 07/23/18 09:40 Creatinine 7.0 mg/dL (0.55-1.3) H 07/23/18 09:40 Random Glucose 148 mg/dL (74-106) H 07/23/18 09:40 Calcium 9.0 mg/dL (8.5-10.1) 07/23/18 09:40 INR 1.03 (0.83-1.09) 07/21/18 01:50 History reviewed, patient examined. Small superficial wound on tip of partially amputated 1st toe. Most recent intervention with revascularization of left popliteal and posterior tibial arteries. there is severe calcific arterial disease in the distal vessels. Continue local care. i will follow in my office.
--- NOTE | 2018-07-21 14:43 | PN ---
Progress Note, Physician Chief Complaint: patient seen and examined complaining of foot pain - Current Medication List Current Medications: Active Medications Amlodipine Besylate (Norvasc -) 5 mg PO DAILY [facility] Last Admin: 07/21/18 09:53 Dose: 5 mg Atorvastatin Calcium (Lipitor -) 10 mg PO [facility] Carvedilol (Coreg -) 6.25 mg PO BID [facility] Last Admin: 07/21/18 09:52 Dose: 6.25 mg Docusate Sodium (Colace -) 100 mg PO DAILY [facility] Ferrous Sulfate (Feosol -) 325 mg PO DAILY [facility] Last Admin: 07/21/18 09:53 Dose: 325 mg Multivit/Ca Carb/B Cmplx/FA/Prenat (Nephro-Marga -) 1 tablet PO DAILY [facility] Last Admin: 07/21/18 09:53 Dose: 1 tablet Sevelamer Carbonate (Renvela -) 2,400 mg PO TIDCM [facility] Last Admin: 07/21/18 08:00 Dose: 2,400 mg - Objective Vital Signs: Vital Signs Temperature 97.8 F 07/21/18 09:50 Pulse Rate 79 07/21/18 09:50 Respiratory Rate 16 07/21/18 09:50 Blood Pressure 131/59 L 07/21/18 09:50 O2 Sat by Pulse Oximetry (%) 98 07/21/18 09:50 Constitutional: Yes: Calm Cardiovascular: Yes: Regular Rate and Rhythm, S1, S2, Other Respiratory: Yes: CTA Bilaterally Gastrointestinal: Yes: Normal Bowel Sounds, Soft Musculoskeletal: Yes: Other (right TMA on left júnior skin tear) Neurological: Yes: Alert, Oriented Labs: CBC, BMP 07/21/18 01:50 07/21/18 01:50 INR, PTT INR 1.03 (0.83-1.09) 07/21/18 01:50 Problem List - Problems (1) Skin tear of left lower leg without complication Assessment/Plan: surgical consult- bacitracin to left foot with kerlix ID saw patient no further abx Code(s): S81.812A - LACERATION WITHOUT FOREIGN BODY, LEFT LOWER LEG, INIT ENCNTR (2) ESRD (end stage renal disease) on dialysis Assessment/Plan: HD per renal Code(s): N18.6 - END STAGE RENAL DISEASE; Z99.2 - DEPENDENCE ON RENAL DIALYSIS (3) Diabetes Assessment/Plan: bgm sliding scale [id number] endocrine eval Code(s): E11.9 - TYPE 2 DIABETES MELLITUS WITHOUT COMPLICATIONS (4) HTN (hypertension) Assessment/Plan: [facility] coreg Code(s): I10 - ESSENTIAL (PRIMARY) HYPERTENSION
--- NOTE | 2018-07-21 15:17 | EKG ---
Test Reason : Blood Pressure : / mmHG Vent. Rate : 076 BPM Atrial Rate : 076 BPM P-R Int : 158 ms QRS Dur : 086 ms QT Int : 384 ms P-R-T Axes : 068 -32 045 degrees QTc Int : 432 ms NORMAL SINUS RHYTHM LEFT AXIS DEVIATION MODERATE VOLTAGE CRITERIA FOR LVH, MAY BE NORMAL VARIANT ABNORMAL ECG WHEN COMPARED WITH ECG OF 22-JUL-2017 19:39, NO SIGNIFICANT CHANGE WAS FOUND Confirmed by JUNE MONGE, SHANTELL ([id number]) on 07/21/2018 3:17:06 PM Referred By: Confirmed By:SHANTELL WATKINS MD
--- NOTE | 2018-07-21 18:58 | PN ---
Progress Note (short form) - Note Progress Note: RENAL 73 WITH DM HTN ESRD PVD RT BKD LEFT TMA IN WITH A SKIN TEAROF THE LEFT TMA NO INFECTION XRAY AND ALL LABS AND NOTES REVIEWED PAIN FREE NOW SEEN AT HD F160 2.5 HR K2 CA2.5 [facility] 1.5 KG HB 9.9 EPO 5K GOT ONE DOSE ABX IN ER NO FURTHER ABX DC WITH LOCAL WOUND CARE WAS ADMITTED TO [facility] WITH ABD PAIN A WEEK PAIN PAIN FREE NOW EATING NORMALLY
[2018-07-21] MEDS ORDERED: EPOETIN ALFA 2,000 UNIT, EPOETIN ALFA 3,000 UNIT IVPUSH ONE (19:45)
[2018-07-21] MEDS ORDERED: PIPERACILLIN/TAZOB 2.25 GM 2.25 GM in DEXTROSE 5%-WATER - 50 ML IVPB SCH (22:00)
[2018-07-21] MEDS: GABAPENTIN 100 MG CAPSULE (FP) PO SCH ×2 (22:05→22:33)
[2018-07-21] MEDS: ATORVASTATIN CA 10 MG TABLET (FP) PO SCH (22:33)
[2018-07-22 00:20] VITALS: BMI 24.6
[2018-07-22] MEDS: BACITRACIN 15 GM TUBE TOPICAL OINTMENT TP SCH ×2 (06:17→13:02)
--- NOTE | 2018-07-22 08:45 | PN ---
Progress Note, Physician - Current Medication List Current Medications: Active Medications Acetaminophen (Tylenol -) 500 mg PO Q6H PRN PRN Reason: PAIN LEVEL 4 - 6 Amlodipine Besylate (Norvasc -) 5 mg PO DAILY [facility] Last Admin: 07/21/18 09:53 Dose: 5 mg Atorvastatin Calcium (Lipitor -) 10 mg PO HS [facility] Last Admin: 07/21/18 22:33 Dose: 10 mg Bacitracin (Bacitracin -) 1 applic TP DAILY [facility] Last Admin: 07/22/18 06:17 Dose: 1 applic Carvedilol (Coreg -) 6.25 mg PO BID [facility] Last Admin: 07/21/18 22:33 Dose: 6.25 mg Docusate Sodium (Colace -) 100 mg PO DAILY [facility] Ferrous Sulfate (Feosol -) 325 mg PO DAILY [facility] Last Admin: 07/21/18 09:53 Dose: 325 mg Gabapentin (Neurontin -) 100 mg PO BID [facility] Last Admin: 07/21/18 22:33 Dose: 100 mg Multivit/Ca Carb/B Cmplx/FA/Prenat (Nephro-Marga -) 1 tablet PO DAILY [facility] Last Admin: 07/21/18 09:53 Dose: 1 tablet Sevelamer Carbonate (Renvela -) 2,400 mg PO TIDCM [facility] Last Admin: 07/21/18 17:41 Dose: Not Given - Objective Vital Signs: Vital Signs Temperature 98.7 F 07/22/18 07:11 Pulse Rate 87 07/22/18 07:11 Respiratory Rate 20 07/22/18 07:11 Blood Pressure 158/75 07/22/18 07:11 O2 Sat by Pulse Oximetry (%) 95 07/21/18 17:54 Cardiovascular: Yes: S1, S2 Respiratory: Yes: Regular, CTA Bilaterally Gastrointestinal: Yes: Normal Bowel Sounds, Soft Extremities: Yes: Amputation Wound/Incision: Yes: Dressing Removed, Other (skin off tip of toe--not warm--no drainage) Labs: CBC, BMP 07/21/18 01:50 07/21/18 01:50 INR, PTT INR 1.03 (0.83-1.09) 07/21/18 01:50 Problem List - Problems (1) Confusion Assessment/Plan: --Establish baseline neuro Code(s): R41.0 - DISORIENTATION, UNSPECIFIED (2) ESRD (end stage renal disease) on dialysis Assessment/Plan: per renal Code(s): N18.6 - END STAGE RENAL DISEASE; Z99.2 - DEPENDENCE ON RENAL DIALYSIS (3) Skin tear of left lower leg without complication Assessment/Plan: id and surgical consults noted local care Code(s): S81.812A - LACERATION WITHOUT FOREIGN BODY, LEFT LOWER LEG, INIT ENCNTR (4) HTN (hypertension) Code(s): I10 - ESSENTIAL (PRIMARY) HYPERTENSION (5) Type 2 diabetes mellitus with retinopathy without macular edema Assessment/Plan: bgm Code(s): E11.319 - TYPE 2 DIABETES W UNSP DIABETIC RTNOP W/O MACULAR EDEMA
[2018-07-22] MEDS ORDERED: PT OWN MED DRAWER 7, Y5N ONE (09:42)
[2018-07-22] MEDS: VITAMIN B COMP W-C 1 EA TABLET PO SCH (09:57)
[2018-07-22] MEDS: CARVEDILOL 6.25 MG TABLET (FP) PO SCH ×2 (09:57→21:38)
[2018-07-22] MEDS: amLODIPine BESYLATE 5 MG TABLET (FP) PO SCH (09:57)
[2018-07-22] MEDS: FERROUS SO4 325 MG TABLET (FP) PO SCH (09:57)
[2018-07-22] MEDS: SEVELAMER CARBONATE 800 MG TAB (FP) PO SCH ×3 (09:57→17:39)
[2018-07-22] MEDS: GABAPENTIN 100 MG CAPSULE (FP) PO SCH ×2 (09:57→21:38)
[2018-07-22] MEDS: DOCUSATE SODIUM 100 MG CAPSULE (FP) PO SCH (09:57)
[2018-07-22] MEDS: ACETAMINOPHEN 500 MG TABLET (FP) PO PRN (13:10)
--- NOTE | 2018-07-22 18:16 | CONSULT ---
Consult - text type - Consultation Consultation Note: NEUROLOGY CONSULTATION is greatly appreciated: This 73 yo woman lives with her son. PMH sig for HTN, DM, Chol, ASVD, s/p stents and ESRD on HD M, W, F. Recent admission to [place] for "stoke" (which patient denies at this time. Pt had LE angiogram at that time. Maintained on: Atorvastatin; Amlodipine; Carvedilol; Renvela; Insulin; Ferrous Sulfate; Lasix; Hctz; Oxycodone; Cephalexin; and Nitrofurantoin. Now admitted with a painful, oozing, toe ulcer. Patient received Piperacillin x 1 dose 07/21, then D/C'ed. Pt complains she "can't hold things in her hands. Cr/BUN=7.6/50. CRP=2.0mg%, ESR=62 mm/hr. SOPHIE: No evidence of head trauma. No carotid bruits. Left foot bandaged and not examined. S/P R BKA. NEURO: Awake, alert. [facility], Jul, 2017. Trnancy. Recalls 2 of 3 at 3 mins. No frontal release findings Speech: Sl dysarthric but fluent. CN II-XII: Decreased vision but full robbins. Left facial swelling? Decreased tongue MARY GRACE's. Gag OK Motor: No drift but dramatic Myoclonic jerks cause arms to lose postural control. Grasps 4/5 B/L. Reduced MARY GRACE's Left leg strength normal. Areflexic. Left plantar silent. Coord: FTN disrupted by myoclonus Sensory: Reduced vibration and touch to the mid calf. IMP: 1. Mild B/L cerebral dysfunction (OMS, chronic) 2. Toxic-metabolic encephalopathy with Myoclonic Jerks (Uremia, infection , hyperammonemia, etc.) 3. No obvious focality to suggest major stroke, although there may be a significant microvascular component to the underlying OMS. 4. Diabetic/uremic peripheral neuropathy. SUGGEST: Reexamine after HD for decreased myoclonus. Check Mg++, Ammonia, B12, TSH, RPR Continue surveillance for infection. CT of head or MRI (C-) Thank you very much, Bennie Michaud MD
[2018-07-22] MEDS: ATORVASTATIN CA 10 MG TABLET (FP) PO SCH (21:38)
[2018-07-23 08:28] LABS: MAGNESIUM 2.4 mg/dL (1.8-2.4)
[2018-07-23] MEDS: SEVELAMER CARBONATE 800 MG TAB (FP) PO SCH ×3 (08:53→18:19)
--- NOTE | 2018-07-23 09:19 | DS ---
Physical Examination Vital Signs: Vital Signs Temperature 98.5 F 07/23/18 06:00 Pulse Rate 65 07/23/18 06:00 Respiratory Rate 20 07/23/18 06:00 Blood Pressure 105/54 L 07/23/18 06:00 O2 Sat by Pulse Oximetry (%) 94 L 07/22/18 21:00 Cardiovascular: Yes: S1, S2 Respiratory: Yes: Regular, CTA Bilaterally Gastrointestinal: Yes: Normal Bowel Sounds, Soft Neurological: Yes: Alert, Oriented Labs: CBC, BMP 07/21/18 01:50 07/21/18 01:50 Discharge Summary Reason For Visit: DIABETIC FOOT ULCER, END STAGE RENAL FAILURE ON Current Active Problems Confusion (Acute) Diabetes (Acute) Diabetic foot ulcer (Acute) ESRD (end stage renal disease) on dialysis (Acute) Skin tear of left lower leg without complication (Acute) Hospital Course: - Problems (1) Confusion Assessment/Plan: -MUCH IMPROVED -neuro noted Code(s): R41.0 - DISORIENTATION, UNSPECIFIED (2) ESRD (end stage renal disease) on dialysis Assessment/Plan: per renal Code(s): N18.6 - END STAGE RENAL DISEASE; Z99.2 - DEPENDENCE ON RENAL DIALYSIS (3) Skin tear of left lower leg without complication Assessment/Plan: id and surgical consults noted local care Code(s): S81.812A - LACERATION WITHOUT FOREIGN BODY, LEFT LOWER LEG, INIT ENCNTR (4) HTN (hypertension) Code(s): I10 - ESSENTIAL (PRIMARY) HYPERTENSION (5) Type 2 diabetes mellitus with retinopathy without macular edema Assessment/Plan: bgm Code(s): E11.319 - TYPE 2 DIABETES W UNSP DIABETIC RTNOP W/O MACULAR EDEMA IF MRI NEGATIVE THEN DC HOME Condition: Stable - Instructions Referrals: Deep Melgoza MD [Primary Care Provider] - 1 Week Deep Briseno MD [Non Staff, Medical] - - Home Medications Comprehensive Discharge Medication List: Ambulatory Orders Acetaminophen [Tylenol] 325 mg PO ASDIR PRN 05/07/17 Amlodipine Besylate [Norvasc -] 5 mg PO DAILY 05/07/17 Carvedilol [Coreg -] 6.25 mg PO BID 05/07/17 Docusate Sodium [Dulcoease] 100 mg PO ASDIR 05/07/17 Sevelamer Carbonate [Renvela -] 2,400 mg PO CM 05/07/17 Atorvastatin Ca [Lipitor] 10 mg PO HS #30 tablet 06/01/17 Ferrous Sulfate 325 mg PO DAILY 06/11/17 Folic Acid/Vit B Complex and C [Renal-Marga Tablet] 0.8 mg PO DAILY 06/11/17 Hydrochlorothiazide [Hctz -] 12.5 mg PO DAILY 06/12/17 oxyCODONE HCL [Roxicodone -] 5 mg PO Q6H PRN #20 tablet MDD 4 06/12/17 Acetaminophen [Tylenol .Extra-Strength -] 500 mg PO Q6H PRN tablet 07/23/18 Bacitracin - [Bacitracin Topical Ointment -] 1 applic TP DAILY tube 07/23/18 Gabapentin [Neurontin -] 100 mg PO BID capsule 07/23/18
[2018-07-23 09:51] LABS: BASO % 0.6 % (0-2.0); EOS % 3.8 % (0-4.5); HEMATOCRIT 26.9 % (32.4-45.2); HEMOGLOBIN 9.1 GM/dL (10.7-15.3); LYMPH % 22.1 % (8-40); MCH 29.4 pg (25.7-33.7); MCHC 33.7 g/dl (32.0-36.0); MEAN CELL VOLUME 87.2 fl (80-96); MEAN PLT VOLUME 8.9 fl (7.5-11.1); MONO % 8.7 % (3.8-10.2); NEUT % 64.8 % (42.8-82.8); PLATELET COUNT 237 K/MM3 (134-434); RBC 3.08 M/mm3 (3.60-5.2); RDW 15.2 % (11.6-15.6); WHITE BLOOD COUNT 8.6 K/mm3 (4.0-10.0)
[2018-07-23 10:33] LABS: ALBUMIN 2.8 g/dl (3.4-5.0); ALK PHOS 254 U/L (45-117); ANION GAP 10 MMOL/L (8-16); BILIRUBIN,TOTAL 0.3 mg/dL (0.2-1); BLOOD UREA NITROGEN 45 mg/dL (7-18); CHLORIDE 101 mmol/L (98-107); CO2 30 mmol/L (21-32); GLUCOSE,RANDOM 148 mg/dL (74-106); POTASSIUM 4.7 mmol/L (3.5-5.1); SGOT/AST 12 U/L (15-37); SGPT/ALT 8 U/L (13-61); SODIUM 141 mmol/L (136-145); TOT PROT 6.2 g/dl (6.4-8.2)
[2018-07-23] MEDS ORDERED: PT OWN MED DRAWER 7, Y5N ONE (10:33)
[2018-07-23] MEDS: FERROUS SO4 325 MG TABLET (FP) PO SCH (10:45)
[2018-07-23] MEDS: DOCUSATE SODIUM 100 MG CAPSULE (FP) PO SCH (10:45)
[2018-07-23] MEDS: BACITRACIN 15 GM TUBE TOPICAL OINTMENT TP SCH (10:46)
[2018-07-23] MEDS: VITAMIN B COMP W-C 1 EA TABLET PO SCH (10:46)
[2018-07-23] MEDS: CARVEDILOL 6.25 MG TABLET (FP) PO SCH ×2 (10:46→22:00)
[2018-07-23] MEDS: amLODIPine BESYLATE 5 MG TABLET (FP) PO SCH (10:46)
[2018-07-23] MEDS: GABAPENTIN 100 MG CAPSULE (FP) PO SCH (10:46)
[2018-07-23] MEDS ORDERED: EPOETIN ALFA 3,000 UNIT, EPOETIN ALFA 2,000 UNIT IVPUSH ONE (12:00)
[2018-07-23] MEDS ORDERED: ASPIRIN 325 MG TABLET PO ONE (14:38)
--- NOTE | 2018-07-23 16:11 | CON.CARD ---
Consult Consult Specialty:: Cardiology Referred by:: Dr. Snow Reason for Consultation:: CVA - History of Present Illness Chief Complaint: L foot pain, AMS History of Present Illness: 73 year old woman with pmh ESRD (HD- Mo, We, Fr), Poorly Controlled DM, Chronic Foot Ulcer,Multiple Toe Amputations, Osteomyelitis admitted with c/o foot pain and noted to have AMS and found to have multiple CVAs chronic, acute/subacute on MRI. recent admission at [facility] for CVA pt seen and examined in HD in nad. denies any palpitations, chest pain, sob. 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: Yes: Peripheral Neuropathy Cardio/Vascular: Yes: HTN Renal/: Yes: Renal Failure, Hemodialysis ...: No Endocrine: Yes: Diabetes Mellitus - Past Surgical History Past Surgical History: Yes: Amputation (right BKA, left TMA), AV Fistula/Graft ( RT RT BKA AND LEFT TMA) - Alcohol/Substance Use Hx Alcohol Use: No History of Substance Use: reports: None - Smoking History Smoking history: Never smoked Have you smoked in the past 12 months: No Aproximately how many cigarettes per day: 0 If you are a former smoker, when did you quit?: 1981 - Social History Usual Living Arrangement: Other (WILL LIVE NOW IN [place] WITH SON) ADL: Family Assistance History of Recent Travel: No Home Medications - Allergies Allergies/Adverse Reactions: Allergies Allergy/AdvReac Type Severity Reaction Status Date / Time adhesive tape Allergy Intermediate Itching Verified 07/21/18 01:05 levofloxacin [From Levaquin] Allergy Unknown Verified 07/21/18 01:05 - Home Medications Home Medications: Ambulatory Orders Acetaminophen [Tylenol] 325 mg PO ASDIR PRN 05/07/17 Amlodipine Besylate [Norvasc -] 5 mg PO DAILY 05/07/17 Carvedilol [Coreg -] 6.25 mg PO BID 05/07/17 Docusate Sodium [Dulcoease] 100 mg PO ASDIR 05/07/17 Sevelamer Carbonate [Renvela -] 2,400 mg PO CM 05/07/17 Atorvastatin Ca [Lipitor] 10 mg PO HS #30 tablet 06/01/17 Ferrous Sulfate 325 mg PO DAILY 06/11/17 Folic Acid/Vit B Complex and C [Renal-Marga Tablet] 0.8 mg PO DAILY 06/11/17 Hydrochlorothiazide [Hctz -] 12.5 mg PO DAILY 06/12/17 oxyCODONE HCL [Roxicodone -] 5 mg PO Q6H PRN #20 tablet MDD 4 06/12/17 Acetaminophen [Tylenol .Extra-Strength -] 500 mg PO Q6H PRN tablet 07/23/18 Bacitracin - [Bacitracin Topical Ointment -] 1 applic TP DAILY tube 07/23/18 Gabapentin [Neurontin -] 100 mg PO BID capsule 07/23/18 Family Disease History - Family Disease History Family Disease History: Diabetes: Mother Review of Systems - Review of Systems Constitutional: denies: No Symptoms, Chills, Diaphoresis, Fever, Lethargy, Loss of Appetite, Malaise, Night Sweats, Unintentional Wgt. Loss, Weakness, Other Eyes: denies: No Symptoms, Blind Spots, Blurred Vision, Double Vision, Eye Pain , Floaters, Photophobia, Recent Change in Vision, Other HENT: denies: No Symptoms, Difficult Swallowing, Ear Discharge, Ear Pain, Epistaxis, Gingival Bleeding, Hearing Loss, Mouth Swelling, Nasal Congestion, Ocular Prosthesis, Throat Pain, Toothache, Ringing in Ears, Other Neck: denies: No Symptoms, Decreased ROM, Lumps, Pain on Movement, Stiffness, Swollen Glands, Tenderness, Other Cardiovascular: denies: No Symptoms, Chest Pain, Edema, Palpitations, Shortness of Breath, Other Respiratory: denies: No Symptoms, Cough, Exercise Intolerance, Hemoptysis, Orthopnea, PND, Snoring, SOB, SOB on Exertion, Wheezing, Other Gastrointestinal: denies: No Symptoms, Abdominal Pain, Bloating, Constipation, Diarrhea, Dysphagia, Indigestion, Melena, Nausea, Rectal Bleeding, Vomiting, Vomiting Blood, Other Genitourinary: denies: No Symptoms, Burning, Discharge, Dysuria, Flank Pain, Frequency, Hematuria, Incontinence, Lesions, Menses, Pain, Testicular Mass, Testicular Pain, Testicular Swelling, Urgency, Vaginal Bleeding, Other Breasts: denies: No Symptoms Reported, See HPI, Breast Implants, Discharge from Nipple, Lumps, Pain, Skin Changes, Other Musculoskeletal: denies: No Symptoms, Back Pain, Crepitus, Decreased ROM, Extremity Pain, Joint Pain, Joint Swelling, Muscle Pain, Muscle Cramps, Muscle Weakness, Other Integumentary: denies: No Symptoms, Blister, Bruising, Change in Color, Eczema, Erythema, Incision, Lesions, Lump, Pallor, Pruritis, Rash, Wound, Other Neurological: reports: Change in LOC, Confusion, Pre-Existing Deficit - Risk Factors Known Risk Factors: Yes: Diabetes Mellitus, Hypercholesterolemia, Hypertension Vital Signs: Vital Signs Temperature 98.4 F 07/23/18 15:19 Pulse Rate 72 07/23/18 15:19 Respiratory Rate 18 07/23/18 15:19 Blood Pressure 121/53 L 07/23/18 15:19 O2 Sat by Pulse Oximetry (%) 94 L 07/22/18 21:00 Constitutional: Yes: No Distress, Calm Eyes: Yes: Conjunctiva Clear, EOM Intact HENT: Yes: Atraumatic, Normocephalic Neck: Yes: Supple, Trachea Midline Respiratory: Yes: Regular, CTA Bilaterally. No: Rales, Rhonchi, Wheezes Gastrointestinal: Yes: Normal Bowel Sounds, Soft. No: Distention, Tenderness Cardiovascular: Yes: Regular Rate and Rhythm. No: Bradycardia, Tachycardia, Pulse Irregular, Gallop, Rub, Varicosities JVD: No Carotid Bruit: No PMI: Non-Displaced Heart Sounds: Yes: S1, S2. No: Split S2, S3, S4, Clicks, Gallop, Rub, Bruit Murmur: Yes: Systolic Murmur Edema: No Peripheral Pulses WNL: Yes Neurological: Yes: Alert Psychiatric: Yes: Alert - Other Data Labs, Other Data: CBC, BMP 07/23/18 09:40 07/23/18 09:40 INR, PTT INR 1.03 (0.83-1.09) 07/21/18 01:50 ekg-nsr Imaging - Results Chest X-ray: Report Reviewed EKG: Report Reviewed, Image Reviewed Other: Report Reviewed Assessment/Plan 73 year old woman with pmh ESRD (HD- Mo, We, Fr), Poorly Controlled DM, Chronic Foot Ulcer,Multiple Toe Amputations, Osteomyelitis admitted with c/o foot pain and noted to have AMS and found to have multiple CVAs chronic, acute/subacute on MRI. recent admission at [facility] for CVA CVA -neurology following -reported recent CVA treated at [facility] -Holter monitor place to evaluate for arrhythmias -check echo to evaluate for structural heart disease -if no occult afib/aflutter seen on Holter monitor would recc further event monitoring as outpatient -on ASA and statin -neurology fup
--- NOTE | 2018-07-23 20:10 | PN ---
Progress Note (short form) - Note Progress Note: NEUROLOGY FOLLOW-UP: Events and MRI films reviewed and discussed with RN. S/P HD today. Staff finds her much more lucid. Pt attributes her improvement to "stopping neurontin." Patient notes her hand functions have improved and she can "use them better." Dr. Ortiz's cardiology consultation is read and appreciated. MRI of brain (reviewed): Shows moderate atrophy and discrete lacunar infarcts in the right thalamus, left internal capsule, right parietal white matter and the bushra. There are also diffuse periventricular white matter changes. Labs sig for NH4=35 mg% and TSH= .14 B12 pending EXAM: Awake, alert. Ox3. Mild OMS. No drift and NO GROSS MYOCLONUS. Intrinsic hand muscles 4-/5 on the left and 5/5 on the right. Grasp and APB's 5/5. Remainder unchanged. IMP: Mild underlying OMS Multiple (hypertensive) Lacunar infarct. Toxic-metabolic encephalopathy- much improved after HD -R/O Hepatic encephalopathy -R/O Hypothyroidism. Left Ulnar Mononeuropathy SUGGEST: Check T4, T3 D/C Gabapentin Cont. ASA and BP control. Limit Acetaminophen exposure until hepatic condition is further explored. Thank you very much, Bennie Michaud MD
[2018-07-23] MEDS: ATORVASTATIN CA 40 MG TABLET (FP) PO SCH (22:00)
[2018-07-23 23:11] LABS: HBSAG SCREEN Negative (Negative); HEP A AB, IGM Negative (Negative); HEP B CORE AB, TOT Negative (Negative)
--- NOTE | 2018-07-24 00:06 | CONSULT ---
Consult Consult Specialty:: ENDOCRINE Referred by:: DR.ANNABI CASTRO Reason for Consultation:: DIABETES MELLITUS - History of Present Illness Chief Complaint: FLUCTUATING BLOOD SUGARS WEAKNESS History of Present Illness: 73 y/o woman with a PMHx of ESRD (HD- Mo, We, Fr), Poorly Controlled DM, Chronic Foot Ulcer,Multiple Toe Amputations, Osteomyelitis. Who presents to the ED with left foot pain with serous drainage from the ulcer. she has been very weak,poor appetite,requiring assistance with most adl accompanied by son who stater she is frequently needing help with daily tasks.blood sugars frequently low and insulin has been held since dialysis has limited her requirement for insulin. 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: Peripheral Neuropathy Cardio/Vascular: Yes: HTN Renal/: Yes: Renal Failure, Hemodialysis ...: No Endocrine: Yes: Diabetes Mellitus - Past Surgical History Past Surgical History: Yes: Amputation (right BKA, left TMA), AV Fistula/Graft ( RT RT BKA AND LEFT TMA) - Alcohol/Substance Use Hx Alcohol Use: No History of Substance Use: reports: None - Smoking History Smoking history: Never smoked Have you smoked in the past 12 months: No Aproximately how many cigarettes per day: 0 If you are a former smoker, when did you quit?: 1981 - Social History Usual Living Arrangement: Other (WILL LIVE NOW IN [place] WITH SON) ADL: Family Assistance History of Recent Travel: No Home Medications - Allergies Allergies/Adverse Reactions: Allergies Allergy/AdvReac Type Severity Reaction Status Date / Time adhesive tape Allergy Intermediate Itching Verified 07/21/18 01:05 levofloxacin [From Levaquin] Allergy Unknown Verified 07/21/18 01:05 - Home Medications Home Medications: Ambulatory Orders Acetaminophen [Tylenol] 325 mg PO ASDIR PRN 05/07/17 Amlodipine Besylate [Norvasc -] 5 mg PO DAILY 05/07/17 Carvedilol [Coreg -] 6.25 mg PO BID 05/07/17 Docusate Sodium [Dulcoease] 100 mg PO ASDIR 05/07/17 Sevelamer Carbonate [Renvela -] 2,400 mg PO CM 05/07/17 Atorvastatin Ca [Lipitor] 10 mg PO HS #30 tablet 06/01/17 Ferrous Sulfate 325 mg PO DAILY 06/11/17 Folic Acid/Vit B Complex and C [Renal-Marga Tablet] 0.8 mg PO DAILY 06/11/17 Hydrochlorothiazide [Hctz -] 12.5 mg PO DAILY 06/12/17 oxyCODONE HCL [Roxicodone -] 5 mg PO Q6H PRN #20 tablet MDD 4 06/12/17 Acetaminophen [Tylenol .Extra-Strength -] 500 mg PO Q6H PRN tablet 07/23/18 Bacitracin - [Bacitracin Topical Ointment -] 1 applic TP DAILY tube 07/23/18 Gabapentin [Neurontin -] 100 mg PO BID capsule 07/23/18 Family Disease History - Family Disease History Family Disease History: Diabetes: Mother Review of Systems - Review of Systems Constitutional: reports: Lethargy, Unintentional Wgt. Loss, Weakness Eyes: reports: Blurred Vision HENT: reports: Ringing in Ears Neck: reports: Decreased ROM, Tenderness Cardiovascular: reports: Shortness of Breath Respiratory: reports: Exercise Intolerance, SOB on Exertion Gastrointestinal: reports: Constipation Genitourinary: reports: No Symptoms Breasts: reports: No Symptoms Reported Musculoskeletal: reports: Muscle Pain, Muscle Weakness, Other Integumentary: reports: Wound Neurological: reports: Numbness, Unsteady Gait, Weakness Endocrine: reports: Unexplained Weight Loss Physical Exam Vital Signs: Vital Signs Temperature 98.4 F 07/23/18 15:19 Pulse Rate 70 07/23/18 17:20 Respiratory Rate 18 07/23/18 17:20 Blood Pressure 123/56 L 07/23/18 17:20 O2 Sat by Pulse Oximetry (%) 94 L 07/23/18 09:00 Constitutional: Yes: Calm Eyes: Yes: EOM Intact HENT: Yes: Normocephalic Neck: Yes: Trachea Midline Cardiovascular: Yes: Regular Rate and Rhythm Respiratory: Yes: CTA Bilaterally Gastrointestinal: Yes: Normal Bowel Sounds ...Rectal Exam: Yes: Deferred Musculoskeletal: Yes: Muscle Pain, Muscle Weakness Extremities: Yes: Cold, Pallor Edema: LLE: Trace, RLE: Trace Neurological: Yes: Alert, Oriented, Unsteady Gait, Weakness Labs: CBC, BMP 07/23/18 09:40 07/23/18 09:40 Problem List - Problems (1) Sick-euthyroid syndrome Code(s): E07.81 - SICK-EUTHYROID SYNDROME (2) Confusion Code(s): R41.0 - DISORIENTATION, UNSPECIFIED (3) Diabetes Code(s): E11.9 - TYPE 2 DIABETES MELLITUS WITHOUT COMPLICATIONS (4) Skin tear of left lower leg without complication Code(s): S81.812A - LACERATION WITHOUT FOREIGN BODY, LEFT LOWER LEG, INIT ENCNTR (5) AV fistula thrombosis Code(s): T82.868A - THROMBOSIS DUE TO VASCULAR PROSTH DEV/GRFT, INIT Qualifiers: Encounter type: initial encounter Qualified Code(s): T82.868A - Thrombosis due to vascular prosthetic devices, implants and grafts, initial encounter (6) Amputation of both lower extremities Code(s): S88.911A - COMPLETE TRAUMATIC AMPUTATION OF R LOW LEG, LEVEL UNSP, INIT ; S88.912A - COMPLETE TRAUMATIC AMPUTATION OF L LOW LEG, LEVEL UNSP, INIT (7) HTN (hypertension) Code(s): I10 - ESSENTIAL (PRIMARY) HYPERTENSION Assessment/Plan Current Active Problems Confusion (Acute) Diabetes (Acute) Diabetic foot ulcer (Acute) ESRD (end stage renal disease) on dialysis (Acute) Skin tear of left lower leg without complication (Acute) euthyroid sick Abnormal Lab Results 07/21/18 07/23/18 07/23/18 19:00 06:30 06:30 RBC Hgb Hct BUN Creatinine Random Glucose AST ALT Alkaline Phosphatase Ammonia 35.00 H Total Protein Albumin TSH 0.14 L Hepatitis A Ab Total Positive H 07/23/18 07/23/18 09:40 09:40 RBC 3.08 L Hgb 9.1 L Hct 26.9 L BUN 45 H Creatinine 7.0 H Random Glucose 148 H AST 12 L ALT 8 L Alkaline Phosphatase 254 H Ammonia Total Protein 6.2 L Albumin 2.8 L TSH Hepatitis A Ab Total Laboratory Results - last 24 hr 07/21/18 07/21/18 07/23/18 19:00 19:00 06:30 WBC RBC Hgb Hct MCV MCH MCHC RDW Plt Count MPV Absolute Neuts (auto) Neutrophils % Lymphocytes % Monocytes % Eosinophils % Basophils % Nucleated RBC % Sodium Potassium Chloride Carbon Dioxide Anion Gap BUN Creatinine Creat Clearance w eGFR Random Glucose Calcium Magnesium Total Bilirubin AST ALT Alkaline Phosphatase Ammonia 35.00 H Total Protein Albumin TSH RPR Titer Hep A IgM Ab Confirm Negative Hepatitis A Ab Total Positive H Hep Bs Antigen Negative Hep Bs Antibody Reactive Hep B Core Total Ab Negative Hep C Ab Diagnostic <0.1 07/23/18 07/23/18 07/23/18 06:30 06:30 09:40 WBC 8.6 RBC 3.08 L Hgb 9.1 L Hct 26.9 L MCV 87.2 MCH 29.4 MCHC 33.7 RDW 15.2 Plt Count 237 MPV 8.9 D Absolute Neuts (auto) 5.6 Neutrophils % 64.8 Lymphocytes % 22.1 Monocytes % 8.7 Eosinophils % 3.8 Basophils % 0.6 Nucleated RBC % 0 Sodium Potassium Chloride Carbon Dioxide Anion Gap BUN Creatinine Creat Clearance w eGFR Random Glucose Calcium Magnesium 2.4 Total Bilirubin AST ALT Alkaline Phosphatase Ammonia Total Protein Albumin TSH 0.14 L RPR Titer Nonreactive Hep A IgM Ab Confirm Hepatitis A Ab Total Hep Bs Antigen Hep Bs Antibody Hep B Core Total Ab Hep C Ab Diagnostic 07/23/18 09:40 WBC RBC Hgb Hct MCV MCH MCHC RDW Plt Count MPV Absolute Neuts (auto) Neutrophils % Lymphocytes % Monocytes % Eosinophils % Basophils % Nucleated RBC % Sodium 141 Potassium 4.7 Chloride 101 Carbon Dioxide 30 Anion Gap 10 BUN 45 H Creatinine 7.0 H Creat Clearance w eGFR 5.79 Random Glucose 148 H Calcium 9.0 Magnesium Total Bilirubin 0.3 AST 12 L ALT 8 L Alkaline Phosphatase 254 H Ammonia Total Protein 6.2 L Albumin 2.8 L TSH RPR Titer Hep A IgM Ab Confirm Hepatitis A Ab Total Hep Bs Antigen Hep Bs Antibody Hep B Core Total Ab Hep C Ab Diagnostic plan: bgm qid novolog scale ck hba1c ck free t4
[2018-07-24] MEDS: INSULIN SLIDING SCALE (NOVOLOG) 1 VIAL SQ SCH ×4 (06:32→21:24)
[2018-07-24] MEDS: ACETAMINOPHEN 500 MG TABLET (FP) PO PRN ×3 (08:07→23:20)
--- NOTE | 2018-07-24 08:15 | PN ---
Progress Note, Physician - Current Medication List Current Medications: Active Medications Acetaminophen (Tylenol -) 500 mg PO Q6H PRN PRN Reason: PAIN LEVEL 4 - 6 Last Admin: 07/24/18 08:07 Dose: 500 mg Amlodipine Besylate (Norvasc -) 5 mg PO DAILY [facility] Last Admin: 07/23/18 10:46 Dose: 5 mg Aspirin (Ecotrin -) 81 mg PO DAILY [facility] Atorvastatin Calcium (Lipitor -) 40 mg PO HS [facility] Last Admin: 07/23/18 22:00 Dose: 40 mg Bacitracin (Bacitracin -) 1 applic TP DAILY [facility] Last Admin: 07/23/18 10:46 Dose: 1 applic Carvedilol (Coreg -) 6.25 mg PO BID [facility] Last Admin: 07/23/18 22:00 Dose: 6.25 mg Docusate Sodium (Colace -) 100 mg PO DAILY [facility] Last Admin: 07/23/18 10:45 Dose: 100 mg Ferrous Sulfate (Feosol -) 325 mg PO DAILY [facility] Last Admin: 07/23/18 10:45 Dose: 325 mg Insulin Aspart (Novolog Vial Sliding Scale -) 1 vial SQ [facility]; Protocol Last Admin: 07/24/18 06:32 Dose: Not Given Multivit/Ca Carb/B Cmplx/FA/Prenat (Nephro-Marga -) 1 tablet PO DAILY [facility] Last Admin: 07/23/18 10:46 Dose: 1 tablet Sevelamer Carbonate (Renvela -) 2,400 mg PO TIDCM [facility] Last Admin: 07/23/18 18:19 Dose: 2,400 mg - Objective Vital Signs: Vital Signs Temperature 98.9 F 07/24/18 06:00 Pulse Rate 73 07/24/18 06:00 Respiratory Rate 18 07/24/18 06:00 Blood Pressure 140/53 L 07/24/18 06:00 O2 Sat by Pulse Oximetry (%) 94 L 07/23/18 21:00 Cardiovascular: Yes: Regular Rate and Rhythm Respiratory: Yes: Regular, CTA Bilaterally Gastrointestinal: Yes: Normal Bowel Sounds, Soft Extremities: Yes: Amputation Edema: No Wound/Incision: Yes: Dressing Removed. No: Draining Labs: CBC, BMP 07/23/18 09:40 07/23/18 09:40 INR, PTT INR 1.03 (0.83-1.09) 07/21/18 01:50 Problem List - Problems (1) Confusion Assessment/Plan: --Improved--alert and oriented --mri acue cva --on meds Code(s): R41.0 - DISORIENTATION, UNSPECIFIED (2) ESRD (end stage renal disease) on dialysis Assessment/Plan: per renal Code(s): N18.6 - END STAGE RENAL DISEASE; Z99.2 - DEPENDENCE ON RENAL DIALYSIS (3) Skin tear of left lower leg without complication Assessment/Plan: id and surgical consults noted local care Code(s): S81.812A - LACERATION WITHOUT FOREIGN BODY, LEFT LOWER LEG, INIT ENCNTR (4) HTN (hypertension) Code(s): I10 - ESSENTIAL (PRIMARY) HYPERTENSION (5) Type 2 diabetes mellitus with retinopathy without macular edema Assessment/Plan: bgm Code(s): E11.319 - TYPE 2 DIABETES W UNSP DIABETIC RTNOP W/O MACULAR EDEMA (6) CVA (cerebral vascular accident) Assessment/Plan: _on statin'- -on asa pt await holter cardio and neuro on board Code(s): I63.9 - CEREBRAL INFARCTION, UNSPECIFIED
[2018-07-24] MEDS: SEVELAMER CARBONATE 800 MG TAB (FP) PO SCH ×3 (09:16→17:51)
[2018-07-24] MEDS ORDERED: PT OWN MED DRAWER 7, Y5N ONE (11:00)
[2018-07-24] MEDS: DOCUSATE SODIUM 100 MG CAPSULE (FP) PO SCH (11:05)
[2018-07-24] MEDS: BACITRACIN 15 GM TUBE TOPICAL OINTMENT TP SCH (11:05)
[2018-07-24] MEDS: CARVEDILOL 6.25 MG TABLET (FP) PO SCH ×2 (11:05→21:21)
[2018-07-24] MEDS: FERROUS SO4 325 MG TABLET (FP) PO SCH (11:05)
[2018-07-24] MEDS: VITAMIN B COMP W-C 1 EA TABLET PO SCH (11:06)
[2018-07-24] MEDS: ASPIRIN COATED 81 MG TABLET.EC PO SCH (11:06)
--- NOTE | 2018-07-24 11:34 | ECHO ---
Name: BJ CARMONA Exam:Adult Echocardiogram Study Date: 07/24/2018 08:51 AM Age: 73 yrs Reason For Study: CVA MMode/2D Measurements & Calculations IVSd: 1.3 cm Ao root diam: 2.7 cm LVIDd: 4.1 cm LA dimension: 3.3 cm LVIDs: 2.5 cm LVPWd: 1.2 cm EDV(Teich): 73.5 ml LVOT diam: 2.0 cm ESV(Teich): 22.6 ml Doppler Measurements & Calculations MV E max lance: 79.5 cm/sec Ao V2 max: 202.0 cm/sec MV A max lance: 127.3 cm/sec Ao max P.3 mmHg MV E/A: 0.62 MADELINE(V,D): 1.7 cm2 LV V1 max P.6 mmHg Med Peak E' Lance: 4.3 cm/sec LV V1 max: 107.6 cm/sec Med E/e': 18.6 Lat Peak E' Lance: 5.3 cm/sec Lat E/e': 15.1 Procedure A complete two-dimensional transthoracic echocardiogram was performed (2D, M-mode, Doppler and color flow Doppler). Left Ventricle There is mild concentric left ventricular hypertrophy. The left ventricular ejection fraction is norm al. Ejection Fraction = 60-65%. The left ventricular wall motion is normal. Right Ventricle The right ventricle is normal in size and function. Atria Normal left and right atrial size and function. Mitral Valve There is mild mitral annular calcification. There is no mitral regurgitation noted. Tricuspid Valve There is trace tricuspid regurgitation. There was insufficient TR detected to calculate RV systolic p ressure. Aortic Valve The aortic valve is trileaflet. There is mild aortic valve thickening. No hemodynamically significant valvular aortic stenosis. No aortic regurgitation is present. Pulmonic Valve Trace pulmonic valvular regurgitation. Great Vessels The aortic root is normal size. Pericardium/Pleura There is no pericardial effusion. Interpretation Summary There is mild concentric left ventricular hypertrophy. The left ventricular ejection fraction is normal. The left ventricular wall motion is normal. The right ventricle is normal in size and function. There is trace tricuspid regurgitation. Trace pulmonic valvular regurgitation. MD Geremias Casanova 07/24/2018 11:33 AM
--- NOTE | 2018-07-24 12:51 | EKG ---
Test Reason : Blood Pressure : / mmHG Vent. Rate : 064 BPM Atrial Rate : 064 BPM P-R Int : 154 ms QRS Dur : 090 ms QT Int : 434 ms P-R-T Axes : 047 -29 039 degrees QTc Int : 447 ms NORMAL SINUS RHYTHM VOLTAGE CRITERIA FOR LEFT VENTRICULAR HYPERTROPHY ABNORMAL ECG WHEN COMPARED WITH ECG OF 21-JUL-2018 01:23, NO SIGNIFICANT CHANGE WAS FOUND Confirmed by LYLE WILLIAMSON MD ([id number]) on 07/24/2018 12:50:46 PM Referred By: Kathy PRINCE Confirmed By:LYLE WILLIAMSON MD
[2018-07-24] MEDS: amLODIPine BESYLATE 5 MG TABLET (FP) PO SCH (15:18)
--- NOTE | 2018-07-24 15:41 | PN ---
Progress Note, Physician History of Present Illness: seen and examined today in nad. no overnight events. no new complaints. - Current Medication List Current Medications: Active Medications Acetaminophen (Tylenol -) 500 mg PO Q6H PRN PRN Reason: PAIN LEVEL 4 - 6 Last Admin: 07/24/18 08:07 Dose: 500 mg Amlodipine Besylate (Norvasc -) 5 mg PO DAILY [facility] Last Admin: 07/24/18 15:18 Dose: 5 mg Aspirin (Ecotrin -) 81 mg PO DAILY [facility] Last Admin: 07/24/18 11:06 Dose: 81 mg Atorvastatin Calcium (Lipitor -) 40 mg PO HS [facility] Last Admin: 07/23/18 22:00 Dose: 40 mg Bacitracin (Bacitracin -) 1 applic TP DAILY [facility] Last Admin: 07/24/18 11:05 Dose: 1 applic Carvedilol (Coreg -) 6.25 mg PO BID [facility] Last Admin: 07/24/18 11:05 Dose: 6.25 mg Docusate Sodium (Colace -) 100 mg PO DAILY [facility] Last Admin: 07/24/18 11:05 Dose: 100 mg Ferrous Sulfate (Feosol -) 325 mg PO DAILY [facility] Last Admin: 07/24/18 11:05 Dose: 325 mg Insulin Aspart (Novolog Vial Sliding Scale -) 1 vial SQ ACHS [facility]; Protocol Last Admin: 07/24/18 11:43 Dose: Not Given Multivit/Ca Carb/B Cmplx/FA/Prenat (Nephro-Marga -) 1 tablet PO DAILY [facility] Last Admin: 07/24/18 11:06 Dose: 1 tablet Sevelamer Carbonate (Renvela -) 2,400 mg PO TIDCM [facility] Last Admin: 07/24/18 12:50 Dose: 2,400 mg - Objective Vital Signs: Vital Signs Temperature 98.2 F 07/24/18 14:43 Pulse Rate 70 07/24/18 14:43 Respiratory Rate 18 07/24/18 14:43 Blood Pressure 126/53 L 07/24/18 14:43 O2 Sat by Pulse Oximetry (%) 94 L 07/23/18 21:00 Constitutional: Yes: No Distress, Calm Eyes: Yes: Conjunctiva Clear, EOM Intact HENT: Yes: Atraumatic, Normocephalic Neck: Yes: Supple, Trachea Midline Cardiovascular: Yes: Regular Rate and Rhythm, S1, S2. No: Bradycardia, Tachycardia, Pulse Irregular, Bruit, JVD, Gallop, Murmur, Rub, S3, S4, Varicosities Respiratory: Yes: Regular, CTA Bilaterally Gastrointestinal: Yes: Normal Bowel Sounds, Soft Extremities: Yes: WNL Edema: No Peripheral Pulses WNL: Yes Neurological: Yes: Alert Psychiatric: Yes: Alert Labs: CBC, BMP 07/23/18 09:40 07/23/18 09:40 INR, PTT INR 1.03 (0.83-1.09) 07/21/18 01:50 - ....Imaging Chest X-ray: Report Reviewed, Image Reviewed EKG: Report Reviewed, Image Reviewed Other: Report Reviewed, Image Reviewed Assessment/Plan 73 year old woman with pmh ESRD (HD- Mo, We, Fr), Poorly Controlled DM, Chronic Foot Ulcer,Multiple Toe Amputations, Osteomyelitis admitted with c/o foot pain and noted to have AMS and found to have multiple CVAs chronic, acute/subacute on MRI. recent admission at [facility] for CVA CVA -neurology following, fup appreciated, Lacunar infarcts likely Hypertensive induced -reported recent CVA treated at [place] -echo showed normal LV systolic function, minimal valvular abnormalities -if no occult afib/aflutter seen on Holter monitor would [facility] further event monitoring as outpatient -on ASA and statin -cont HTN control, currently adequately controlled -No additional inpatient cardiac work up needed at this time. -[facility] outpatient fup Please call with any additional questions.
[2018-07-24] MEDS: oxyCODONE HCL 5 MG TABLET PO PRN (21:21)
[2018-07-24] MEDS: ATORVASTATIN CA 40 MG TABLET (FP) PO SCH (21:21)
[2018-07-25] MEDS: INSULIN SLIDING SCALE (NOVOLOG) 1 VIAL SQ SCH ×4 (06:06→21:22)
--- NOTE | 2018-07-25 08:34 | PN ---
Progress Note, Physician - Current Medication List Current Medications: Active Medications Acetaminophen (Tylenol -) 500 mg PO Q6H PRN PRN Reason: PAIN LEVEL 4 - 6 Last Admin: 07/24/18 23:20 Dose: 500 mg Amlodipine Besylate (Norvasc -) 5 mg PO DAILY [facility] Last Admin: 07/24/18 15:18 Dose: 5 mg Aspirin (Ecotrin -) 81 mg PO DAILY [facility] Last Admin: 07/24/18 11:06 Dose: 81 mg Atorvastatin Calcium (Lipitor -) 40 mg PO HS [facility] Last Admin: 07/24/18 21:21 Dose: 40 mg Bacitracin (Bacitracin -) 1 applic TP DAILY [facility] Last Admin: 07/24/18 11:05 Dose: 1 applic Carvedilol (Coreg -) 6.25 mg PO BID [facility] Last Admin: 07/24/18 21:21 Dose: 6.25 mg Docusate Sodium (Colace -) 100 mg PO DAILY [facility] Last Admin: 07/24/18 11:05 Dose: 100 mg Ferrous Sulfate (Feosol -) 325 mg PO DAILY [facility] Last Admin: 07/24/18 11:05 Dose: 325 mg Insulin Aspart (Novolog Vial Sliding Scale -) 1 vial SQ ACHS [facility]; Protocol Last Admin: 07/25/18 06:06 Dose: Not Given Multivit/Ca Carb/B Cmplx/FA/Prenat (Nephro-Marga -) 1 tablet PO DAILY [facility] Last Admin: 07/24/18 11:06 Dose: 1 tablet Oxycodone HCl (Roxicodone -) 5 mg PO Q6H PRN PRN Reason: PAIN LEVEL 7 - 10 Last Admin: 07/24/18 21:21 Dose: 5 mg Sevelamer Carbonate (Renvela -) 2,400 mg PO TIDCM [facility] Last Admin: 07/24/18 17:51 Dose: 2,400 mg - Objective Vital Signs: Vital Signs Temperature 98.2 F 07/25/18 06:00 Pulse Rate 65 07/25/18 06:00 Respiratory Rate 18 07/25/18 06:00 Blood Pressure 109/45 L 07/25/18 06:00 O2 Sat by Pulse Oximetry (%) 95 07/24/18 21:00 Cardiovascular: Yes: S1, S2 Respiratory: Yes: Regular, CTA Bilaterally Gastrointestinal: Yes: Normal Bowel Sounds, Soft Labs: CBC, BMP 07/23/18 09:40 07/23/18 09:40 INR, PTT INR 1.03 (0.83-1.09) 07/21/18 01:50 Problem List - Problems (1) Confusion Assessment/Plan: --Improved--alert and oriented --mri acute cva --on meds Code(s): R41.0 - DISORIENTATION, UNSPECIFIED (2) ESRD (end stage renal disease) on dialysis Assessment/Plan: per renal Code(s): N18.6 - END STAGE RENAL DISEASE; Z99.2 - DEPENDENCE ON RENAL DIALYSIS (3) Skin tear of left lower leg without complication Assessment/Plan: id and surgical consults noted local care Code(s): S81.812A - LACERATION WITHOUT FOREIGN BODY, LEFT LOWER LEG, INIT ENCNTR (4) HTN (hypertension) Code(s): I10 - ESSENTIAL (PRIMARY) HYPERTENSION (5) Type 2 diabetes mellitus with retinopathy without macular edema Assessment/Plan: bgm Code(s): E11.319 - TYPE 2 DIABETES W UNSP DIABETIC RTNOP W/O MACULAR EDEMA (6) CVA (cerebral vascular accident) Assessment/Plan: _on statin'- -on asa pt await holter cardio and neuro on board Code(s): I63.9 - CEREBRAL INFARCTION, UNSPECIFIED Assessment/Plan dc planning
[2018-07-25] MEDS ORDERED: PT OWN MED DRAWER 7, Y5N ONE (09:24)
[2018-07-25] MEDS: SEVELAMER CARBONATE 800 MG TAB (FP) PO SCH ×3 (09:31→18:13)
[2018-07-25] MEDS: ASPIRIN COATED 81 MG TABLET.EC PO SCH (09:31)
[2018-07-25] MEDS: VITAMIN B COMP W-C 1 EA TABLET PO SCH (09:31)
[2018-07-25] MEDS: oxyCODONE HCL 5 MG TABLET PO PRN ×3 (09:31→21:28)
[2018-07-25] MEDS: FERROUS SO4 325 MG TABLET (FP) PO SCH (09:31)
[2018-07-25] MEDS: CARVEDILOL 6.25 MG TABLET (FP) PO SCH ×2 (09:31→21:01)
[2018-07-25] MEDS: DOCUSATE SODIUM 100 MG CAPSULE (FP) PO SCH (09:31)
[2018-07-25] MEDS: BACITRACIN 15 GM TUBE TOPICAL OINTMENT TP SCH (09:32)
[2018-07-25] MEDS: amLODIPine BESYLATE 5 MG TABLET (FP) PO SCH (11:33)
[2018-07-25] MEDS ORDERED: EPOETIN ALFA 2,000 UNIT, EPOETIN ALFA 3,000 UNIT IVPUSH ONE (15:00)
--- NOTE | 2018-07-25 17:17 | PN ---
Progress Note, Physician Chief Complaint: tolerating dialysis well no complaint History of Present Illness: dm,2 esrd,htn,ashd,tia cva,diabetic vascular disease complications - Current Medication List Current Medications: Active Medications Acetaminophen (Tylenol -) 500 mg PO Q6H PRN PRN Reason: PAIN LEVEL 4 - 6 Last Admin: 07/24/18 23:20 Dose: 500 mg Amlodipine Besylate (Norvasc -) 5 mg PO DAILY [facility] Last Admin: 07/25/18 11:33 Dose: 5 mg Aspirin (Ecotrin -) 81 mg PO DAILY [facility] Last Admin: 07/25/18 09:31 Dose: 81 mg Atorvastatin Calcium (Lipitor -) 40 mg PO HS [facility] Last Admin: 07/24/18 21:21 Dose: 40 mg Bacitracin (Bacitracin -) 1 applic TP DAILY [facility] Last Admin: 07/25/18 09:32 Dose: 1 applic Carvedilol (Coreg -) 6.25 mg PO BID [facility] Last Admin: 07/25/18 09:31 Dose: 6.25 mg Docusate Sodium (Colace -) 100 mg PO DAILY [facility] Last Admin: 07/25/18 09:31 Dose: 100 mg Ferrous Sulfate (Feosol -) 325 mg PO DAILY [facility] Last Admin: 07/25/18 09:31 Dose: 325 mg Insulin Aspart (Novolog Vial Sliding Scale -) 1 vial SQ ACHS [facility]; Protocol Last Admin: 07/25/18 11:35 Dose: Not Given Multivit/Ca Carb/B Cmplx/FA/Prenat (Nephro-Marga -) 1 tablet PO DAILY [facility] Last Admin: 07/25/18 09:31 Dose: 1 tablet Oxycodone HCl (Roxicodone -) 5 mg PO Q6H PRN PRN Reason: PAIN LEVEL 7 - 10 Last Admin: 07/25/18 15:48 Dose: 5 mg Sevelamer Carbonate (Renvela -) 2,400 mg PO TIDCM [facility] Last Admin: 07/25/18 12:33 Dose: 2,400 mg - Objective Vital Signs: Vital Signs Temperature 98.9 F 07/25/18 14:49 Pulse Rate 70 07/25/18 17:00 Respiratory Rate 18 07/25/18 17:00 Blood Pressure 104/67 07/25/18 17:00 O2 Sat by Pulse Oximetry (%) 100 07/25/18 09:00 Constitutional: Yes: Well Nourished, Calm Eyes: Yes: EOM Intact HENT: Yes: Normocephalic Neck: Yes: Trachea Midline Cardiovascular: Yes: Regular Rate and Rhythm Respiratory: Yes: CTA Bilaterally Gastrointestinal: Yes: Normal Bowel Sounds ...Rectal Exam: Yes: WNL Genitourinary: Yes: WNL Musculoskeletal: Yes: Muscle Weakness Extremities: Yes: Delayed Capillary Refill Edema: No Neurological: Yes: Alert, Oriented Labs: CBC, BMP 07/23/18 09:40 07/23/18 09:40 INR, PTT INR 1.03 (0.83-1.09) 07/21/18 01:50 Problem List - Problems (1) Sick-euthyroid syndrome Code(s): E07.81 - SICK-EUTHYROID SYNDROME (2) Confusion Code(s): R41.0 - DISORIENTATION, UNSPECIFIED (3) Diabetes Code(s): E11.9 - TYPE 2 DIABETES MELLITUS WITHOUT COMPLICATIONS (4) Skin tear of left lower leg without complication Code(s): S81.812A - LACERATION WITHOUT FOREIGN BODY, LEFT LOWER LEG, INIT ENCNTR (5) AV fistula thrombosis Code(s): T82.868A - THROMBOSIS DUE TO VASCULAR PROSTH DEV/GRFT, INIT Qualifiers: Encounter type: initial encounter Qualified Code(s): T82.868A - Thrombosis due to vascular prosthetic devices, implants and grafts, initial encounter (6) Amputation of both lower extremities Code(s): S88.911A - COMPLETE TRAUMATIC AMPUTATION OF R LOW LEG, LEVEL UNSP, INIT ; S88.912A - COMPLETE TRAUMATIC AMPUTATION OF L LOW LEG, LEVEL UNSP, INIT (7) HTN (hypertension) Code(s): I10 - ESSENTIAL (PRIMARY) HYPERTENSION Assessment/Plan Current Active Problems CVA (cerebral vascular accident) (Acute) Confusion (Acute) Diabetes (Acute) Diabetic foot ulcer (Acute) ESRD (end stage renal disease) on dialysis (Acute) Sick-euthyroid syndrome (Acute) Skin tear of left lower leg without complication (Acute) Laboratory Results - last 24 hr 07/24/18 07/24/18 07/24/18 06:00 17:47 21:23 POC Glucometer 137 161 Total T3 76.00 07/25/18 07/25/18 06:06 11:34 POC Glucometer 136 160 Total T3 Laboratory Tests 07/24/18 07/24/18 07/24/18 11:42 17:47 21:23 POC Glucometer 175 137 161 07/25/18 07/25/18 06:06 11:34 POC Glucometer 136 160 Current Medications Generic Name Dose Route Start Last Admin Trade Name Darwin PRN Reason Stop Dose Admin Acetaminophen 500 mg 07/21/18 18:03 07/24/18 23:20 Tylenol - PO 500 mg Q6H PRN Administration PAIN LEVEL 4 - 6 Amlodipine Besylate 5 mg 07/21/18 10:00 07/25/18 11:33 Norvasc - PO 5 mg DAILY BLANCHE Administration Aspirin 81 mg 07/24/18 10:00 07/25/18 09:31 Ecotrin - PO 81 mg DAILY BLANCHE Administration Atorvastatin Calcium 40 mg 07/23/18 22:00 07/24/18 21:21 Lipitor - PO 40 mg HS BLANCHE Administration Bacitracin 1 applic 07/21/18 23:45 07/25/18 09:32 Bacitracin - TP 1 applic DAILY [facility] Administration Carvedilol 6.25 mg 07/21/18 10:00 07/25/18 09:31 Coreg - PO 6.25 mg BID BLANCHE Administration Docusate Sodium 100 mg 07/21/18 10:45 07/25/18 09:31 Colace - PO 100 mg DAILY [facility]ANC[facility] Administration Ferrous Sulfate 325 mg 07/21/18 10:00 07/25/18 09:31 Feosol - PO 325 mg DAILY BLANCHE Administration Insulin Aspart 1 vial 07/24/18 07:00 07/25/18 11:35 Novolog Vial Sliding Scale - SQ Not Given ACHS [facility] Protocol Multivit/Ca Carb/B Cmplx/FA/Prenat 1 tablet 07/21/18 10:00 07/25/18 09:31 Nephro-Marga - PO 1 tablet DAILY [facility] Administration Oxycodone HCl 5 mg 07/24/18 20:54 07/25/18 15:48 Roxicodone - PO 5 mg Q6H PRN Administration PAIN LEVEL 7 - 10 Sevelamer Carbonate 2,400 mg 07/21/18 08:00 07/25/18 12:33 Renvela - PO 2,400 mg TIDCM [facility] Administration plan: Laboratory Tests 07/23/18 06:00 Hemoglobin A1c % 6.3 euthyroid sick free t4 normal Laboratory Tests 07/23/18 07/24/18 06:30 06:00 TSH 0.14 L Free T4 1.03 no further intervention for thyroid or dm since both controlled
[2018-07-25] MEDS ORDERED: EPOETIN ALFA 10,000 UNIT/1 ML VIAL SQ ONE (17:27)
--- NOTE | 2018-07-25 17:29 | PN ---
Progress Note (short form) - Note Progress Note: RENAL 73 WITH DM HTN ESRD PVD RT BKD LEFT TMA IN WITH A SKIN TEAR OF THE LEFT TMA NO INFECTION XRAY AND ALL LABS AND NOTES REVIEWED seen by neuro had brain MRI Had ECHO EF preserved PAIN FREE NOW SEEN AT HD F160 2.5 HR K2 CA2.5 TARGET 2 KG HB 9.9 EPO 10k ordered dc planning in progress BP are low DC norvasc keep on coreg alone DC oral fe avoid in dialysis pts will give IV as needed
--- NOTE | 2018-07-25 17:33 | DS ---
Physical Examination Vital Signs: Vital Signs Temperature 98.9 F 07/25/18 14:49 Pulse Rate 70 07/25/18 17:00 Respiratory Rate 18 07/25/18 17:00 Blood Pressure 104/67 07/25/18 17:00 O2 Sat by Pulse Oximetry (%) 100 07/25/18 09:00 Findings/Remarks: This is a 73 y/o woman with a PMHx of ESRD (HD- Mo, We, Fr), Poorly Controlled DM, Chronic Foot Ulcer,Multiple Toe Amputations, Osteomyelitis. Who presents to the ED with left foot pain with serous drainage from the ulcer. Patient was unable to provide detailed HPI. Patient's son provided HPI to the ED: Patient son at bedside to assist in report. Notes that patient with complaint of left big toe pain, and left vee pain today, when on wheelchair. Patient son states that patient had undergone physical therapy with walker yesterday, and typically is wheelchair bound at baseline. Patient now with sharp, pain at first metatrsal, with clear drainage. Patient reports applying topical Bacitracin. Patient does not produce urine. Last dialysis this pat Saturday (07/19). Patient denies N/V, palpitations, orthopnea, PND, F/C, cough, wheezing, leg swelling, CP, SOB, urinary complaints, abdominal pain, diarrhea, constipation, lightheadedness, weakness, sensory changes. Constitutional: Yes: Well Nourished, No Distress, Calm Labs: CBC, BMP 07/23/18 09:40 12 09:40 Discharge Summary Reason For Visit: DIABETIC FOOT ULCER, END STAGE RENAL FAILURE ON Current Active Problems CVA (cerebral vascular accident) (Acute) Confusion (Acute) Diabetes (Acute) Diabetic foot ulcer (Acute) ESRD (end stage renal disease) on dialysis (Acute) Sick-euthyroid syndrome (Acute) Skin tear of left lower leg without complication (Acute) Hospital Course: Laboratory Last Values WBC 8.6 K/mm3 (4.0-10.0) 07/23/18 09:40 RBC 3.08 M/mm3 (3.60-5.2) L 07/23/18 09:40 Hgb 9.1 GM/dL (10.7-15.3) L 07/23/18 09:40 Hct 26.9 % (32.4-45.2) L 07/23/18 09:40 MCV 87.2 fl (80-96) 07/23/18 09:40 MCH 29.4 pg (25.7-33.7) 07/23/18 09:40 MCHC 33.7 g/dl (32.0-36.0) 07/23/18 09:40 RDW 15.2 % (11.6-15.6) 07/23/18 09:40 Plt Count 237 K/MM3 (134-434) 07/23/18 09:40 MPV 8.9 fl (7.5-11.1) D 07/23/18 09:40 Absolute Neuts (auto) 5.6 K/mm3 (1.5-8.0) 07/23/18 09:40 Neutrophils % 64.8 % (42.8-82.8) 07/23/18 09:40 Lymphocytes % 22.1 % (8-40) 07/23/18 09:40 Monocytes % 8.7 % (3.8-10.2) 07/23/18 09:40 Eosinophils % 3.8 % (0-4.5) 07/23/18 09:40 Basophils % 0.6 % (0-2.0) 07/23/18 09:40 Nucleated RBC % 0 % (0-0) 07/23/18 09:40 ESR 62 mm/hr (0-30) H 07/21/18 01:50 PT with INR 12.10 SEC (9.7-13.0) 07/21/18 01:50 INR 1.03 (0.83-1.09) 07/21/18 01:50 Sodium 141 mmol/L (136-145) 07/23/18 09:40 Potassium 4.7 mmol/L (3.5-5.1) 07/23/18 09:40 Chloride 101 mmol/L (98-107) 07/23/18 09:40 Carbon Dioxide 30 mmol/L (21-32) 07/23/18 09:40 Anion Gap 10 MMOL/L (8-16) 07/23/18 09:40 BUN 45 mg/dL (7-18) H 07/23/18 09:40 Creatinine 7.0 mg/dL (0.55-1.3) H 07/23/18 09:40 Creat Clearance w eGFR 5.79 (>60) 07/23/18 09:40 POC Glucometer 160 UNITS (80-120) 07/25/18 11:34 Random Glucose 148 mg/dL (74-106) H 07/23/18 09:40 Hemoglobin A1c % 6.3 % (4.2-6.3) 07/23/18 06:00 Calcium 9.0 mg/dL (8.5-10.1) 07/23/18 09:40 Magnesium 2.4 mg/dL (1.8-2.4) 07/23/18 06:30 Total Bilirubin 0.3 mg/dL (0.2-1) 07/23/18 09:40 AST 12 U/L (15-37) L 07/23/18 09:40 ALT 8 U/L (13-61) L 07/23/18 09:40 Alkaline Phosphatase 254 U/L (45-117) H 07/23/18 09:40 Ammonia 35.00 umol/L (11-32) H 07/23/18 06:30 C-Reactive Protein 2.0 MG/DL (0.00-0.3) H 07/21/18 01:50 Total Protein 6.2 g/dl (6.4-8.2) L 07/23/18 09:40 Albumin 2.8 g/dl (3.4-5.0) L 07/23/18 09:40 TSH 0.14 uIU/ml (0.358-3.74) L 07/23/18 06:30 Free T4 1.03 ng/dl (0.76-1.46) 07/24/18 06:00 Total T3 76.00 ng/dl (71-180) 07/24/18 06:00 RPR Titer Nonreactive (NONREACTIVE) 07/23/18 06:30 Hep A IgM Ab Confirm Negative (Negative) 07/21/18 19:00 Hepatitis A Ab Total Positive (Negative) H 07/21/18 19:00 Hep Bs Antigen Negative (Negative) 07/21/18 19:00 Hep Bs Antibody Reactive (.) 07/21/18 19:00 Hep B Core Total Ab Negative (Negative) 07/21/18 19:00 Hep C Ab Diagnostic <0.1 s/co ratio (0.0-0.9) 07/21/18 19:00 Microbiology 07/21/18 01:50 Blood - Peripheral Venous Blood Culture - Preliminary NO GROWTH OBTAINED AFTER 96 HOURS, INCUBATION TO CONTINUE FOR 1 DAYS. 07/21/18 01:50 Blood - Peripheral Venous Blood Culture - Preliminary NO GROWTH OBTAINED AFTER 96 HOURS, INCUBATION TO CONTINUE FOR 1 DAYS. 07/21/18 01:50 Foot - Left Gram Stain - Final 07/21/18 01:50 Foot - Left Wound Culture - Final Enterobacter Cloacae Acinetobacter Baumannii/Haemol Bacillus Species, Not Antracis Staphylococcus Coagulase Neg Enterococcus Faecium Condition: Stable - Instructions Referrals: Deep Melgoza MD [Primary Care Provider] - 1 Week Deep Briseno MD [Non Staff, Medical] - Disposition: VNS/HOME HEALTH CARE - Home Medications Comprehensive Discharge Medication List: Ambulatory Orders Acetaminophen [Tylenol] 325 mg PO ASDIR PRN 05/07/17 Amlodipine Besylate [Norvasc -] 5 mg PO DAILY 05/07/17 Carvedilol [Coreg -] 6.25 mg PO BID 05/07/17 Docusate Sodium [Dulcoease] 100 mg PO ASDIR 05/07/17 Sevelamer Carbonate [Renvela -] 2,400 mg PO CM 05/07/17 Atorvastatin Ca [Lipitor] 10 mg PO HS #30 tablet 06/01/17 Ferrous Sulfate 325 mg PO DAILY 06/11/17 Folic Acid/Vit B Complex and C [Renal-Marga Tablet] 0.8 mg PO DAILY 06/11/17 Hydrochlorothiazide [Hctz -] 12.5 mg PO DAILY 06/12/17 oxyCODONE HCL [Roxicodone -] 5 mg PO Q6H PRN #20 tablet MDD 4 06/12/17 Acetaminophen [Tylenol .Extra-Strength -] 500 mg PO Q6H PRN tablet 07/23/18 Bacitracin - [Bacitracin Topical Ointment -] 1 applic TP DAILY tube 07/23/18 Gabapentin [Neurontin -] 100 mg PO BID capsule 07/23/18
[2018-07-25] MEDS: ATORVASTATIN CA 40 MG TABLET (FP) PO SCH (21:01)
[2018-07-26] MEDS: oxyCODONE HCL 5 MG TABLET PO PRN ×2 (04:01→09:58)
[2018-07-26] MEDS: INSULIN SLIDING SCALE (NOVOLOG) 1 VIAL SQ SCH ×3 (06:09→18:10)
--- NOTE | 2018-07-26 08:37 | PN ---
Progress Note, Physician Chief Complaint: AMS History of Present Illness: NAD no events overnight had dialysis yesterday seen by nephrology merry and zandraoskiki dumont family refused SNF, being discharged home with home care services today - Current Medication List Current Medications: Active Medications Acetaminophen (Tylenol -) 500 mg PO Q6H PRN PRN Reason: PAIN LEVEL 4 - 6 Last Admin: 07/24/18 23:20 Dose: 500 mg Aspirin (Ecotrin -) 81 mg PO DAILY [facility] Last Admin: 07/25/18 09:31 Dose: 81 mg Atorvastatin Calcium (Lipitor -) 40 mg PO HS [facility] Last Admin: 07/25/18 21:01 Dose: 40 mg Bacitracin (Bacitracin -) 1 applic TP DAILY [facility] Last Admin: 07/25/18 09:32 Dose: 1 applic Carvedilol (Coreg -) 6.25 mg PO BID [facility] Last Admin: 07/25/18 21:01 Dose: 6.25 mg Docusate Sodium (Colace -) 100 mg PO DAILY [facility] Last Admin: 07/25/18 09:31 Dose: 100 mg Epoetin Willis (Procrit -) 10,000 unit SQ ONCE ONE Stop: 07/25/18 17:28 Insulin Aspart (Novolog Vial Sliding Scale -) 1 vial SQ [facility]; Protocol Last Admin: 07/26/18 06:09 Dose: Not Given Multivit/Ca Carb/B Cmplx/FA/Prenat (Nephro-Marga -) 1 tablet PO DAILY [facility] Last Admin: 07/25/18 09:31 Dose: 1 tablet Oxycodone HCl (Roxicodone -) 5 mg PO Q6H PRN PRN Reason: PAIN LEVEL 7 - 10 Last Admin: 07/26/18 04:01 Dose: 5 mg Sevelamer Carbonate (Renvela -) 2,400 mg PO TIDCM [facility] Last Admin: 07/25/18 18:13 Dose: 2,400 mg - Objective Vital Signs: Vital Signs Temperature 98.4 F 07/26/18 06:00 Pulse Rate 76 07/26/18 06:00 Respiratory Rate 18 07/26/18 06:00 Blood Pressure 145/59 L 07/26/18 06:00 O2 Sat by Pulse Oximetry (%) 96 07/25/18 21:00 Constitutional: Yes: Well Nourished, No Distress, Calm Cardiovascular: Yes: Regular Rate and Rhythm Respiratory: Yes: Regular Musculoskeletal: Yes: Muscle Weakness Neurological: Yes: Alert, Pre-Existing Deficit Labs: CBC, BMP 07/23/18 09:40 07/23/18 09:40 INR, PTT INR 1.03 (0.83-1.09) 07/21/18 01:50 Problem List - Problems (1) Diabetes Assessment/Plan: -BGM AC HS -On novolog sliding scale -endocrinology on board, f/u o/p -A1c controlled at 6.3 Code(s): E11.9 - TYPE 2 DIABETES MELLITUS WITHOUT COMPLICATIONS (2) Diabetic foot ulcer Code(s): E11.621 - TYPE 2 DIABETES MELLITUS WITH FOOT ULCER; L97.509 - NON- PRESSURE CHRONIC ULCER OTH PRT UNSP FOOT W UNSP SEVERITY Qualifiers: Diabetic foot ulcer location: toe Diabetes mellitus type: type 2 Laterality: left Non-pressure ulcer stage: unspecified non-pressure ulcer stage Qualified Code(s): E11.621 - Type 2 diabetes mellitus with foot ulcer; L97.529 - Non-pressure chronic ulcer of other part of left foot with unspecified severity (3) ESRD (end stage renal disease) on dialysis Assessment/Plan: -Nephrology on board -dialysis MWF Code(s): N18.6 - END STAGE RENAL DISEASE; Z99.2 - DEPENDENCE ON RENAL DIALYSIS (4) Sick-euthyroid syndrome Assessment/Plan: -TSH low, but T4 normal -monitor thyroid profile outpatient Code(s): E07.81 - SICK-EUTHYROID SYNDROME (5) CVA (cerebral vascular accident) Assessment/Plan: -seen by cardiology and neurology -On statin+ aspirin Code(s): I63.9 - CEREBRAL INFARCTION, UNSPECIFIED Assessment/Plan see problem list
[2018-07-26] MEDS: SEVELAMER CARBONATE 800 MG TAB (FP) PO SCH ×3 (08:47→18:10)
[2018-07-26] MEDS: ACETAMINOPHEN 500 MG TABLET (FP) PO PRN (09:58)
[2018-07-26] MEDS: CARVEDILOL 6.25 MG TABLET (FP) PO SCH (09:58)
[2018-07-26] MEDS: ASPIRIN COATED 81 MG TABLET.EC PO SCH (09:58)
[2018-07-26] MEDS: DOCUSATE SODIUM 100 MG CAPSULE (FP) PO SCH (09:58)
[2018-07-26] MEDS: VITAMIN B COMP W-C 1 EA TABLET PO SCH (09:59)
[2018-07-26] MEDS: BACITRACIN 15 GM TUBE TOPICAL OINTMENT TP SCH (10:00)
[2018-07-26 14:02] VITALS: BP 126/59; PULSE 73; TEMP 97.9
--- NOTE | 2018-07-28 10:02 | HOL ---
Hook-up date: 2018-07-23 15:28:00 Duration: 24:00:00 Test Indications: CVA Medications: [id number] QRS complexes 4 Ventricular ectopics which represent <1 % of total QRS comp. 46 Supraventricular ectopics which represent <1 % of total QRS comp. * Paced QRS complexs which represent % of total QRS comp. 2 % of Time Classified as Noise VENTRICULAR ECTOPY 4 Isolated 0 Bigeminal Cycles 0 Couplets 0 Runs 0 Beats in Runs * Beats LONGEST at * BPM at :: -- * Beats FASTEST at * BPM at :: -- SUPRAVENTRICULAR ECTOPY 24 Isolated 3 Couplets 4 Runs 16 Beats in Runs 6 Beats LONGEST at 108 BPM at 16:42:58 2018-07-23 4 Beats FASTEST at 163 BPM at 16:51:09 2018-07-23 HEART RATES 60 MIN at 16:51:15 2018-07-23 74 AVG 83 MAX at 20:31:46 2018-07-23 LONGEST RR 1.232 secs at 16:30:48 2018-07-23 SCANNED BY: BLANCHE 07/26/18 1. BASELINE RHYTHM IS SINUS REHYTHM WITH AVERAGE HEART RATE OF 74 BPM. RATES VARIED FROM 60 TO 83 BPM 2. RARE VENTRICULAR ECTOPIES INCLUING PVCS 3. OCCASIONAL ATRIAL ECTOPIES INCLUDING APCS, COUPLETS AND 4 RUNS OF NSSVT LIKELY ATRIAL TACHYCARDIA LONGEST [address] NO SIGNIFICANT ST OR T ABNORMALITIES 5. DIARY WAS NOT SUBMITTED Confirmed by SHANTELL WATKINS MD ([id number]) on 07/28/2018 10:02:05 AM Referred By: Kathy ROSE Overread By: SHANTELL WATKINS MD
== END 2018-07-26 18:09 | disposition home health service (06) | DRG 637 ==
LOC: JER 00:41 → JERBED 03:43 → J8W 21:38
PROVIDERS: ADMIT Internal Medicine; ATTEND Family Medicine
PROC: 5A1D70Z Performance of Urinary Filtration, Intermittent, Less than 6 Hours Per Day (ICD-10-PCS; principal; 2018-07-25)
DX: E11.621 Type 2 diabetes mellitus with foot ulcer (principal); G93.41 Metabolic encephalopathy; I12.0 Hypertensive chronic kidney disease with stage 5 chronic kidney disease or end stage renal disease; N18.6 End stage renal disease; Z99.2 Dependence on renal dialysis; L97.529 Non-pressure chronic ulcer of other part of left foot with unspecified severity; I63.9 Cerebral infarction, unspecified; E07.81 Sick-euthyroid syndrome; E11.22 Type 2 diabetes mellitus with diabetic chronic kidney disease; E11.319 Type 2 diabetes mellitus with unspecified diabetic retinopathy without macular edema
CPT/HCPCS: 36415; 70551-TC; 73630-TC-LT; 80053; 82140; 82962; 83036; 83735; 84252; 84436; 84439; 84443; 84480; 85025; 85610; 85651; 86140; 86593; 86704; 86706; 86708; 86803; 87040; 87070; 87077; 87186; 87205; 87340; 93005; 93010; 93225; 93226; 93306-TC; 93880-TC; 97116-GP; 97162-GP; 99285-25; J0885